=== PATIENT | female | born 1995 | race Caucasian/White ===

== ENCOUNTER 2020-07-18 16:28 | Emergency (ER) | payer SELFPAY ==
--- OUTSIDE RECORDS SUMMARY | 2020-07-18 16:30 | XMS REPORT | Continuity of Care Document ---
:1995 Author Organization [facility] Address [address] [place] [address] Dr. Pickard[address] [place] [id number] Care Team Providers Name Role Phone NONE Primary Care Physician Unavailable Problems This patient has no known problems. Allergies, Adverse Reactions, Alerts This patient has no known allergies or adverse reactions. Medications This patient has no known medications. Procedures This patient has no known procedures. Encounters Start End Encounter Admission Attending Care Care Encounter Source Date/Time Date/Time Type Type Clinicians Facility Department ID 2016-11-21 2016-11-21 Emergency [facility] [id number] Medical 12:48:00 12:48:00 [facility] 2016-11-19 2016-11-19 Emergency E [facility] [id number] Medical 12:50:00 12:50:00 [facility] Results Test Description Test Time Test Comments Results Result Sourc e Comments PATHOLOGY REPORT 2018-09-29 TISSUE CONSULTATION 15:01:00 [facility].[address], [place] [address] CHANCE KING M.D.ROBERT L. HUTTON, M.D.CHARLES E. BURNS, M.D. 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 It rangesfrom 1.5 cm at the cystic duct to about 3 cm in diameter near themid fundus. The gallbladder is sectioned releasing slightlytenacious green-yellow bile and a single vzurhhur-caiqwkozongb-c reen stone about 1.8 cm in greatest diameters. Mucosa andmuscle wall are fairly uniformly 0.1 (or 0.2) cm in thickness. Nomucosal excrescences are seen. RS in one cassette.PATHOLOGIST: Deion Lewis Electronically Signed: 09/29/2018 B-HCG QUAL (KIT) 2018-09-26 10:25:00 Test Item Value Reference Range Interpretation Comme nts HCGQUAL (test code = HCGQUAL) NEGATIVE NEGATIVE URINE: NEGATIVE = < 20 mIU/ML; POSITIVE= >/= 2 0 mIU/ML SERUM: NEGATIVE = < 10 mIU/ML; POSITIVE= >/= 1 0 mIU/ML SOURCE (test code = SOURCE) URINE HCG INTERNAL POSITIVE CNTRL (test PASS PASS code = HCGIPC) HCG LOT # (test code = UHCGLOT) [id number] HCG EXPIRATION DATE (test code = 92194401 UHCGEXP) [id number] 11:03:00 Test Item Value Reference Range Interpretation Comments SODIUM (test code = 144 MMOL/L 137-145 NA) K+ (test code = 5.3 MMOL/L 3.5-5.1 H PLEASE NOTE NEW KSERUM) REFERENCE RANGE (S) IN EFFECT EFFECTIVE 010 - NEW ANALYZER (V ITROS 5600) CHLORIDE (test code 105 MMOL/L 98-107 = CL) CO2 (test code = 30 MMOL/L 22-30 CO2) BUN (test code = 11 MG/DL 7-17 BUN) CREA (test code = 0.5 MG/DL 0.7-1.2 L CREA) GLUCOSE (test code 83 MG/DL 70-99 Fasting glucose = GLUCOSE) normal <100 MG/ DL- Citizen Of [place] [employer] recommendation* * CALCIUM (test code 9.5 MG/DL 8.4-10.2 = CABLOOD) TOTPROT (test code 7.4 G/DL 6.3-8.2 = TOTPROT) ALBUMIN (test code 4.4 G/DL 3.5-5.0 = ALBSERUM) BILITOT (test code 0.3 MG/DL 0.2-1.3 = BILITOT) AST (test code = 19 U/L 15-46 AST) PHOSALK (test code 104 U/L 38-126 = PHOSALK) ALT (test code = 22 U/L 13-69 ALT) GFR (test code = 160 A GFR of >9 0 GFR) mL/min/1.73m2 mL/min/1.73m2 is considered norm al. [id number] 11:00:00 Test Item Value Reference Range Interpretation Comments GLUCOSE (test code = URGLU) NEGATIVE MG/DL NEG-100 BILIRUBN (test code = URBILI) NEGATIVE NEGATIVE KETONE (test code = URKET) NEGATIVE MG/DL NEGATIVE BLOOD (test code = URBLD) NEGATIVE UR PH (test code = URPH) 6.0 5.0-7.5 PROTEIN (test code = URPRO) NEGATIVE MG/DL NEGATIVE NITRITES (test code = URNIT) NEGATIVE NEGATIVE UROBILINGEN (test code = 0.2 EU/DL 0.2-1.0 URURO) LEUKOCYT (test code = URLEU) SMALL NEGATIVE UA COLOR (test code = UA YELLOW YELLOW COLOR) CLARITY (test code = CLARITY) CLEAR CLEAR SP GRAV (test code = URSPGRAV) 1.016 1.000-1.025 UAMICRO (test code = UAMICRO) YES WBC (test code = URWBC) 8 /HPF 0-5 H RBC (test code = URRBC) 0 /HPF 0-2 CASTS (test code = CAST) 2 /LPF 0-3 UR EPI (test code = EPI) 74 /LPF BACTERIA (test code = NEGATIVE NONE BACTERIA) [id number] 10:51:00 Test Item Value Reference Range Interpretation Comments WBC (test code = 7.4 K/UL 3.5-10.9 WBC) RBC (test code = 4.53 M/UL 4.0-5.0 RBC) HGB (test code = 12.8 G/DL 11.5-15.5 HGB) HCT (test code = 40.4 % 34-46 HCT) MCV (test code = 89.2 FL 80-98 MCV) MCH (test code = 28.3 PG 28-32 MCH) MCHC (test code = 31.7 G/DL 32.5-36.5 L MCHC) RDW (test code = 12.8 % 11.5-14.5 RDW) PLT (test code = 267 K/UL 150-450 PLT) MPV (test code = 9.3 FL 7.4-10.4 MPV) MANDIFF (test code = NO MANDIFF) SCAN (test code = NO SCAN) NEUT% (test code = 50.7 % 40-75 NEUT%) LYMPH% (test code = 35.4 % 24-44 LYMPH%) MONO% (test code = 5.6 % 0-13 MONO%) EOS% (test code = 7.7 % 0-4 H EOS%) BASO % (test code = 0.5 % 0-2 BASO%) IG (test code = IG) 0 % 0-1 IG% (test code = 0.1 % 0-1 IG% = Metam yelocytes, IG%) Myelocytes, and Promyelocytes. (Immature neutr ophils not including " bands".) > 3% IG indic ates risk of sepsis NRBC% (test code = 0 /100 WBC NRBC%) ABS NEUT (test code 3.7 K/UL 1.2-7.2 = NEUT) PROTHROMBIN TIME WITH [id number] 10:51:00 Test Item Value Reference Range Interpretation Comments PROTHROMBIN TIME 12.6 SECONDS 12.0-14.6 INR Usual R aung = 2 (test code = PT) to 3 for pr evention of deep vein thrombosis (DVT ) INR (test code = INR) 0.9 [id number] 10:51:00 Test Item Value Reference Range Interpretation Comments PTT (test code = 31.2 SECONDS 24.4-36.3 HEPARIN THE RAPEUTIC PTT) RANGE 57-92 SEC ONDS US [id number] 05:18:20Patient: BHARATH FLEMING Date/Time05/11/2018 05:03 CSTReason for ExamAbdominal pain, right upper quadrantReportOrdering Physician: Jayme higginbotham Indication: Abdominal pain, right upper quadrantAdditional Clinical Information:Permanent images are acquired for the patient's medical record. The pancreas is normal in appearance. The gallbladder is contracted. There is a stone in the sludge ball. Common bile duct measures 3 to 4.5 mm. There is no gallbladder wall thickening of the gallbladder is contracted. Intrahepatic bile ducts are not dilated.The right kidney is 12.7 x 5.7 cm with is no hydronephrosis.The liver is normal in size and echogenicity. Abdominal aorta and IVC normal in caliber.IMPRESSION: Contracted postprandial gallbladder.There is a visible stone and sludge ball without ultrasound evidence of acute cholecystitis.RL: [id number] Final Dictated by: MD Soraida, Soraida SDictated DT/TM: 05/11/2018 5:22 amSigned by:MD Soraida, Soraida SSigned (Electronic Signature): 05/11/2018 5:18 amCT Angio [id number] 01:53:01Patient: BHARATH FLEMING Date/Time05/11/2018 01:46 CSTReason for ExamChest painReportOrdering Physician: Ra TranClinical Indication: Chest painAdditional Clinical Information:The exam is performed with axial postcontrast images with 3-D MIPS reconstruction. The exam was performed using the ALARA principles. Interpretation based on extrapolated NASCET criteria.There is slightly suboptimal enhancement of the pulmonary arteries. There are no larger central emboli. The heart size is normal. There is no pericardial effusion. Upper liver spleen enhances normally.There is no adrenal mass. Probable gallstone.Lung windows shows no infiltrates or effusions.IMPRESSION: Slightly suboptimal enhancement of the pulmonary arteries. No larger central emboli.2. No infiltrates effusions or edema.3. Possible gallstone versus motion artifact.[id number]: [id number] Final Dictated by: MD Soraida, Soraida SDictated DT/TM: 05/11/2018 1:57 amSigned by: MD Soraida, Soraida SSigned (Electronic Signature): 05/11/2018 1:53 amHEPATITIS C ANTIBODY [id number] 08:00:00 Test Item Value Reference Range Interpretation Comments SCRN HCV (test code NEGATIVE NEGATIVE Hepatiti s C Antibody test = SCRN HCV) is for screenin g purposes only. All react chanelle will be confirmed by additional test ing. [id number] 06:32:00 Test Item Value Reference Range Interpretation Comments WBC (test code = 8.6 K/UL 3.5-10.9 WBC) RBC (test code = 2.91 M/UL 4.0-5.0 L RBC) HGB (test code = 8.6 G/DL 11.5-15.5 L HGB) HCT (test code = 26.1 % 34-46 L HCT) MCV (test code = 89.7 FL 80-98 MCV) MCH (test code = 29.6 PG 28-32 MCH) MCHC (test code = 33.0 G/DL 32.5-36.5 MCHC) RDW (test code = 12.2 % 11.5-14.5 RDW) PLT (test code = 128 K/UL 150-450 L PLT) MPV (test code = 11.8 FL 7.4-10.4 H MPV) MANDIFF (test code = NO MANDIFF) SCAN (test code = NO SCAN) NEUT% (test code = 69.1 % 40-75 NEUT%) LYMPH% (test code = 23.1 % 24-44 L LYMPH%) MONO% (test code = 6.3 % 0-13 MONO%) EOS% (test code = 0.9 % 0-4 EOS%) BASO % (test code = 0.2 % 0-2 BASO%) IG (test code = IG) 0 % 0-1 IG% (test code = 0.4 % 0-1 IG% = Metam yelocytes, IG%) Myelocytes, and Promyelocytes. (Immature neutr ophils not including " bands".) > 3% IG indic ates risk of sepsis NRBC% (test code = 0 /100 WBC NRBC%) ABS NEUT (test code 5.9 K/UL 1.2-7.2 = NEUT) RPR FOR SERUM [id number] 05:32:00 Test Item Value Reference Range Interpretation Comments RPR (test code = NONREACTIVE NONREACTIVE RPR) NR = NON-REACTIVE R = REACTIVE HIV 1/2 [id number] 12:38:00 Test Item Value Reference Range Interpretation Comments HIV 1/2 ANTIBODY NONREACTIVE NONREACTIVE This test i s used for (test code = AHIV) SCREENING purposes only. All reac tive results are pre limenary and confirmatio n results will fo llow. [id number] 12:13:00 Test Item Value Reference Range Interpretation Comments BLOOD TYPE (test code = TYPE) A Rh Positive ANTIBODY SCREEN (test code = NEGATIVE NEGATIVE SCREEN) DRUG SCREEN W/ [id number] 11:52:00 Test Item Value Reference Range Interpretation Comments AMPHETAMINES (test code NEGATIVE NEGATIVE This is an unconfirmed = AMPHET) screening. Res ult are to be used for medical purposes (treat ment) only. Not inte nded for non-medical purposes. Cut-o ff concentration f or a positive result for each drug: Amph etamine - 1,000 ng/ml Barbiturate - 2 00 ng/ml Benzodiaz epine - 200 ng/ml Canna binoids - 50 ng/ml Coca ine - 300 ng/ml Opiat es - 300 ng/ml PCP - 25 ng/ml BARBITURATES (test code NEGATIVE NEGATIVE = KAUSHIK) BENZODIAZEPINES (test NEGATIVE NEGATIVE code = BENZO) CANNABINOIDS (test code NEGATIVE NEGATIVE = NEGRA) COCAINE (test code = NEGATIVE NEGATIVE MARK) OPIATES (test code = NEGATIVE NEGATIVE OPIATE) PHENCYCLIDINE(PCP) NEGATIVE NEGATIVE (test code = PHENCY) [id number] 11:22:00 Test Item Value Reference Range Interpretation Comments WBC (test code = 10.1 K/UL 3.5-10.9 WBC) RBC (test code = 3.77 M/UL 4.0-5.0 L RBC) HGB (test code = 11.3 G/DL 11.5-15.5 L HGB) HCT (test code = 33.6 % 34-46 L HCT) MCV (test code = 89.1 FL 80-98 MCV) MCH (test code = 30.0 PG 28-32 MCH) MCHC (test code = 33.6 G/DL 32.5-36.5 MCHC) RDW (test code = 12.4 % 11.5-14.5 RDW) PLT (test code = 153 K/UL 150-450 PLT) MPV (test code = 11.5 FL 7.4-10.4 H MPV) MANDIFF (test code = NO MANDIFF) SCAN (test code = NO SCAN) NEUT% (test code = 81.0 % 40-75 H NEUT%) LYMPH% (test code = 14.6 % 24-44 L LYMPH%) MONO% (test code = 3.2 % 0-13 MONO%) EOS% (test code = 0.5 % 0-4 EOS%) BASO % (test code = 0.2 % 0-2 BASO%) IG (test code = IG) 0 % 0-1 IG% (test code = 0.5 % 0-1 IG% = Metam yelocytes, IG%) Myelocytes, and Promyelocytes. (Immature neutr ophils not including " bands".) > 3% IG indic ates risk of sepsis NRBC% (test code = 0 /100 WBC NRBC%) ABS NEUT (test code 8.2 K/UL 1.2-7.2 H = NEUT) [id number] 11:21:00 Test Item Value Reference Range Interpretation Comments GLUCOSE (test code = URGLU) NEGATIVE MG/DL NEG-100 BILIRUBN (test code = URBILI) NEGATIVE NEGATIVE KETONE (test code = URKET) 15 MG/DL NEGATIVE BLOOD (test code = URBLD) MODERATE UR PH (test code = URPH) 7.0 5.0-7.5 PROTEIN (test code = URPRO) 300 MG/DL NEGATIVE NITRITES (test code = URNIT) NEGATIVE NEGATIVE UROBILINGEN (test code = 0.2 EU/DL 0.2-1.0 URURO) LEUKOCYT (test code = URLEU) NEGATIVE NEGATIVE UA COLOR (test code = UA YELLOW YELLOW COLOR) CLARITY (test code = CLARITY) CLOUDY CLEAR SP GRAV (test code = URSPGRAV) 1.016 1.000-1.025 UAMICRO (test code = UAMICRO) YES WBC (test code = URWBC) 4 /HPF 0-5 RBC (test code = URRBC) 15 /HPF 0-2 H CASTS (test code = CAST) 8 /LPF 0-3 H UR EPI (test code = EPI) 167 /LPF BACTERIA (test code = TRACE NONE BACTERIA) 37200& PELVIS W/O [id number] 13:58:51CT ABDOMEN AND CT PELVIS WITHOUT IV OR ORAL CONTRAST (CT STONEPROTOCOL):CLINICAL HISTORY: Vaginal ble eding. Back pain.Radiation dose lowering techniques were used with automated exposurecontrol, adjusting the mA according to patient's size.Images were started at the lung bases and extended through theupperabdomen and below the pubic symphysis without IV or oral contrast.Examination was tailored as astone protocol. No previous studies areavailable for comparison at the time interpretation. The partiallyvisualized lung bases appear clear. No abnormality is seen within theliver or spleen on this noncontrast examination. The right lobe of theliver measures 17.4 cm in length. The spleen measures 9.7 cm in length.The gallbladder appears normal. Both adrenal glands are normal incontour. Pancreas appears normal. There are no intrarenal calculi andthere is no obstructive uropathy. The abdominal aorta and IVC are normalin caliber. No retroperitoneal or mesenteric adenopathy is identified.The images were extended inferiorly below the pubic symphysis. There areno pelvic masses, or pelvic adenopathy. A large right ovarian cyst isidentified measuring 5 cm in diameter. IUD is noted a tampon is seenwithin the vagina. A trace amount of free fluid is seen within thepelvis.IMPRESSION:1. Right ovarian this measuring 5 cm in diameter. Trace amount of freefluid is seen within the pelvis.2. IUD is noted.3. No intrarenal calculi or obstructive uropathy.Report was printed in the emergency room at 1405 hours.
--- NOTE | 2020-07-18 20:38 | ER ---
Nurse's Notes [facility] Name: Rod Chiu Age: 24 yrs Sex: Female : 1995 Arrival Date: 07/18/2020 Time: 16:31 Bed 12 Private MD: Diagnosis: Acute pharyngitis;Acute pharyngitis due to other specified organisms Presentation: 07/18 17:05 Chief complaint: Patient states: PELAEZ, and sore throat since Saturday. Slight cough. ll1 Coronavirus screen: Client denies travel out of the [place] in the last 14 days. cough unrelated to allergies, fatigue, headache, nausea, sore throat, Client presents with at least one sign or symptom that may indicate coronavirus-19. Standard/surgical mask placed on the client. Ebola Screen: Patient denies travel to an Ebola-affected area in the 21 days before illness onset. Initial Sepsis Screen: Does the patient meet any 2 criteria? No. Patient's initial sepsis screen is negative. Does the patient have a suspected source of infection? Yes: Other: sore throat. Risk Assessment: Do you want to hurt yourself or someone else? Patient reports no desire to harm self or others. Onset of symptoms was July 16, 2020. 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 - Social history:: Smoking status: Patient denies any tobacco usage or history of. Screenin:30 Abuse screen: Denies threats or abuse. Denies injuries from another. Nutritional wh screening: No deficits noted. Tuberculosis screening: No symptoms or risk factors identified. Fall Risk None identified. Assessment: 19:20 General: Appears in no apparent distress. Behavior is calm, cooperative, appropriate wh for age. Pain: Complains of pain in sore throat. Neuro: Level of Consciousness is awake, alert, obeys commands, Oriented to person, place, time, situation, Appropriate for age. Cardiovascular: Heart tones S1 S2. Respiratory: Airway is patent Respiratory effort is even, unlabored, Respiratory pattern is regular, symmetrical, Breath sounds are clear bilaterally. GI: Abdomen is flat, non-distended. : No signs and/or symptoms were reported regarding the genitourinary system. EENT: Throat is reddened. Derm: Skin is intact, is healthy with good turgor, Skin is pink, warm \T\ dry. normal. Musculoskeletal: Circulation, motion, and sensation intact. 20:29 Reassessment: Patient appears in no apparent distress at this time. No changes from previously documented assessment. Patient and/or family updated on plan of care and expected duration. Pain level reassessed. Patient is alert, oriented x 3, equal unlabored respirations, skin warm/dry/pink. Vital Signs: 17:05 BP 120 / 79; Pulse 89; Resp 16; Temp 98.9; Pulse Ox 99% ; Weight 68.04 kg; Height 5 ft. ll1 2 in. (157.48 cm); Pain 8/10; 20:30 BP 118 / 76; Pulse 84; Resp 18; Pulse Ox 99% on R/A; wh 17:05 Body Mass Index 27.44 (68.04 kg, 157.48 cm) 1 ED Course: 16:31 Patient arrived in ED. mr 17:06 Triage completed. ll1 17:07 Arm band placed on. 1 19:21 Juan Rivera MD is Attending Physician. tw4 19:22 Temi Shaw, RN is Primary Nurse. 19:30 Patient has correct armband on for positive identification. Bed in low position. Call light in reach. Side rails up X 1. Pulse ox on. NIBP on. 20:52 No provider procedures requiring assistance completed. Patient did not have IV access during this emergency room visit. Administered Medications: No medications were administered Outcome: 20:38 Discharge ordered by . tw4 20:52 Discharged to home ambulatory, with family. 20:52 Condition: stable 20:52 Discharge instructions given to patient, Instructed on discharge instructions, follow up and referral plans. POC Demonstrated understanding of instructions, follow-up care, POC 20:53 Patient left the ED. Signatures: WatsonRosa M mr Temi Shaw, RN RN Juan Rivera MD MD 4 Zia, Lynsay, RN RN ll1
--- NOTE | 2020-07-18 20:39 | EDPHYS ---
Physician Documentation [facility] Name: Rod Chiu Age: 24 yrs Sex: Female : 1995 Arrival Date: 07/18/2020 Time: 16:31 Bed 12 Private MD: ED Physician Juan Rivera HPI: 07/18 20:22 This 24 yrs old Female presents to ER via Ambulatory with complaints of Sore tw4 Throat. 20:22 The patient presents with sore throat. The patient describes throat pain as dry. Onset: tw4 The symptoms/episode began/occurred 2 day(s) ago. Severity of symptoms: At their worst the symptoms were moderate, in the emergency department the symptoms are unchanged. Modifying factors: The symptoms are alleviated by nothing, the symptoms are aggravated by swallowing. Associated signs and symptoms: Pertinent positives: flu-like symptoms, myalgias. The patient has not experienced similar symptoms in the past. 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 - Social history:: Smoking status: Patient denies any tobacco usage or history of. ROS: 20:22 Constitutional: Negative for fever, chills, and weight loss, Eyes: Negative for injury, tw4 pain, redness, and discharge. 20:22 Neck: Negative for injury, pain, and swelling, Cardiovascular: Negative for chest pain, palpitations, and edema, Respiratory: Negative for shortness of breath, cough, wheezing, and pleuritic chest pain, Abdomen/GI: Negative for abdominal pain, nausea, vomiting, diarrhea, and constipation, Back: Negative for injury and pain, MS/Extremity: Negative for injury and deformity, Skin: Negative for injury, rash, and discoloration, Neuro: Negative for headache, weakness, numbness, tingling, and seizure. 20:22 ENT: Positive for sore throat. Exam: 20:22 Constitutional: This is a well developed, well nourished patient who is awake, alert, tw4 and in no acute distress. Head/Face: Normocephalic, atraumatic. Chest/axilla: Normal chest wall appearance and motion. Nontender with no deformity. No lesions are appreciated. Cardiovascular: Regular rate and rhythm with a normal S1 and S2. No gallops, murmurs, or rubs. Normal PMI, no JVD. No pulse deficits. Respiratory: Lungs have equal breath sounds bilaterally, clear to auscultation and percussion. No rales, rhonchi or wheezes noted. No increased work of breathing, no retractions or nasal flaring. 20:22 ENT: Posterior pharynx: erythema, that is mild. Vital Signs: 17:05 BP 120 / 79; Pulse 89; Resp 16; Temp 98.9; Pulse Ox 99% ; Weight 68.04 kg; Height 5 ft. ll1 2 in. (157.48 cm); Pain 8/10; 20:30 BP 118 / 76; Pulse 84; Resp 18; Pulse Ox 99% on R/A; wh 17:05 Body Mass Index 27.44 (68.04 kg, 157.48 cm) ll1 MDM: 20:22 Data reviewed: vital signs, nurses notes. Data reviewed: lab test result(s). Data tw4 interpreted: Pulse oximetry: Interpretation: normal. Test interpretation: by ED physician or midlevel provider:. Counseling: I had a detailed discussion with the patient and/or guardian regarding: the historical points, exam findings, and any diagnostic results supporting the discharge/admit diagnosis. 20:38 Patient medically screened. tw4 07/18 19:25 Order name: Strep; Complete Time: 20:37 tw4 07/18 19:59 Order name: Throat Culture EDMS Administered Medications: No medications were administered Disposition: 07/18/20 20:38 Discharged to Home. Impression: Acute pharyngitis, Acute pharyngitis due to other specified organisms. - Condition is Stable. - Discharge Instructions: Pharyngitis, Viral Respiratory Infection, Pharyngitis, Ptqg-ea-Bozd, Sore Throat, Csdq-tx-Qyqq. - Medication Reconciliation Form, Thank You Letter, Antibiotic Education, Prescription Opioid Use form. - Follow up: Private Physician; When: Upon discharge from the Emergency Department; Reason: Recheck today's complaints, Continuance of care, Re-evaluation by your physician. Signatures: Dispatcher [employer] EDMS Temi Shaw, RN RN wh Juan Rivera MD MD tw4 Dev Lizarraga RN RN ll1 Corrections: (The following items were deleted from the chart) 20:53 20:38 07/18/2020 20:38 Discharged to Home. Impression: Acute pharyngitis; Acute wh pharyngitis due to other specified organisms. Condition is Stable. Forms are Medication Reconciliation Form, Thank You Letter, Antibiotic Education, Prescription Opioid Use. Follow up: Private Physician; When: Upon discharge from the Emergency Department; Reason: Recheck today's complaints, Continuance of care, Re-evaluation by your physician. tw4
[2020-07-18 21:45] VITALS: BP 118/76; O2SAT 99
[2020-07-18 21:47] VITALS: TEMP 98.9
== END 2020-07-18 20:53 | disposition home or self-care (01) ==
LOC: ER 16:28
DX: J02.8 Acute pharyngitis due to other specified organisms (principal)
CPT/HCPCS: 87070; 87081; 99283

== ENCOUNTER 2021-09-21 09:21 | Emergency (ER) | payer OTHER, SELFPAY ==
--- OUTSIDE RECORDS SUMMARY | 2021-09-21 09:23 | XMS REPORT | Continuity of Care Document ---
:1995 Author Organization [facility] t Address [address] [place] [address] [address] Care Team Providers Name Role Phone NONE [...] ID 2016-11-21 2016-11-21 Emergency E [facility] [id number] Medical 12:48:00 12:48:00 [facility] 2016-11-19 2016-11-19 Emergency E [facility] [id number] Medical 12:50:00 12:50:00 [facility] Results Test Description Test Time Test Comments Results Result Sourc e Comments PATHOLOGY REPORT 2018-09-29 TISSUE CONSULTATION 15:01:00 [facility] PFLUGERVILLEDEPARTMENT OF PATHOLOGYP.O[address] [address] CHANCE KING M.D.ROBERT L. HUTTON, M.D.CHARLES E. BURNS, M.D. 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 It rangesfrom 1.5 cm at the cystic duct to about 3 cm in diameter near themid fundus. The gallbladder is sectioned releasing slightlytenacious green-yellow bile and a single mozyeibn-csmrbfxfnacw-s reen stone about 1.8 cm in greatest [...] HCG LOT # (test code = UHCGLOT) [id number] HCG EXPIRATION DATE (test code = 29156571 UHCGEXP) [id number] 11:03:00 Test Item Value Reference Range Interpretation [...] glucose = GLUCOSE) normal <100 MG/ DL- [employer] recommendation* * CALCIUM (test [...] GFR) mL/min/1.73m2 mL/min/1.73m2 is considered norm al. [id number] 11:00:00 Test Item Value Reference Range Interpretation [...] BACTERIA (test code = NEGATIVE NONE BACTERIA) [id number] 10:51:00 Test Item Value Reference Range Interpretation [...] K/UL 1.2-7.2 = NEUT) PROTHROMBIN TIME WITH [id number] 10:51:00 Test Item Value Reference Range Interpretation Comments PROTHROMBIN TIME 12.6 SECONDS 12.0-14.6 INR Usual R aung = 2 (test code = PT) to 3 for pr evention of deep vein thrombosis (DVT ) INR (test code = INR) 0.9 [id number] 10:51:00 Test Item Value Reference Range Interpretation Comments PTT (test code = 31.2 SECONDS 24.4-36.3 HEPARIN THE RAPEUTIC PTT) RANGE 57-92 SEC ONDS US [id number] 05:18:20Patient: BHARATH FLEMING Date/Time05/11/2018 05:03 CSTReason for [...] without ultrasound evidence of acute cholecystitis.RL: 460AF: 97023 Final Dictated by: MD Soraida, Soraida SDictated DT/TM: 05/11/2018 5:22 amSigned by:MD Soraida Soraida SSigned (Electronic Signature): 05/11/2018 5:18 amCT Angio [id number] 01:53:01Patient: BHARATH FLEMING Date/Time05/11/2018 01:46 CSTReason for ExamChest painReportOrdering Physician: Ra Persaudinical Indication: Chest painAdditional Clinical Information:The exam is [...] or edema.3. Possible gallstone versus motion artifact.RL: 460AF: 43307 Final Dictated by: MD Soraida, Soraida SDictated DT/TM: 05/11/2018 1:57 amSigned by: MD Soraida Soraida SSigned (Electronic Signature): 05/11/2018 1:53 amHEPATITIS C ANTIBODY [id number] 08:00:00 Test Item Value Reference Range Interpretation Comments SCRN HCV (test code NEGATIVE NEGATIVE Hepatiti s C Antibody test = SCRN HCV) is for screenin g purposes only. All react chanelle will be confirmed by additional test ing. [id number] 06:32:00 Test Item Value Reference Range Interpretation [...] K/UL 1.2-7.2 = NEUT) RPR FOR SERUM [id number] 05:32:00 Test Item Value Reference Range Interpretation Comments RPR (test code = NONREACTIVE NONREACTIVE RPR) NR = NON-REACTIVE R = REACTIVE HIV 1/2 [id number] 12:38:00 Test Item Value Reference Range Interpretation Comments HIV 1/2 ANTIBODY NONREACTIVE NONREACTIVE This test i s used for (test code = AHIV) SCREENING purposes only. All reac tive results are pre limenary and confirmatio n results will fo llow. [id number] 12:13:00 Test Item Value Reference Range Interpretation Comments BLOOD TYPE (test code = TYPE) A Rh Positive ANTIBODY SCREEN (test code = NEGATIVE NEGATIVE SCREEN) DRUG SCREEN W/ [id number] 11:52:00 Test Item Value Reference Range Interpretation [...] PHENCYCLIDINE(PCP) NEGATIVE NEGATIVE (test code = PHENCY) [id number] 11:22:00 Test Item Value Reference Range Interpretation [...] code 8.2 K/UL 1.2-7.2 H = NEUT) [id number] 11:21:00 Test Item Value Reference Range Interpretation [...] BACTERIA (test code = TRACE NONE BACTERIA) 75136& PELVIS W/O [id number] 13:58:51CT ABDOMEN AND CT PELVIS WITHOUT IV [...]
--- NOTE | 2021-09-21 09:45 | EDPHYS ---
Physician Documentation [facility] Name: Rod Chiu Age: 26 yrs Sex: Female : 1995 Arrival Date: 09/21/2021 Time: 09:23 Bed 18 Private MD: ED Physician Wilbert Valverde HPI: 09/21 09:26 This 26 yrs old Female presents to ER via Ambulatory with complaints of Nausea, Neck sm6 Pain, <24hrs Old. 09:26 This 26 yrs old Female presents to ER via Ambulatory with complaints of Nausea, Neck sm6 Pain, <24hrs Old. 09:26 The patient presents to the emergency department with nausea, that is mild. Onset: The sm6 symptoms/episode began/occurred gradually, 2 week(s) ago. Possible causes: Stress. The symptoms are aggravated by movement, The symptoms are alleviated by nothing. OTC Ibuprofen has helped slightly. Associated signs and symptoms: Pertinent positives: nausea, Pertinent negatives: abdominal pain, fever, vomiting, difficulty speaking or walking. . Severity of symptoms: At their worst the symptoms were moderate in the emergency department the symptoms are unchanged Pain is currently a 5 / 10. The patient has experienced similar episodes in the past, multiple times. The patient has not recently seen a physician. This 26 year old female that drove herself to the ER is concerned over ongoing headache that starts in upper back and bilateral neck and radiates up back of head is causing constant pressure headache that has not been relieved by Ibuprofen and over the counter migraine medication that she tried once. . 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 - Social history:: Smoking status: Patient denies any tobacco usage or history of. Patient/guardian denies using street drugs, IV drugs, over the counter diet medications, tobacco products. - Family history:: not pertinent. ROS: 09:59 Constitutional: Negative for fever, chills, and weight loss, Eyes: Negative for injury, sm6 pain, redness, and discharge, ENT: Negative for injury, pain, and discharge, Cardiovascular: Negative for chest pain, palpitations, and edema, Respiratory: Negative for shortness of breath, cough, wheezing, and pleuritic chest pain, MS/Extremity: Negative for injury and deformity, Skin: Negative for injury, rash, and discoloration, Allergy/Immunology: Negative for hives, rash, and allergies, Hematologic/Lymphatic: Negative for swollen nodes, abnormal bleeding, and unusual bruising. 09:59 Neck: Positive for pain with movement, pain at rest, tenderness, Negative for injury or acute deformity, mass, swollen nodes. 09:59 Abdomen/GI: Positive for nausea, Negative for abdominal pain, vomiting, diarrhea, constipation. 09:59 Back: Positive for pain with movement, Negative for injury or acute deformity. 09:59 Neuro: Positive for headache, Negative for altered mental status, dizziness, seizure activity, syncope, weakness. 09:59 Psych: Positive for Stress. Exam: 10:08 Constitutional: This is a well developed, well nourished patient who is awake, alert, sm6 and in no acute distress. Head/Face: Normocephalic, atraumatic. Eyes: Pupils equal round and reactive to light, extra-ocular motions intact. Lids and lashes normal. Conjunctiva and sclera are non-icteric and not injected. Cornea within normal limits. Periorbital areas with no swelling, redness, or edema. ENT: Nares patent. No nasal discharge, no septal abnormalities noted. Oropharynx with no redness, swelling, or masses, exudates, or evidence of obstruction, uvula midline. Mucous membranes moist. Neck: Trachea midline, no thyromegaly or masses palpated, and no cervical lymphadenopathy. No Meningismus. Cardiovascular: Regular rate and rhythm with a normal S1 and S2. No gallops, murmurs, or rubs. Normal PMI, no JVD. No pulse deficits. Respiratory: Lungs have equal breath sounds bilaterally, clear to auscultation and percussion. No rales, rhonchi or wheezes noted. No increased work of breathing, no retractions or nasal flaring. Abdomen/GI: Soft, non-tender, with normal bowel sounds. No distension or tympany. No guarding or rebound. No evidence of tenderness throughout. Back: No spinal tenderness. Full range of motion. Skin: Warm, dry with normal turgor. Normal color with no rashes, no lesions, and no evidence of cellulitis. Neuro: Awake and alert, GCS 15, oriented to person, place, time, and situation. Cranial nerves II-XII grossly intact. Motor strength 5/5 in all extremities. Sensory grossly intact. Cerebellar exam normal. Normal gait. Normal finger to nose and Rhomberg. Psych: Awake, alert, with orientation to person, place and time. Behavior, mood, and affect are within normal limits. 10:08 Neck: C-spine: Paraspinous tenderness right worse than left. , ROM/movement: pain, that is mild, with rotation to the left, with rotation to the right. 10:08 Back: pain, that is mild, of the left trapezius, right trapezius, left scapular area and right scapular area, muscle spasm, Tightness noted to trapezius area. . Vital Signs: 09:30 BP 133 / 86; Pulse 80; Resp 16; Temp 98.2; Pulse Ox 100% ; Weight 71.21 kg; Height 5 ll1 ft. 2 in. (157.48 cm); Pain 7/10; 09:30 Body Mass Index 28.72 (71.21 kg, 157.48 cm) ll1 MDM: 09:45 Patient medically screened. [facility] 10:15 Data reviewed: vital signs, nurses notes. [facility] 10:16 ED course: Patient has frequent headaches and is in no acute distress. Patient has no [facility] neurological changes that would warrant further diagnostic testing. Patient is in agreement that we will give her non sedating oral medications due to her needing to drive herself back home. She will try prescribed medication and do further follow up with her primary care provider. . 10:23 Data interpreted: Pulse oximetry:. Counseling: I had a detailed discussion with the [facility] patient and/or guardian regarding: the historical points, exam findings, and any diagnostic results supporting the discharge/admit diagnosis, the need for outpatient follow up, to return to the emergency department if symptoms worsen or persist or if there are any questions or concerns that arise at home. Response to treatment: There is no appreciated change of the patient's symptoms at this time, Patient needs to drive herself home. . Administered Medications: 09:54 Drug: Ondansetron 4 mg Route: PO; [facility] 09:54 Drug: Fioricet - Esgic 325 mg-40 mg-50 mg 2 tab-caps Route: PO; jh6 Disposition: 18:09 Co-signature as Attending Physician, Wilbert Valverde MD. ma2 Disposition Summary: 09/21/21 09:45 Discharge Ordered Location: Home sm6 Problem: an ongoing problem sm6 Symptoms: are unchanged sm6 Condition: Stable sm6 Diagnosis - Episodic tension-type headache sm6 - Nausea sm6 Discharge Instructions: - Discharge Summary Sheet sm6 - General Headache Without Cause, Ptoo-wc-Ribp sm6 Forms: - Medication Reconciliation Form sm6 - Thank You Letter sm6 - Antibiotic Education sm6 - Prescription Opioid Use sm6 Prescriptions: - Fioricet 50-300-40 mg Oral capsule - take 1 capsule by ORAL route every 4 hours as needed; 20 capsule; Refills: 0, sm6 Product Selection Permitted Signatures: Wilbert Valverde MD MD ma2 Dev Lizarraga RN RN 1 Ingrid Gill RN RN jh6 Judith Hernandez NP HOME ENERGY INSPECTOR 6 Corrections: (The following items were deleted from the chart) 09:59 09:42 This 26 yrs old Female presents to ER via Ambulatory with complaints of Nausea, sm6 Neck Pain, <24hrs Old. 6 10:29 10:23 Admission orders: after a detailed discussion of the patient's condition and 6 case, the admit orders are written by me. 6 : 10:23 Medical screen evaluation completed. EMTALA emergency medical condition absent. 6 6
--- NOTE | 2021-09-21 09:45 | ER ---
Nurse's Notes [facility] Name: Rod Chiu Age: 26 yrs Sex: Female : 1995 Arrival Date: 09/21/2021 Time: 09:23 Bed 18 Private MD: Diagnosis: Episodic tension-type headache;Nausea Presentation: 09/21 09:30 Chief complaint: Patient states: PELAEZ with neck pain and nausea since 09/05. No fever. Not ll1 sleeping well. Coronavirus screen: Vaccine status: Patient reports being unvaccinated. Client denies travel out of the [place] in the last 14 days. At this time, the client does not indicate any symptoms associated with coronavirus-19. Ebola Screen: Patient denies travel to an Ebola-affected area in the 21 days before illness onset. Initial Sepsis Screen: Does the patient meet any 2 criteria? No. Patient's initial sepsis screen is negative. Does the patient have a suspected source of infection? Yes: S/S of meningitis or endocarditis. Risk Assessment: Do you want to hurt yourself or someone else? Patient reports no desire to harm self or others. Onset of symptoms was September 05, 2021. 09:30 Method Of Arrival: Ambulatory 1 09:30 Acuity: JAIDEN 3 ll1 Triage Assessment: 09:31 General: Appears uncomfortable, Behavior is cooperative, appropriate for age. Pain: ll1 Complains of pain in head Quality of pain is described as aching. Neuro: Reports dizziness, headache. GI: Reports nausea. 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 - Social history:: Smoking status: Patient denies any tobacco usage or history of. Patient/guardian denies using street drugs, IV drugs, over the counter diet medications, tobacco products. - Family history:: not pertinent. Screenin:30 Abuse screen: Denies threats or abuse. Nutritional screening: No deficits noted. jh6 09:30 Tuberculosis screening: No symptoms or risk factors identified. Fall Risk None jh6 identified. Assessment: 09:30 General: Appears in no apparent distress. comfortable, Behavior is calm, cooperative. jh6 09:30 Pain: Complains of pain in forehead and right side of head Pain currently is 6 out of jh6 10 on a pain scale. Quality of pain is described as throbbing. Neuro: Oriented to person, place, time, Reports headache frontal area. GI: Abdomen is flat, Bowel sounds present X 4 quads. Reports nausea. Musculoskeletal: Reports pain in base of the skull. 09:50 General: pt states that she has never had the meds that were prescribed before. advised jh6 that she will be watched for 15-20min for evaluation for reaction. . 10:23 Reassessment: No changes from previously documented assessment. pt has had no reaction jh6 to meds. Vital Signs: 09:30 BP 133 / 86; Pulse 80; Resp 16; Temp 98.2; Pulse Ox 100% ; Weight 71.21 kg; Height 5 ll1 ft. 2 in. (157.48 cm); Pain 7/10; 09:30 Body Mass Index 28.72 (71.21 kg, 157.48 cm) 1 ED Course: 09:23 Patient arrived in ED. rg4 09:26 Judith Hernandez NP is PHCP. sm6 09:26 Wilbert Valverde MD is Attending Physician. 6 09:28 Ingrid Gill, RN is Primary Nurse. jh6 09:29 Arm band placed on Patient placed in an exam room, on a stretcher. ll1 09:31 Triage completed. ll1 09:56 Bed in low position. Call light in reach. Side rails up X 1. jh6 10:24 Patient did not have IV access during this emergency room visit. 6 Administered Medications: 09:54 Drug: Ondansetron 4 mg Route: PO; jh6 09:54 Drug: Fioricet - Esgic 325 mg-40 mg-50 mg 2 tab-caps Route: PO; 6 Outcome: 09:45 Discharge ordered by . 6 10:23 Discharged to home ambulatory. jh6 10:23 Condition: good 10:23 Discharge instructions given to patient, Instructed on discharge instructions, follow up and referral plans. Demonstrated understanding of instructions, follow-up care, medications, Prescriptions given X 1. 10:24 Patient left the ED. 6 Signatures: Mendy Gr rg4 Dev Lizarraga, RN RN ll1 Ingrid Gill RN RN jh6 Judith Hernandez, CIRCUIT DESIGN ENGINEER CIRCUIT DESIGN ENGINEER sm6
[2021-09-21] MEDS ORDERED: ACETAMIN/CAFFEINE/BUTALB TAB PO ONE (09:55)
[2021-09-21] MEDS ORDERED: ONDANSETRON 4 MG (ODT) TAB ONE (09:56)
[2021-09-21 10:34] VITALS: BP 133/86; TEMP 98.2; O2SAT 100
== END 2021-09-21 10:24 | disposition home or self-care (01) ==
LOC: ER 09:21
DX: G44.219 Episodic tension-type headache, not intractable (principal); R11.0 Nausea
CPT/HCPCS: 99283

== ENCOUNTER 2021-09-26 11:46 | Emergency (ER) | payer OTHER ==
--- OUTSIDE RECORDS SUMMARY | 2021-09-26 11:49 | XMS REPORT | Continuity of Care Document ---
:1995 Author Organization [facility] Address [address] [place] [address] Dr. Pickard[address] [place] [address] Care Team Providers Name Role Phone NONE [...] ID 2016-11-21 2016-11-21 Emergency E [facility] [id number] Medical 12:48:00 12:48:00 [facility] 2016-11-19 2016-11-19 Emergency E [facility] [id number] Medical 12:50:00 12:50:00 [facility] Results Test Description Test Time Test Comments Results Result Sourc e Comments PATHOLOGY REPORT 2018-09-29 TISSUE CONSULTATION 15:01:00 [facility]PORTBAPTIST [facility]ENTERDEPARTMENT OF PATHOLOGYP.O[address], [place] [address] CHANCE KING M.D.ROBERT L. HUTTON, M.D.CHARLES E. BURNS, M.D. Patient: BHARATH FLEMING 1995 23 FRoom:Hosp#: [id number] Order ing Physician: Donald ZAYAS Rec.: 09/26/2018Date of Proc.: 09/26/2018Lab No.: [id number] Cli nical History:Calculus of gallbladder with acute [...] releasing slightlytenacious green-yellow bile and a single pidjvkzv-wzgyglulmlhe-c reen stone about 1.8 cm in greatest [...] HCG LOT # (test code = UHCGLOT) [id number] HCG EXPIRATION DATE (test code = 65415118 UHCGEXP) [id number] 11:03:00 Test Item Value Reference Range Interpretation [...] glucose = GLUCOSE) normal <100 MG/ DL- [employer] recommendation* * CALCIUM (test [...] GFR) mL/min/1.73m2 mL/min/1.73m2 is considered norm al. [id number] 11:00:00 Test Item Value Reference Range Interpretation [...] BACTERIA (test code = NEGATIVE NONE BACTERIA) [id number] 10:51:00 Test Item Value Reference Range Interpretation [...] K/UL 1.2-7.2 = NEUT) PROTHROMBIN TIME WITH [id number] 10:51:00 Test Item Value Reference Range Interpretation Comments PROTHROMBIN TIME 12.6 SECONDS 12.0-14.6 INR Usual R aung = 2 (test code = PT) to 3 for pr evention of deep vein thrombosis (DVT ) INR (test code = INR) 0.9 [id number] 10:51:00 Test Item Value Reference Range Interpretation Comments PTT (test code = 31.2 SECONDS 24.4-36.3 HEPARIN THE RAPEUTIC PTT) RANGE 57-92 SEC ONDS US [id number] 05:18:20Patient: BHARATH FLEMING Date/Time05/11/2018 05:03 CSTReason for [...] without ultrasound evidence of acute cholecystitis.RL: 460AF: 79375 Final Dictated by: MD Soraida, Soraida SDictated DT/TM: 05/11/2018 5:22 amSigned by:MD Soraida, Soraida SSigned (Electronic Signature): 05/11/2018 5:18 amCT Angio [id number] 01:53:01Patient: BHARATH FLEMING Date/Time05/11/2018 01:46 CSTReason for [...] edema.3. Possible gallstone versus motion artifact.RL: 460AFC: [id number] Final Dictated by: MD Soraida, Soraida SDictated DT/TM: 05/11/2018 1:57 amSigned by: MD Soraida, Soraida SSigned (Electronic Signature): 05/11/2018 1:53 amHEPATITIS C ANTIBODY [id number] 08:00:00 Test Item Value Reference Range Interpretation Comments SCRN HCV (test code NEGATIVE NEGATIVE Hepatiti s C Antibody test = SCRN HCV) is for screenin g purposes only. All react chanelle will be confirmed by additional test ing. [id number] 06:32:00 Test Item Value Reference Range Interpretation [...] K/UL 1.2-7.2 = NEUT) RPR FOR SERUM [id number] 05:32:00 Test Item Value Reference Range Interpretation Comments RPR (test code = NONREACTIVE NONREACTIVE RPR) NR = NON-REACTIVE R = REACTIVE HIV 1/2 [id number] 12:38:00 Test Item Value Reference Range Interpretation Comments HIV 1/2 ANTIBODY NONREACTIVE NONREACTIVE This test i s used for (test code = AHIV) SCREENING purposes only. All reac tive results are pre limenary and confirmatio n results will fo llow. [id number] 12:13:00 Test Item Value Reference Range Interpretation Comments BLOOD TYPE (test code = TYPE) A Rh Positive ANTIBODY SCREEN (test code = NEGATIVE NEGATIVE SCREEN) DRUG SCREEN W/ [id number] 11:52:00 Test Item Value Reference Range Interpretation [...] PHENCYCLIDINE(PCP) NEGATIVE NEGATIVE (test code = PHENCY) [id number] 11:22:00 Test Item Value Reference Range Interpretation [...] code 8.2 K/UL 1.2-7.2 H = NEUT) [id number] 11:21:00 Test Item Value Reference Range Interpretation [...] BACTERIA (test code = TRACE NONE BACTERIA) 85244& PELVIS W/O [id number] 13:58:51CT ABDOMEN AND CT PELVIS WITHOUT IV [...]
--- NOTE | 2021-09-26 13:12 | RAD REPORT ---
EXAM DESCRIPTION: RAD - Chest Single View - 09/26/2021 1:02 pm CLINICAL HISTORY: CHEST PAIN COMPARISON: None available TECHNIQUE: AP portable chest image was obtained 09/26/2021 1:02 pm . FINDINGS: Lungs are clear. Heart and vasculature are normal. No measurable pleural effusion and no p neumothorax. No acute bony abnormality seen. No acute aortic findings suspected. Two metallic bars ov erlie the lower chest from body piercings. IMPRESSION: No acute cardiopulmonary process.
[2021-09-26] MEDS ORDERED: ONDANSETRON 4 MG/2 ML VIAL ONE (13:53)
[2021-09-26] MEDS ORDERED: LIDOCAINE VISCOUS 2% SOLN 15 ML UDC ONE (13:53)
[2021-09-26] MEDS ORDERED: MAGNES/ALUMIN/SIMET 30ML UCUP ONE (13:53)
[2021-09-26 14:16] LABS: Absolute Lymphocytes (CBC) 1.8 K/uL (0.7-4.9); Hematocrit 37.7 % (36.0-45.0); Lymphocytes % 15.6 % (15.3-44.8); MPV 7.6 fL (7.6-11.3)
[2021-09-26 14:34] LABS: BUN Blood Urea Nitrogen 6 mg/dL (7-18); Bicarbonate 29 mmol/L (21-32); Glucose Level 92 mg/dL (74-106); Lipase 456 U/L (73-393); Potassium 3.5 mmol/L (3.5-5.1); Sodium Level 139 mmol/L (136-145); Troponin High Sensitivity 6.4 pg/mL (<58.9)
--- NOTE | 2021-09-26 15:05 | EDPHYS ---
Physician Documentation [facility] Name: Rod Chiu Age: 26 yrs Sex: Female : 1995 Arrival Date: 09/26/2021 Time: 11:48 Bed 10 Private MD: ED Physician Fabio Durant HPI: 09/26 12:19 This 26 yrs old Female presents to ER via Ambulatory with complaints of Chest Pain, jmm Dizziness, Vomiting. 12:19 The patient or guardian reports chest pain that is located primarily in the anterior jm chest wall. The pain radiates to. The chest pain is described as aching, burning. This is a 26 year old female with no chronic medical conditions that presents to the ED with complaints of epigastric abdominal pain which radiates into her chest causing sob. This occurred after eating. Patient has had her GB removed. Symptoms have occurred previously. . 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 Flu vaccine status is unknown. - Social history:: Smoking status: Patient denies any tobacco usage or history of. ROS: 12:19 Constitutional: Negative for fever, chills, and weight loss. jmm 12:19 Cardiovascular: Positive for chest pain. 12:19 Respiratory: Positive for shortness of breath. 12:19 Abdomen/GI: Positive for abdominal pain, nausea and vomiting. 12:19 All other systems are negative. Exam: 12:19 Constitutional: This is a well developed, well nourished patient who is awake, alert, jmm and in no acute distress. Head/Face: atraumatic. Eyes: EOMI, no conjunctival erythema appreciated ENT: Moist Mucus Membranes Neck: Trachea midline, Supple Chest/axilla: Normal chest wall appearance and motion. Cardiovascular: Regular rate and rhythm. No edema appreciated Respiratory: Normal respirations, no respiratory distress appreciated 12:19 Back: Normal ROM Skin: General appearance color normal MS/ Extremity: Moves all extremities, no obvious deformities appreciated, no edema noted to the lower extremities Neuro: Awake and alert Psych: Behavior is normal, Mood is normal, Patient is cooperative and pleasant 12:19 Abdomen/GI: Inspection: abdomen appears normal, Bowel sounds: normal, Palpation: soft, nontender. Vital Signs: 12:12 BP 126 / 102; Pulse 86; Resp 16; Temp 99.0; Pulse Ox 100% ; Weight 71.21 kg; Height 5 1 ft. 2 in. (157.48 cm); Pain 10/10; 14:06 BP 108 / 89; Pulse 86; Resp 18; Pulse Ox 98% on R/A; Pain 6/10; ld1 15:26 BP 101 / 67; Pulse 73; Resp 18; Pulse Ox 100% on R/A; ld1 12:12 Body Mass Index 28.72 (71.21 kg, 157.48 cm) ll1 MDM: 12:27 Patient medically screened. [facility] 15:02 Data reviewed: vital signs, nurses notes. ED course: Patient states feeling much jmm better. I do not suspect an acute intrabdominal process. No abdominal pain on palpation. Advised to follow up with GI for further evaluation. Patient otherwise given strict return precautions. patient understood and agrees with the plan of care. . 09/26 12:28 Order name: Basic Metabolic Panel; Complete Time: 14:41 [facility] 09/26 12:28 Order name: CBC with Diff; Complete Time: 14:19 [facility] 09/26 12:28 Order name: Troponin HS; Complete Time: 14:41 [facility] 09/26 12:28 Order name: XRAY Chest (1 view); Complete Time: 13:35 [facility] 09/26 12:28 Order name: Lipase; Complete Time: 14:41 [facility] 09/26 12:19 Order name: EKG; Complete Time: 12:19 [facility] 09/26 12:19 Order name: EKG - Nurse/Tech; Complete Time: 12:19 [facility] 09/26 12:28 Order name: Cardiac monitoring; Complete Time: 14:06 [facility] 09/26 12:28 Order name: IV Saline Lock; Complete Time: 14:06 [facility] 09/26 12:28 Order name: Labs collected and sent; Complete Time: 14:06 [facility] 09/26 12:28 Order name: O2 Per Protocol; Complete Time: 13:46 [facility] 09/26 12:28 Order name: O2 Sat Monitoring; Complete Time: 13:46 [facility] Administered Medications: 13:58 Drug: GI Cocktail without - (Maalox Suspension 30 ml, Lidocaine Liquid 2 % 15 ld1 ml) Route: PO; 14:06 Drug: Zofran (Ondansetron) 4 mg Route: IVP; Site: right antecubital; ld1 Disposition: 18:54 Co-signature as Attending Physician, Fabio Durant MD. rn Disposition Summary: 09/26/21 15:04 Discharge Ordered Location: Home [facility] Condition: Stable [facility] Diagnosis - Epigastric pain jmm - Vomiting jm Followup: m - With: Fabián Garcia MD - When: 2 - 3 days - Reason: Recheck today's complaints, Continuance of care, Re-evaluation by your physician Followup: m - With: Nadeem Ray MD - When: 2 - 3 days - Reason: Recheck today's complaints, Continuance of care, Re-evaluation by your physician Followup: m - With: Shane Cespedes MD - When: 2 - 3 days - Reason: Recheck today's complaints, Continuance of care, Re-evaluation by your physician Discharge Instructions: - Discharge Summary Sheet [facility] - Food Choices for Gastroesophageal Reflux Disease, Adult jmm - Vomiting, Adult jmm Forms: - Medication Reconciliation Form [facility] - Thank You Letter [facility] - Antibiotic Education [facility] - Prescription Opioid Use [facility] Prescriptions: - omeprazole 40 mg Oral capsule,delayed release(DR/EC) - take 1 capsule by ORAL route once daily before a meal; 30 capsule; Refills: 0, [facility] Product Selection Permitted - ondansetron 4 mg Oral tablet,disintegrating - take 1 tablet by ORAL route every 4-6 hours As needed; 30 tablet; Refills: 0, [facility] Product Selection Permitted - dicyclomine 20 mg Oral Tablet - take 1 tablet by ORAL route 4 times per day; 30 tablet; Refills: 0, Product [facility] Selection Permitted Signatures: Dispatcher [employer] EDMS Nito Savage PA PA Fabio Donnelly MD MD rn Lewis, Lynsay, RN RN ll1 Becki Arredondo RN RN ld1
--- NOTE | 2021-09-26 15:05 | ER ---
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 Coronavirus screen: Vaccine status: Patient reports being unvaccinated. Client denies travel out of the [place] in the last 14 days. At this time, the client does not indicate any symptoms associated with coronavirus-19. Ebola Screen: Patient denies travel to an Ebola-affected area in the 21 days before illness onset. Initial Sepsis Screen: Does the patient meet any 2 criteria? No. Patient's initial sepsis screen is negative. Does the patient have a suspected source of infection? No. Patient's initial sepsis screen is negative. Risk Assessment: Do you want to hurt yourself or someone else? Patient reports no desire to harm self or others. Onset of symptoms was September 26, 2021. 12:12 Method Of Arrival: Ambulatory ll1 12:12 Acuity: JAIDEN 3 ll1 Triage Assessment: 12:13 General: Appears uncomfortable, Behavior is cooperative, appropriate for age. Pain: ll1 Complains of pain in chest Pain currently is 10 out of 10 on a pain scale. Quality of pain is described as squeezing. Cardiovascular: Reports chest pain, lightheadedness, nausea. 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 Flu vaccine status is unknown. - Social history:: Smoking status: Patient denies any tobacco usage or history of. Screenin:06 Abuse screen: Denies threats or abuse. Denies injuries from another. Nutritional ld1 screening: No deficits noted. Tuberculosis screening: No symptoms or risk factors identified. Fall Risk None identified. Assessment: 14:06 General: Appears in no apparent distress. comfortable, Behavior is calm, cooperative, ld1 appropriate for age. Pain: Complains of pain in chest Pain does not radiate. Pain currently is 6 out of 10 on a pain scale. Quality of pain is described as throbbing, Pain began gradually, Is intermittent. Neuro: Level of Consciousness is awake, alert, obeys commands, Oriented to person, place, time, situation. Cardiovascular: Capillary refill < 3 seconds Patient's skin is warm and dry. Respiratory: Airway is patent Respiratory effort is even, unlabored. GI: Abdomen is flat, non-distended. : No signs and/or symptoms were reported regarding the genitourinary system. EENT: No signs and/or symptoms were reported regarding the EENT system. Derm: No signs and/or symptoms reported regarding the dermatologic system. Musculoskeletal: No signs and/or symptoms reported regarding the musculoskeletal system. 15:26 Reassessment: Patient appears in no apparent distress at this time. Patient is alert, ld1 oriented x 3, equal unlabored respirations, skin warm/dry/pink. Patient states feeling better. Vital Signs: 12:12 BP 126 / 102; Pulse 86; Resp 16; Temp 99.0; Pulse Ox 100% ; Weight 71.21 kg; Height 5 ll1 ft. 2 in. (157.48 cm); Pain 10/10; 14:06 BP 108 / 89; Pulse 86; Resp 18; Pulse Ox 98% on R/A; Pain 6/10; ld1 15:26 BP 101 / 67; Pulse 73; Resp 18; Pulse Ox 100% on R/A; ld1 12:12 Body Mass Index 28.72 (71.21 kg, 157.48 cm) ll1 ED Course: 11:48 Patient arrived in ED. mr 12:04 Nito Savage PA is PHCP. jmm 12:13 Triage completed. ll1 12:13 Arm band placed on. ll1 13:04 XRAY Chest (1 view) In Process Unspecified. EDMS 13:46 Becki Arredondo, RN is Primary Nurse. ld1 14:06 Patient has correct armband on for positive identification. Placed in gown. Bed in low ld1 position. Call light in reach. Side rails up X2. property assessment monitor on. Pulse ox on. NIBP on. Door closed. Noise minimized. Warm blanket given. 14:06 No provider procedures requiring assistance completed. Inserted saline lock: 20 gauge ld1 in right antecubital area, using aseptic technique. Blood collected. Patient maintains SpO2 saturation greater than 95% on room air. 15:04 Fabián Garcia MD is Referral Physician. [facility] 15:04 Nadeem Ray MD is Referral Physician. [facility] 15:04 Shane Cespedes MD is Referral Physician. [facility] 15:05 Fabio Durant MD is Attending Physician. [facility] 15:26 IV discontinued, intact, bleeding controlled, No redness/swelling at site. ld1 Administered Medications: 13:58 Drug: GI Cocktail without - (Maalox Suspension 30 ml, Lidocaine Liquid 2 % 15 ld1 ml) Route: PO; 14:06 Drug: Zofran (Ondansetron) 4 mg Route: IVP; Site: right antecubital; ld1 Outcome: 15:04 Discharge ordered by . [facility] 15:26 Discharged to home ambulatory, with family. ld1 15:26 Condition: stable 15:26 Discharge instructions given to patient, family, Instructed on discharge instructions, follow up and referral plans. medication usage, Demonstrated understanding of instructions, follow-up care, medications, Prescriptions given X 3. 15:26 Patient left the ED. ld1 Signatures: Dispatcher [employer] EDMS Nito Savage PA PA jmm Rivera, Mary mr Dev Lizarraga, RN RN ll1 Becki Arredondo RN RN ld1
[2021-09-26 17:17] VITALS: TEMP 99
[2021-09-26 17:19] VITALS: BP 101/67; O2SAT 100
--- NOTE | 2021-09-27 12:56 | EKG ---
Test Date: 2021-09-26 Test Time: 12:16:00 Tensile Tester: LINDA MEASUREMENT RESULTS: Intervals: Rate: 86 UT: 118 QRSD: 82 QT: 364 QTc: 435 [place]: P: 82 UT: 118 QRS: 87 T: 71 INTERPRETIVE STATEMENTS: Normal sinus rhythm Right atrial enlargement Borderline ECG No previous ECG available for comparison Electronically Signed On 09-27-21 12:52:17 CDT by Alejandro Mcclelland
== END 2021-09-26 15:26 | disposition home or self-care (01) ==
LOC: ER 11:46
DX: R10.13 Epigastric pain (principal); R11.10 Vomiting, unspecified
CPT/HCPCS: 93005; 85025; 80048; 36415; 84484; 83690; 71045; J2405; 96374; 99285

== ENCOUNTER 2021-11-25 10:37 | Emergency (ER) | payer OTHER ==
--- NOTE | 2021-11-25 12:05 | ER ---
Nurse's Notes [facility] Name: Rod Chiu Age: 26 yrs Sex: Female : 1995 Arrival Date: 11/25/2021 Time: 10:39 Bed 12 Private MD: Malinda Cardoso Diagnosis: Coronavirus infection, unspecified Presentation: 11/25 10:45 Chief complaint: Patient states: had an ear infection about a week ago and has already vg1 completed antibiotics; states yesterday starting cough, diarrhea and fever. States temperature was 102 at home and took Excedrin and Mucinex. Denies ABD pain. Also stated may have been exposed to someone with covid. Coronavirus screen: Vaccine status: Patient reports being unvaccinated. Client denies travel out of the [place] in the last 14 days. Ebola Screen: Patient denies exposure to infectious person. Patient denies travel to an Ebola-affected area in the 21 days before illness onset. Initial Sepsis Screen: Does the patient meet any 2 criteria? No. Patient's initial sepsis screen is negative. Does the patient have a suspected source of infection? No. Patient's initial sepsis screen is negative. Risk Assessment: Do you want to hurt yourself or someone else? Patient reports no desire to harm self or others. Onset of symptoms was November 25, 2021. 10:45 Method Of Arrival: Ambulatory vg1 10:45 Acuity: JAIDEN 4 vg1 Triage Assessment: 10:48 General: Appears uncomfortable, Behavior is calm, cooperative. Pain: Denies pain. vg1 Respiratory: Airway is patent Respiratory effort is even, unlabored. GI: Reports diarrhea. 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 - Social history:: Smoking status: Patient denies any tobacco usage or history of. Screenin:31 Abuse screen: Denies threats or abuse. Denies injuries from another. Nutritional ss screening: No deficits noted. Tuberculosis screening: Never had TB. Fall Risk None identified. Assessment: 12:31 General: Appears in no apparent distress. comfortable, Behavior is calm, cooperative, ss Reports fever for yesterday . feeling ill for 1-2 days. Pain: Denies pain. Neuro: Pineda Agitation-Sedation Scale (RASS): 0 - Alert and Calm. Neuro: Reports headache. Cardiovascular: Capillary refill < 3 seconds is brisk in bilateral fingers Patient's skin is warm and dry. Respiratory: Respiratory effort is even, unlabored, Respiratory pattern is regular, symmetrical. GI: No signs and/or symptoms were reported involving the gastrointestinal system. EENT: Derm: Skin is intact, is healthy with good turgor, Skin is pink, warm \\T\\ dry. normal. Musculoskeletal: Range of motion: intact in all extremities. Vital Signs: 10:45 BP 119 / 81; Pulse 77; Resp 16; Temp 98.5(O); Pulse Ox 100% ; Weight 70.76 kg; Height 5 vg1 ft. 2 in. (157.48 cm); Pain 0/10; 10:45 Body Mass Index 28.53 (70.76 kg, 157.48 cm) vg1 ED Course: 10:39 Patient arrived in ED. mr 10:40 Walker Malinda is Private Physician. mr 10:43 [facility] pm1 10:43 Sandeep Sorto MD is Attending Physician. pm1 10:48 Triage completed. vg1 10:48 Arm band placed on. vg1 10:52 COVID swab sent to lab. Flu and/or RSV swab sent to lab. vg1 10:58 Huma Rangel RN is Primary Nurse. 11:02 SARS-COV-2 RT PCR (Document "Date of Onset" if Symptomatic) Sent. mb7 11:02 Flu Sent. mb7 12:31 Patient has correct armband on for positive identification. Bed in low position. Call ss light in reach. 12:31 No provider procedures requiring assistance completed. Patient did not have IV access ss during this emergency room visit. Administered Medications: No medications were administered Outcome: 12:05 Discharge ordered by . pm1 12:31 Discharged to home ambulatory. ss 12:31 Condition: good 12:31 Condition: good 12:31 Discharge instructions given to patient, significant other, Instructed on discharge instructions, follow up and referral plans. Demonstrated understanding of instructions, follow-up care. 12:40 Patient left the ED. Signatures: Walter Rosa M fontenot Huma Rangel, RN RN ss Boaz Ware, RAJESH NURSING INFORMATION SYSTEMS COORDINATOR pm1 Estrella Gr RN RN vg1 FouziaRosa M mb7 Corrections: (The following items were deleted from the chart) 10:50 10:45 Chief complaint: Patient states: had an ear infection about a week ago and has vg1 already completed antibiotics; states yesterday starting cough, diarrhea and fever. States temperature was 102 at home and took Excedrin and Mucinex. Denies ABD pain. vg1
--- NOTE | 2021-11-25 12:05 | EDPHYS ---
Physician Documentation [facility] Name: Rod Chiu Age: 26 yrs Sex: Female : 1995 Arrival Date: 11/25/2021 Time: 10:39 Bed 12 Private MD: Malinda Cardoso ED Physician Sandeep Sorto HPI: 11/25 11:03 This 26 yrs old Female presents to ER via Ambulatory with complaints of Flu Symptoms. pm1 11:03 The patient or guardian reports cough, with no sputum, flu symptoms. Onset: The pm1 symptoms/episode began/occurred yesterday. Modifying factors: The symptoms are alleviated by OTC meds, mucinex, excedrin, the symptoms are aggravated by nothing. 11:04 Associated signs and symptoms: Pertinent positives: fever, sore throat, soft stool, no pm1 diarrhea, Pertinent negatives: chest pain, vomiting, shortness of breath, abdominal pain. Severity of symptoms: in the emergency department the symptoms have improved. The patient has not experienced similar symptoms in the past. The patient has not recently seen a physician. Patient with exposure to co-worker that is positive for covid and her mother has flu a and b. 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 - Social history:: Smoking status: Patient denies any tobacco usage or history of. ROS: 11:04 Cardiovascular: Negative for chest pain, palpitations, and edema. pm1 11:04 Abdomen/GI: Negative for abdominal pain, nausea, vomiting, diarrhea, and constipation, Back: Negative for injury and pain, MS/Extremity: Negative for injury and deformity, Skin: Negative for injury, rash, and discoloration. 11:04 Constitutional: Positive for fever, Negative for poor PO intake. 11:04 ENT: Positive for sore throat, Negative for ear pain. 11:04 Respiratory: Positive for cough, Negative for shortness of breath, sputum production. 11:04 Neuro: Positive for headache. 11:04 All other systems are negative. Exam: 11:04 Constitutional: This is a well developed, well nourished patient who is awake, alert, pm1 and in no acute distress. Head/Face: Normocephalic, atraumatic. 11:04 Skin: Warm, dry with normal turgor. Normal color with no rashes, no lesions, and no evidence of cellulitis. MS/ Extremity: Pulses equal, no cyanosis. Neurovascular intact. Full, normal range of motion. 11:04 Eyes: Exam is negative for acute changes, Periorbital structures: appear normal, Pupils: no acute changes, Extraocular movements: no acute changes, Conjunctiva: no acute changes, no injection. 11:04 ENT: External ear(s): no acute changes, Ear canal(s): no acute changes, TM's: no acute changes, Mouth: no acute changes, Lips: normal, moist, Oral mucosa: normal, pink and intact, moist, Posterior pharynx: no acute changes. 11:04 Neck: Exam negative for acute changes, ROM/movement: no acute changes, Meningeal signs: are not present, nuchal rigidity, is not appreciated. 11:04 Cardiovascular: Exam negative for acute changes, Rate: normal, Rhythm: regular, Pulses: no pulse deficits are appreciated. 11:04 Respiratory: Exam negative for acute changes, respiratory distress, shortness of breath, Breath sounds: are clear throughout. 11:04 Abdomen/GI: Inspection: abdomen appears normal, Palpation: abdomen is soft and non-tender, in all quadrants. 11:04 Neuro: Exam negative for acute changes, Orientation: is normal, Mentation: is normal, Motor: is normal, moves all fours. Vital Signs: 10:45 BP 119 / 81; Pulse 77; Resp 16; Temp 98.5(O); Pulse Ox 100% ; Weight 70.76 kg; Height 5 vg1 ft. 2 in. (157.48 cm); Pain 0/10; 10:45 Body Mass Index 28.53 (70.76 kg, 157.48 cm) vg1 MDM: 10:59 Patient medically screened. pm1 11:07 Data reviewed: vital signs. Data interpreted: Pulse oximetry: on room air is 100 %. pm1 Interpretation: normal. 12:04 Counseling: I had a detailed discussion with the patient and/or guardian regarding: the pm1 historical points, exam findings, and any diagnostic results supporting the discharge/admit diagnosis, lab results, the need for outpatient follow up, to return to the emergency department if symptoms worsen or persist or if there are any questions or concerns that arise at home. 11/25 10:51 Order name: SARS-COV-2 RT PCR (Document "Date of Onset" if Symptomatic); Complete Time: vg1 12:05 11/25 10:51 Order name: Flu; Complete Time: 14:06 vg1 Administered Medications: No medications were administered Disposition: 14:53 Co-signature as Attending Physician, Sandeep Sorto MD I agree with the assessment and kdr plan of care. Disposition Summary: 11/25/21 12:05 Discharge Ordered Location: Home pm1 Problem: new pm1 Symptoms: have improved pm1 Condition: Stable pm1 Diagnosis - Coronavirus infection, unspecified pm1 Followup: pm1 - With: Emergency Department - When: As needed - Reason: Worsening of condition Followup: pm1 - With: Private Physician - When: 2 - 3 days - Reason: Recheck today's complaints, Continuance of care, Re-evaluation by your physician Discharge Instructions: - Discharge Summary Sheet pm1 - COVID-19 pm1 - COVID-19 Frequently Asked Questions pm1 - 10 Things You Can Do to Manage Your COVID-19 Symptoms at Home - [facility] pm1 - COVID-19: Quarantine vs. Isolation - [facility] pm1 Forms: - Medication Reconciliation Form pm1 - Thank You Letter pm1 - Antibiotic Education pm1 - Prescription Opioid Use pm1 Signatures: Dispatcher [employer] EDMS Sandeep Sorto MD MD kdr Marinas, Patrick, NP METAL SHAPING MACHINE OPERATOR pm1 Estrella Gr RN RN vg1 Corrections: (The following items were deleted from the chart) 11:05 11:03 Modifying factors: The symptoms are alleviated by OTC meds, mucinex, the symptoms pm1 are aggravated by nothing. pm1
[2021-11-25 13:07] VITALS: BP 119/81; TEMP 98.5; O2SAT 100
== END 2021-11-25 12:40 | disposition home or self-care (01) ==
LOC: ER 10:37
DX: U07.1 COVID-19 (principal)
CPT/HCPCS: 87804 ×2; 99283; U0003

== ENCOUNTER 2022-01-25 17:08 | Emergency (ER) | payer OTHER ==
--- OUTSIDE RECORDS SUMMARY | 2022-01-25 17:12 | XMS REPORT | Continuity of Care Document ---
:1995 Author Organization [facility] Address [address] [place] [address] Dr. Pickard. [address] [place] [id number] Care Team Providers Name Role Phone NONE [...] ID 2016-11-21 2016-11-21 Emergency E [facility] [id number] Medical 12:48:00 12:48:00 [facility] 2016-11-19 2016-11-19 Emergency E [facility] [id number] Medical 12:50:00 12:50:00 [facility] Results Test Description Test Time Test Comments Results Result Sour e Comments PATHOLOGY REPORT 2018-09-29 TISSUE CONSULTATION 15:01:[address] [facility] OF PATHOLOGYP.[address], [place] [address] CHANCE KING M.D.ROBERT L. HUTTON, M.D.CHARLES E. BURNS, M.D. Patient: BHARATH FLEMING 1995 23 FRoom:Hosp#: [id number] Order ing Physician: Donald ZAYAS Rec.: 09/26/2018Date of Proc.: 09/26/2018Lab No.: [id number] Cli nical History:Calculus of gallbladder with acute [...] releasing slightlytenacious green-yellow bile and a single fpotjost-lzkgwepgiwku-x reen stone about 1.8 cm in greatest [...] HCG LOT # (test code = UHCGLOT) [id number] HCG EXPIRATION DATE (test code = 36492740 UHCGEXP) [id number] 11:03:00 Test Item Value Reference Range Interpretation [...] glucose = GLUCOSE) normal <100 MG/ DL- [employer] recommendation* * CALCIUM (test [...] GFR) mL/min/1.73m2 mL/min/1.73m2 is considered norm al. [id number] 11:00:00 Test Item Value Reference Range Interpretation [...] BACTERIA (test code = NEGATIVE NONE BACTERIA) [id number] 10:51:00 Test Item Value Reference Range Interpretation [...] K/UL 1.2-7.2 = NEUT) PROTHROMBIN TIME WITH [id number] 10:51:00 Test Item Value Reference Range Interpretation Comments PROTHROMBIN TIME 12.6 SECONDS 12.0-14.6 INR Usual R aung = 2 (test code = PT) to 3 for pr evention of deep vein thrombosis (DVT ) INR (test code = INR) 0.9 [id number] 10:51:00 Test Item Value Reference Range Interpretation Comments PTT (test code = 31.2 SECONDS 24.4-36.3 HEPARIN THE RAPEUTIC PTT) RANGE 57-92 SEC ONDS US [id number] 05:18:20Patient: BHARATH FLEMING Date/Time05/11/2018 05:03 CSTReason for ExamAbdominalpain, right upper quadrantReportOrdering Physician: Jayme Loredoinical Indication: Abdominal pain, right upper quadrantAdditional Clinical [...] not dilated.The right kidney is 12.7 x 5.7cm with is no hydronephrosis.The liver is normal in size and echogenicity. Abdominal aorta and IVC normal in caliber.IMPRESSION: Contracted postprandial gallbladder. There is a visible stone and sludgeball without ultrasound evidence of acute cholecystitis.RL: [id number] Final Dictated by: MD Soraida, Soraida SDictated DT/TM: 05/11/2018 5:22 amSigned by: MD Soraida, Soraida SSigned (Electronic Signature): 05/11/2018 5:18 amCT Angio Chest 2018-05-11 01:53:01Patient: BHARATH FLEMING Date/Time05/11/2018 01:46 CSTReason for ExamChest painReportOrdering Physician: Ra TranClinical Indication: Chest painAdditional Clinical Information:The exam is performed with axial postcontrast images with 3-D MIPS reconstruction. The exam was performed using the ALARA principles. Interpretation based on extrapolated NASCET criteria.There is slightlysuboptimal enhancement of the pulmonary arteries. There are no larger central emboli. The heart sizeis normal. There is no pericardial effusion. Upper liver spleen enhances normally.There is no adrenal mass. Probable gallstone.Lung windows shows no infiltrates or effusions.IMPRESSION: Slightly suboptimal enhancement of the pulmonary arteries. No larger central emboli.2. No infiltrates effusions or edema.3. Possible gallstone versus motion artifact.RL: [id number] Final Dictated by: MD Soraida, Soraida SDictated DT/TM: 05/11/2018 1:57 amSigned by: MD Soraida, Soraida SSigned (Electronic Signature): 05/11/2018 1:53 amHEPATITIS C ANTIBODY [id number] 08:00:00 Test Item Value Reference Range Interpretation Comments SCRN HCV (test code NEGATIVE NEGATIVE Hepatiti s C Antibody test = SCRN HCV) is for screenin g purposes only. All react chanelle will be confirmed by additional test ing. [id number] 06:32:00 Test Item Value Reference Range Interpretation [...] K/UL 1.2-7.2 = NEUT) RPR FOR SERUM [id number] 05:32:00 Test Item Value Reference Range Interpretation Comments RPR (test code = NONREACTIVE NONREACTIVE NR = NON-R EACTIVE R = RPR) REACTIVE HIV 1/2 [id number] 12:38:00 Test Item Value Reference Range Interpretation Comments HIV 1/2 ANTIBODY NONREACTIVE NONREACTIVE This test i s used for (test code = AHIV) SCREENING purposes only. All react cindy results are pre limenary and confirmatio n results will fo llow. [id number] 12:13:00 Test Item Value Reference Range Interpretation Comments BLOOD TYPE (test code = TYPE) A Rh Positive ANTIBODY SCREEN (test code = NEGATIVE NEGATIVE SCREEN) DRUG SCREEN W/ [id number] 11:52:00 Test Item Value Reference Range Interpretation Comments AMPHETAMINES (test code NEGATIVE NEGATIVE This is an unconfirmed = AMPHET) screening. Resu lt are to be used for medical purposes (treat ment) only. Not inten ded for non-medical pur poses. Cut-off concent ration for a positive result for each drug: Amphetamine - 1 ,000 ng/ml Barbitura te - 200 ng/ml Benzodiazepine - 200 ng/ml Cannabino ids - 50 ng/ml Cocain e - 300 ng/ml Opiates - 300 ng/ml PCP - 25 ng/ml BARBITURATES (test code NEGATIVE NEGATIVE = KAUSHIK) BENZODIAZEPINES (test NEGATIVE NEGATIVE code = BENZO) CANNABINOIDS (test code NEGATIVE NEGATIVE = NEGRA) COCAINE (test code = NEGATIVE NEGATIVE MARK) OPIATES (test code = NEGATIVE NEGATIVE OPIATE) PHENCYCLIDINE(PCP) NEGATIVE NEGATIVE (test code = PHENCY) [id number] 11:22:00 Test Item Value Reference Range Interpretation [...] code 8.2 K/UL 1.2-7.2 H = NEUT) [id number] 11:21:00 Test Item Value Reference Range Interpretation [...] BACTERIA (test code = TRACE NONE BACTERIA) 89373& PELVIS W/O [id number] 13:58:51CT ABDOMEN AND CT PELVIS WITHOUT IV [...]
[2022-01-25 18:05] LABS: Urine Blood Negative (Negative); Urine Glucose Negative (Negative); Urine Protein Negative (Negative); Urine Specific Gravity >=1.030 (1.005-1.030); Urine pH 5.5 (5.0-7.0)
[2022-01-25 18:45] LABS: Absolute Lymphocytes (CBC) 2.4 K/uL (0.7-4.9); Hematocrit 38.3 % (36.0-45.0); Lymphocytes % 36.2 % (15.3-44.8); MCV 91.7 fL (80-100); MPV 7.5 fL (7.6-11.3); RBC Red Blood Cell Count 4.18 M/uL (3.86-4.86)
[2022-01-25] MEDS ORDERED: FAMOTIDINE 20 MG/2 ML VIAL IV ONE (18:46)
[2022-01-25] MEDS ORDERED: ONDANSETRON 4 MG/2 ML VIAL ONE (18:46)
[2022-01-25 18:56] LABS: Albumin 3.6 g/dL (3.4-5.0); Bilirubin Total 0.2 mg/dL (0.2-1.0); Potassium 3.3 mmol/L (3.5-5.1); Protein, Total 7.1 g/dL (6.4-8.2)
[2022-01-25] MEDS ORDERED: DICYCLOMINE HCL 10 MG CAP ONE (19:01)
--- NOTE | 2022-01-25 19:39 | RAD REPORT ---
EXAM DESCRIPTION: CTAbdomen Pelvis W Contrast - 01/25/2022 7:33 pm CLINICAL HISTORY: Abdominal pain. abdominal pain, nausea COMPARISON: No comparisons TECHNIQUE: Biphasic CT imaging of the abdomen and pelvis was performed with 100 ml non-ionic IV cont rast. All CT scans are performed using dose optimization technique as appropriate and may include automated exposure control or mA/KV adjustment according to patient size. FINDINGS: The lung bases are clear.Cholecystectomy. The liver, spleen, pancreas, adrenal glands and kidneys are within normal limits. No bowel obstruction, free air, free fluid or abscess. The appendix is not identified as a discrete structure, however, no secondary findings of appendicitis are identified. No evidence of significan t lymphadenopathy. No suspicious bony findings. IUD is present in the uterus. IMPRESSION: No acute intra-abdominal or pelvic finding.
--- NOTE | 2022-01-25 21:04 | EDPHYS ---
Physician Documentation [facility] Name: Rod Chiu Age: 26 yrs Sex: Female : 1995 Arrival Date: 01/25/2022 Time: 17:12 Bed 15 Private MD: ED Physician Jeff Workman HPI: 01/25 17:40 This 26 yrs old Female presents to ER via Ambulatory with complaints of Abdominal Pain, jmm Back Pain. 17:40 The patient presents with abdominal pain. Onset: The symptoms/episode began/occurred jmm gradually. The symptoms radiate to back. 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 Complains of nausea but denies vomiting or diarrhea. Patient states she was recently treated for BV and states still having abnormal discharge. Denies dysuria, denies vaginal bleeding. 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 - Social history:: Smoking status: Patient denies any tobacco usage or history of. ROS: 17:40 Constitutional: Negative for fever, chills, and weight loss, Cardiovascular: Negative jmm for chest pain, palpitations, and edema, Respiratory: Negative for shortness of breath, cough, wheezing, and pleuritic chest pain. 17:40 Abdomen/GI: Positive for abdominal pain. 17:40 Back: Positive for radiated pain. 17:40 All other systems are negative. Exam: 17:40 Constitutional: This is a well developed, well nourished patient who is awake, alert, jmm and in no acute distress. Head/Face: atraumatic. Eyes: EOMI, no conjunctival erythema appreciated ENT: Moist Mucus Membranes Neck: Trachea midline, Supple Chest/axilla: Normal chest wall appearance and motion. Cardiovascular: Regular rate and rhythm. No edema appreciated Respiratory: Normal respirations, no respiratory distress appreciated Abdomen/GI: Non distended 17:40 Skin: General appearance color normal MS/ Extremity: Moves all extremities, no obvious deformities appreciated, no edema noted to the lower extremities Neuro: Awake and alert Psych: Behavior is normal, Mood is normal, Patient is cooperative and pleasant 17:40 : Pelvic Exam: External exam: is normal, Speculum exam: bimanual exam reveals cervical motion tenderness, discharge, yellow. Vital Signs: 17:19 BP 118 / 85; Pulse 85; Temp 97.5; Pulse Ox 100% ; Weight 71.67 kg; Height 5 ft. 2 in. ph (157.48 cm); Pain 7/10; 18:45 Resp 16; ll1 18:55 BP 129 / 79; Pulse 73; Resp 15; ll1 20:16 BP 104 / 64; Pulse 68; Resp 16; Pulse Ox 100% on R/A; ll3 17:19 Body Mass Index 28.90 (71.67 kg, 157.48 cm) ph MDM: 17:40 Patient medically screened. [facility] 21:02 Data reviewed: vital signs, nurses notes. Counseling: I had a detailed discussion with rhiannon the patient and/or guardian regarding: the historical points, exam findings, and any diagnostic results supporting the discharge/admit diagnosis, lab results, radiology results, the need for outpatient follow up, to return to the emergency department if symptoms worsen or persist or if there are any questions or concerns that arise at home. ED course: Patient is alert nontoxic in appearance in the ED. Did have some concerns for PID. Patient treated with oral antibiotics. Patient advised follow with PCP and otherwise given strict return precautions. Patient understood and agrees plan of care.. 01/25 17:41 Order name: CBC with Diff; Complete Time: 18:46 [facility] 01/25 17:41 Order name: CMP; Complete Time: 19:01 [facility] 01/25 17:41 Order name: Lipase; Complete Time: 19:01 [facility] 01/25 18:05 Order name: Urine Dipstick-Ancillary; Complete Time: 18:06 [facility] 01/25 20:29 Order name: GC (GONORR/CHLAMYDIA) Probe [facility] 01/25 17:41 Order name: CT Abd/Pelvis - IV Contrast Only; Complete Time: 19:41 [facility] 01/25 20:29 Order name: Wet Prep; Complete Time: 21:54 [facility] 01/25 17:41 Order name: IV Saline Lock; Complete Time: 18:34 [facility] 01/25 17:41 Order name: Labs collected and sent; Complete Time: 18:34 [facility] 01/25 17:41 Order name: Urine Dipstick-Ancillary (obtain specimen); Complete Time: 18:09 [facility] 01/25 17:41 Order name: Urine Test (obtain specimen); Complete Time: 18:09 [facility] 01/25 20:29 Order name: Pelvic Exam Setup; Complete Time: 20:59 [facility] Administered Medications: 18:45 Drug: Pepcid (famotidine) 20 mg Route: IVP; Site: right antecubital; ll1 20:21 Follow up: Response: No adverse reaction ll3 18:45 Drug: Zofran (Ondansetron) 4 mg Route: IVP; Site: right antecubital; ll1 20:21 Follow up: Response: No adverse reaction; Marked relief of symptoms ll3 18:52 Not Given (patient drivingg): morphine 2 mg IVP once over 4 mins ll1 19:02 Drug: Bentyl (dicyclomine) 20 mg Route: PO; ll1 20:20 Follow up: Response: No adverse reaction; Marked relief of symptoms ll3 21:36 Drug: Ketorolac 30 mg Route: IVP; Site: right antecubital; ll3 22:00 Follow up: Response: No adverse reaction ll3 21:36 Drug: Rocephin (cefTRIAXone) 1 grams Route: IV; Rate: calculated rate; Site: right ll3 antecubital; 21:59 Follow up: Response: No adverse reaction; IV Status: Completed infusion; IV Intake: [id number] 21:36 Drug: AZITHromycin 1 grams Route: PO; ll3 22:00 Follow up: Response: No adverse reaction ll3 Disposition Summary: 01/25/22 21:03 Discharge Ordered Location: Home [facility] Condition: Stable [facility] Diagnosis - Pelvic and perineal pain [facility] Followup: [facility] - With: Private Physician - When: 2 - 3 days - Reason: Recheck today's complaints, Continuance of care, Re-evaluation by your physician Discharge Instructions: - Discharge Summary Sheet [facility] - Pelvic Pain, Female [facility] Forms: - Medication Reconciliation Form [facility] - Thank You Letter [facility] - Antibiotic Education [facility] - Prescription Opioid Use [facility] Prescriptions: - Flagyl 500 mg Oral Tablet - take 1 tablet by ORAL route every 12 hours for 7 days; 14 tablet; Refills: 0, [facility] Product Selection Permitted - Diclofenac Sodium 75 mg Oral Tablet Sustained Release - take 1 tablet by ORAL route 2 times per day; 30 tablet; Refills: 0, Product [facility] Selection Permitted - orphenadrine citrate 100 mg Oral Tablet Sustained Release - take 1 tablet by ORAL route 2 times per day As needed; 20 tablet; Refills: 0, [facility] Product Selection Permitted Signatures: Dispatcher [employer] Nito Liriano PA PA jmm Hall, Patricia RN RN Dev Norton RN RN ll1 Mimi Mijares RN RN ll3
--- NOTE | 2022-01-25 21:04 | ER ---
Nurse's Notes [facility] Name: Rod Chiu Age: 26 yrs Sex: Female : 1995 Arrival Date: 01/25/2022 Time: 17:12 Bed 15 Private MD: Diagnosis: Pelvic and perineal pain Presentation: 01/25 17:19 Chief complaint: Patient states: Patient complains of abdominal pain on sides, radiates ph to back. "7" on pain scale. Started this morning about 0900, worse when sitting down. Coronavirus screen: Client denies travel out of the [place] in the last 14 days. At this time, the client does not indicate any symptoms associated with coronavirus-19. Ebola Screen: No symptoms or risks identified at this time. Initial Sepsis Screen: Does the patient meet any 2 criteria? No. Patient's initial sepsis screen is negative. Does the patient have a suspected source of infection? No. Patient's initial sepsis screen is negative. Risk Assessment: Do you want to hurt yourself or someone else? Patient reports no desire to harm self or others. Onset of symptoms was January 25, 2022. 17:19 Method Of Arrival: Ambulatory ph 17:19 Acuity: JAIDEN 4 ph Triage Assessment: 17:22 General: Appears in no apparent distress. Behavior is calm, cooperative, appropriate ph for age. Pain: Complains of pain in right upper quadrant, left upper quadrant, right lower quadrant and left lower quadrant Pain radiates to left low back, left mid back, right mid back and right low back. GI: No deficits noted. 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 - Social history:: Smoking status: Patient denies any tobacco usage or history of. Screenin:46 Abuse screen: Denies threats or abuse. Nutritional screening: No deficits noted. ll1 Tuberculosis screening: No symptoms or risk factors identified. Fall Risk IV access (20 points). Total Castañeda Fall Scale indicates No Risk (0-24 pts). Assessment: 18:20 Reassessment: No changes from previously documented assessment. Patient and/or family ll1 updated on plan of care and expected duration. Pain level reassessed. 18:46 Reassessment: No changes from previously documented assessment. Patient and/or family ll1 updated on plan of care and expected duration. Pain level reassessed. Patient is alert, oriented x 3, equal unlabored respirations, skin warm/dry/pink. 18:56 Reassessment: No changes from previously documented assessment. Patient and/or family ll1 updated on plan of care and expected duration. Pain level reassessed. 20:16 Reassessment: No changes from previously documented assessment. Patient and/or family ll3 updated on plan of care and expected duration. Pain level reassessed. Patient is alert, oriented x 3, equal unlabored respirations, skin warm/dry/pink. Vital Signs: 17:19 BP 118 / 85; Pulse 85; Temp 97.5; Pulse Ox 100% ; Weight 71.67 kg; Height 5 ft. 2 in. ph (157.48 cm); Pain 7/10; 18:45 Resp 16; ll1 18:55 BP 129 / 79; Pulse 73; Resp 15; ll1 20:16 BP 104 / 64; Pulse 68; Resp 16; Pulse Ox 100% on R/A; ll3 17:19 Body Mass Index 28.90 (71.67 kg, 157.48 cm) ED Course: 17:12 Patient arrived in ED. mr 17:12 Nito Savage PA is PHCP. [facility] 17:12 Jeff Workman DO is Attending Physician. [facility] 17:22 Triage completed. ph 17:22 Arm band placed on right wrist. Patient placed in waiting room, Patient notified of ph wait time. 18:24 Dev Lizarraga, JORDAN is Primary Nurse. ll1 18:24 Patient placed in an exam room, on a stretcher. ll1 18:46 Patient has correct armband on for positive identification. Bed in low position. Call ll1 light in reach. Side rails up X 1. Client placed on continuous cardiac and pulse oximetry monitoring. NIBP monitoring applied. 19:35 CT Abd/Pelvis - IV Contrast Only In Process Unspecified. EDMS 22:00 Assist provider with pelvic exam: Set up pelvic tray. Performed by Nito VELEZ 3 Specimens sent to lab. Patient tolerated well. IV discontinued, intact, bleeding controlled, No redness/swelling at site. Pressure dressing applied. Administered Medications: 18:45 Drug: Pepcid (famotidine) 20 mg Route: IVP; Site: right antecubital; ll1 20:21 Follow up: Response: No adverse reaction ll3 18:45 Drug: Zofran (Ondansetron) 4 mg Route: IVP; Site: right antecubital; ll1 20:21 Follow up: Response: No adverse reaction; Marked relief of symptoms ll3 18:52 Not Given (patient drivingg): morphine 2 mg IVP once over 4 mins ll1 19:02 Drug: Bentyl (dicyclomine) 20 mg Route: PO; ll1 20:20 Follow up: Response: No adverse reaction; Marked relief of symptoms ll3 21:36 Drug: Ketorolac 30 mg Route: IVP; Site: right antecubital; ll3 22:00 Follow up: Response: No adverse reaction ll3 21:36 Drug: Rocephin (cefTRIAXone) 1 grams Route: IV; Rate: calculated rate; Site: right ll3 antecubital; 21:59 Follow up: Response: No adverse reaction; IV Status: Completed infusion; IV Intake: [id number] 21:36 Drug: AZITHromycin 1 grams Route: PO; ll3 22:00 Follow up: Response: No adverse reaction ll3 Medication: 18:46 VIS not applicable for this client. ll1 Intake: 21:59 IV: 10ml; Total: 10ml. ll3 Outcome: 21:03 Discharge ordered by MD. jurado 22:00 Discharged to home ambulatory, with family. ll3 22:00 Condition: stable 22:00 Discharge instructions given to patient, family, Instructed on discharge instructions, follow up and referral plans. medication usage, Demonstrated understanding of instructions, follow-up care, medications, Prescriptions given X 3. 22:01 Patient left the ED. ll3 Signatures: Dispatcher [employer] EDMS Nito Savage PA PA jmm Rivera, Mary Jolynn Marquez RN RN ph Lewis, Lynsay, RN RN ll1 Mimi Mijares RN RN ll3
[2022-01-25] MEDS ORDERED: AZITHROMYCIN 250 MG TAB ONE (21:37)
[2022-01-25] MEDS ORDERED: KETOROLAC 30 MG/ML INJ ONE (21:37)
[2022-01-25] MEDS ORDERED: CEFTRIAXONE 1000 MG/VIAL ONE (21:37)
[2022-01-25 23:58] VITALS: TEMP 97.5; O2SAT 100
[2022-01-26 00:16] VITALS: BP 104/64
[2022-01-30 13:35] LABS: C.trachomatis RNA,TMA Not Detected (Not Detected)
== END 2022-01-25 22:01 | disposition home or self-care (01) ==
LOC: ER 17:08
DX: R10.2 Pelvic and perineal pain (principal)
CPT/HCPCS: 96365; 85025; 36415; 87210; 81003; 83690; 80053; 87590; 87490; 74177; 96375; 99284; Q9967; J2405

== ENCOUNTER 2022-03-16 13:33 | Emergency (ER) | payer OTHER ==
--- OUTSIDE RECORDS SUMMARY | 2022-03-16 13:37 | XMS REPORT | Continuity of Care Document ---
:1995 Author Organization [facility] Address [address] [place] [address] Dr. Pickard. [address] [place] [id number] Care Team Providers Name Role Phone NONE [...] ID 2016-11-21 2016-11-21 Emergency E [facility] [id number] Medical 12:48:00 12:48:00 [facility] 2016-11-19 2016-11-19 Emergency E [facility] [id number] Medical 12:50:00 12:50:00 [facility] Results Test Description Test Time Test Comments Results Result Sour e Comments PATHOLOGY REPORT 2018-09-29 TISSUE CONSULTATION 15:01:00 [facility]ED[facility]ARTMENT OF PATHOLOGYP.O[address], [place] [address] CHANCE KING M.D.ROBERT L. HUTTON, M.D.CHARLES E. BURNS, M.D. Patient: BHARATH FLEMING 1995 23 FRoom:Hosp#: [id number] Order ing Physician: Donald ZAYAS Rec.: 09/26/2018Date of Proc.: 09/26/2018Lab No.: [id number] Cli nical History:Calculus of gallbladder with acute [...] releasing slightlytenacious green-yellow bile and a single yyehabmg-gvnhyfxozxku-v reen stone about 1.8 cm in greatest [...] HCG LOT # (test code = UHCGLOT) [id number] HCG EXPIRATION DATE (test code = 19360242 UHCGEXP) [id number] 11:03:00 Test Item Value Reference Range Interpretation [...] glucose = GLUCOSE) normal <100 MG/ DL- [employer] recommendation* * CALCIUM (test [...] GFR) mL/min/1.73m2 mL/min/1.73m2 is considered norm al. [id number] 11:00:00 Test Item Value Reference Range Interpretation [...] BACTERIA (test code = NEGATIVE NONE BACTERIA) [id number] 10:51:00 Test Item Value Reference Range Interpretation [...] K/UL 1.2-7.2 = NEUT) PROTHROMBIN TIME WITH [id number] 10:51:00 Test Item Value Reference Range Interpretation Comments PROTHROMBIN TIME 12.6 SECONDS 12.0-14.6 INR Usual R aung = 2 (test code = PT) to 3 for pr evention of deep vein thrombosis (DVT ) INR (test code = INR) 0.9 [id number] 10:51:00 Test Item Value Reference Range Interpretation Comments PTT (test code = 31.2 SECONDS 24.4-36.3 HEPARIN THE RAPEUTIC PTT) RANGE 57-92 SEC ONDS US [id number] 05:18:20Patient: BHARATH FLEMING Date/Time05/11/2018 05:03 CSTReason for [...] without ultrasound evidence of acute cholecystitis.RL: 460AF: [id number] Final Dictated by: MD Soraida, Soraida SDictated [...] edema.3. Possible gallstone versus motion artifact.RL: 460AFC: [id number] Final Dictated by: MD Soraida, Soraida SDictated DT/TM: 05/11/2018 1:57 amSigned by: MD Soraida, Soraida SSigned (Electronic Signature): 05/11/2018 1:53 amHEPATITIS C ANTIBODY [id number] 08:00:00 Test Item Value Reference Range Interpretation Comments SCRN HCV (test code NEGATIVE NEGATIVE Hepatiti s C Antibody test = SCRN HCV) is for screenin g purposes only. All react chanelle will be confirmed by additional test ing. [id number] 06:32:00 Test Item Value Reference Range Interpretation [...] K/UL 1.2-7.2 = NEUT) RPR FOR SERUM [id number] 05:32:00 Test Item Value Reference Range Interpretation Comments RPR (test code = NONREACTIVE NONREACTIVE NR = NON-R EACTIVE R = RPR) REACTIVE HIV 1/2 [id number] 12:38:00 Test Item Value Reference Range Interpretation Comments HIV 1/2 ANTIBODY NONREACTIVE NONREACTIVE This test i s used for (test code = AHIV) SCREENING purposes only. All react cindy results are pre limenary and confirmatio n results will fo llow. [id number] 12:13:00 Test Item Value Reference Range Interpretation Comments BLOOD TYPE (test code = TYPE) A Rh Positive ANTIBODY SCREEN (test code = NEGATIVE NEGATIVE SCREEN) DRUG SCREEN W/ [id number] 11:52:00 Test Item Value Reference Range Interpretation [...] PHENCYCLIDINE(PCP) NEGATIVE NEGATIVE (test code = PHENCY) [id number] 11:22:00 Test Item Value Reference Range Interpretation [...] code 8.2 K/UL 1.2-7.2 H = NEUT) [id number] 11:21:00 Test Item Value Reference Range Interpretation [...] BACTERIA (test code = TRACE NONE BACTERIA) 04566& PELVIS W/O [id number] 13:58:51CT ABDOMEN AND CT PELVIS WITHOUT IV [...]
[2022-03-16 14:49] LABS: Urine Blood Negative (Negative); Urine Glucose Negative (Negative); Urine Protein Negative (Negative)
[2022-03-16 14:56] LABS: Absolute Lymphocytes (CBC) 2.2 K/uL (0.7-4.9); Hematocrit 39.9 % (36.0-45.0); Lymphocytes % 30.7 % (15.3-44.8); MCV 91.1 fL (80-100); MPV 7.7 fL (7.6-11.3); RBC Red Blood Cell Count 4.38 M/uL (3.86-4.86)
[2022-03-16 15:17] LABS: Urine Mucus Slight /HPF (None Seen); Urine RBC <5 /HPF (None Seen)
[2022-03-16 15:17] LABS: Albumin 4.1 g/dL (3.4-5.0); Bilirubin Total 0.5 mg/dL (0.2-1.0); Potassium 3.3 mmol/L (3.5-5.1); Protein, Total 7.7 g/dL (6.4-8.2)
--- NOTE | 2022-03-16 15:41 | RAD REPORT ---
EXAM DESCRIPTION: US - Transvaginal Study Probe - 03/16/2022 3:08 pm CLINICAL HISTORY: abd pain COMPARISON: No comparisons TECHNIQUE: Endovaginal sonography was performed. FINDINGS: IUD is in place well positioned in the fundal portion of the endometrial cavity. There is a minimal amount of flow oral blood within the endometrial cavity. An endometrial mass or polyp is no t identifiable. No myometrial mass lesion identified. There is no blood or fluid in the cul de sac. 2.9 centimeter left ovarian or paraovarian cyst is present. There is some low-level echogenic debris within the cyst. No wall thickening, septation or mural nodule seen. Additional small left ovarian cy sts and follicles noted. Right ovary shows no dominant solid or cystic mass. No abnormality in either adnexa. Blood flow was d emonstrated in the ovarian stroma. IMPRESSION: Trace amount of fluid or old blood in the normal thickness endometrial cavity. IUD is well positioned in the fundal portion of the endometrial cavity. No suspicious ovarian or adnexal finding. There is a 2.9 centimeter left ovarian or paraovarian cyst present.
--- NOTE | 2022-03-16 16:48 | RAD REPORT ---
EXAM DESCRIPTION: CT - Abdomen Pelvis W Contrast - 03/16/2022 4:19 pm CLINICAL HISTORY: reports middle lower pelvic pain COMPARISON: <Comparisons> TECHNIQUE: Biphasic, helical CT imaging of the abdomen and pelvis was performed following 100 ml non -ionic IV contrast. No oral contrast administered. All CT scans are performed using dose optimization technique as appropriate and may include automated exposure control or mA/KV adjustment according to patient size. FINDINGS: No suspicious findings in the lung bases. The liver, spleen, and pancreas show no suspicious findings. Gallbladder is absent. No biliary tree d ilatation. Symmetric renal function is seen with no hydronephrosis or suspicious renal mass. No pyelonephritis o r acute parenchymal process. No bladder abnormalities. No adrenal abnormalities. IUD is well position ed in the fundal portion of the uterus. No suspicious uterine finding. A 2.5 centimeter left ovarian cyst is present. No suspicious ovarian or adnexal finding. No dilated bowel loops or bowel wall thickening. No evidence for appendicitis or other acute GI proce ss. No free air, free fluid or inflammatory stranding. No hernia, mass or bulky lymphadenopathy. No suspicious bony findings. No significant change from comparison. IMPRESSION: Contrast enhanced CT abdomen and pelvis showing no significant or suspicious finding.
--- NOTE | 2022-03-16 16:54 | EDPHYS ---
Physician Documentation [facility] Name: Rod Chiu Age: 26 yrs Sex: Female : 1995 Arrival Date: 03/16/2022 Time: 13:34 Bed 16 Private MD: ROSA Physician Pierre Werner HPI: 03/16 14:50 This 26 yrs old Female presents to ER via Ambulatory with complaints of Pelvic Pain, kb Abdominal Pain, Low Back Pain. 14:50 The patient presents with abdominal pain in the lower abdomen. Onset: The kb symptoms/episode began/occurred 6 month(s) ago, and became worse 2 week(s) ago. The symptoms do not radiate. Associated signs and symptoms: Pertinent positives: nausea, Pertinent negatives: fever, vomiting. The symptoms are described as constant. Modifying factors: The symptoms are alleviated by nothing, the symptoms are aggravated by nothing. Severity of pain: At its worst the pain was moderate in the emergency department the pain is unchanged. The patient has not experienced similar symptoms in the past. The patient has been recently seen by a physician:. Pt reports lower abd pain and nausea intermittently for 6 months. Has been seen here and by [facility], but no source found. States pain has been worse for the last 2 weeks. . 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 Last tetanus immunization: not immunized. - Social history:: Smoking status: Patient denies any tobacco usage or history of. ROS: 14:47 Constitutional: Negative for fever, chills, and weight loss. kb 14:47 Abdomen/GI: Positive for abdominal pain, nausea, Negative for vomiting, diarrhea, constipation. 14:47 : Positive for pelvic pain, Negative for vaginal bleeding, vaginal discharge, vaginal itching. 14:47 All other systems are negative. Exam: 14:48 Constitutional: This is a well developed, well nourished patient who is awake, alert, kb and in no acute distress. Head/Face: Normocephalic, atraumatic. ENT: Moist Mucous membranes Cardiovascular: Regular rate and rhythm with a normal S1 and S2. No gallops, murmurs, or rubs. No pulse deficits. Respiratory: Respirations even and unlabored. No increased work of breathing. Talking in full sentences Skin: Warm, dry with normal turgor. Normal color. MS/ Extremity: Pulses equal, no cyanosis. Neurovascular intact. Full, normal range of motion. Neuro: Awake and alert, GCS 15, oriented to person, place, time, and situation. Moves all extremities. Normal gait. Psych: Awake, alert, with orientation to person, place and time. Behavior, mood, and affect are within normal limits. 14:48 Abdomen/GI: Inspection: abdomen appears normal, Bowel sounds: normal, Palpation: soft, in all quadrants, moderate abdominal tenderness, in the right upper quadrant, left upper quadrant and right lower quadrant. Vital Signs: 13:48 BP 126 / 85; Pulse 85; Resp 20; Temp 98.5; Pulse Ox 100% ; Weight 69.85 kg; Height 5 kb3 ft. 2 in. (157.48 cm); Pain 7/10; 16:28 BP 100 / 57; Pulse 72; Resp 16; Pulse Ox 96% ; Pain 5/10; db 13:48 Body Mass Index 28.17 (69.85 kg, 157.48 cm) kb3 MDM: 13:55 Patient medically screened. kb 14:48 Data reviewed: vital signs, nurses notes. Data interpreted: Pulse oximetry: on room air kb is 100 %. Interpretation: normal. 16:52 Counseling: I had a detailed discussion with the patient and/or guardian regarding: the kb historical points, exam findings, and any diagnostic results supporting the discharge/admit diagnosis, lab results, radiology results, the need for outpatient follow up, a family practitioner, to return to the emergency department if symptoms worsen or persist or if there are any questions or concerns that arise at home. 03/16 14:50 Order name: Urine Dipstick-Ancillary; Complete Time: 14:52 EDMS 03/16 14:53 Order name: Comprehensive Metabolic Panel; Complete Time: 15:22 EDMS 03/16 14:33 Order name: Transvaginal Study Probe; Complete Time: 15:46 EDMS 03/16 14:53 Order name: Lipase; Complete Time: 15:22 EDMS 03/16 14:53 Order name: CBC with Automated Diff; Complete Time: 15:10 EDMS 03/16 14:54 Order name: Urine Microscopic Only; Complete Time: 15:22 EDMS 03/16 15:00 Order name: Urine --Ancillary (enter results); Complete Time: 15:59 eb 03/16 15:52 Order name: Abdomen ; Complete Time: 16:52 EDMS 03/16 13:51 Order name: IV Saline Lock; Complete Time: 14:58 kb 03/16 13:51 Order name: Labs collected and sent; Complete Time: 14:58 kb 03/16 13:51 Order name: Urine Dipstick-Ancillary (obtain specimen); Complete Time: 15:22 kb 03/16 13:51 Order name: Urine Test (obtain specimen); Complete Time: 15:22 kb Administered Medications: 18:01 Drug: Potassium Chloride 20 mEq Route: PO; iw Disposition Summary: 03/16/22 16:53 Discharge Ordered Location: Home kb Condition: Stable kb Diagnosis - Abdominal pain, Generalized kb Followup: kb - With: Emergency Department - When: As needed - Reason: Worsening of condition Followup: kb - With: Private Physician - When: 2 - 3 days - Reason: Recheck today's complaints, Continuance of care, Re-evaluation by your physician Discharge Instructions: - Discharge Summary Sheet kb - Abdominal Pain, Adult, [id number] kb Forms: - Medication Reconciliation Form kb - Thank You Letter kb - Antibiotic Education kb - Prescription Opioid Use kb - Work release form eb Prescriptions: - Diclofenac Sodium 75 mg Oral tablet,delayed release (DR/EC) - take 1 tablet by ORAL route 2 times per day As needed; 30 tablet; Refills: 0, kb Product Selection Permitted Addendum: 03/20/2022 04:10 Co-signature as Attending Physician, Pierre Werner MD I agree with the assessment and c vázquez plan of care. Signatures: Dispatcher [employer] Geni Brown FNP-C JEFF-Pierre Arias MD MD cha [place], Irene RN RN iw Dominga Krishnamurthy RN RN kb3 Corrections: (The following items were deleted from the chart) 03/16 13:51 13:50 Home Meds: Dicyclomine Oral; kb3 kb3 13:51 13:50 Home Meds: Protonix Oral; kb3 kb3 15:11 14:54 Transvaginal Study (Probe)+US.RAD.DEDE ordered. EDMS EDMS
--- NOTE | 2022-03-16 16:54 | ER ---
Nurse's Notes [facility] Name: Rod Chiu Age: 26 yrs Sex: Female : 1995 Arrival Date: 03/16/2022 Time: 13:34 Bed 16 Private MD: Diagnosis: Abdominal pain, Generalized Presentation: 03/16 13:48 Chief complaint: Patient states: Pt reports middle lower pelvic pain and middle lower kb3 back pain x3-4 months. 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 Pt reports she took all medications as directed with little relief. Coronavirus screen: Vaccine status: Patient reports receiving the 2nd dose of the covid vaccine. Client denies travel out of the [place] in the last 14 days. Ebola Screen: Patient negative for fever greater than or equal to 101.5 degrees Fahrenheit, and additional compatible Ebola Virus Disease symptoms Patient denies exposure to infectious person. Patient denies travel to an Ebola-affected area in the 21 days before illness onset. No symptoms or risks identified at this time. Initial Sepsis Screen: Does the patient meet any 2 criteria? No. Patient's initial sepsis screen is negative. Does the patient have a suspected source of infection? No. Patient's initial sepsis screen is negative. Risk Assessment: Do you want to hurt yourself or someone else? Patient reports no desire to harm self or others. Onset of symptoms is unknown. 13:48 Method Of Arrival: Ambulatory kb3 13:48 Acuity: JAIDEN 3 kb3 Triage Assessment: 13:50 General: Appears in no apparent distress. uncomfortable, Behavior is calm, cooperative. kb3 Pain: Complains of pain in suprapubic area Pain does not radiate. Pain currently is 7 out of 10 on a pain scale. GI: Reports lower abdominal pain, nausea. 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 Last tetanus immunization: not immunized. - Social history:: Smoking status: Patient denies any tobacco usage or history of. Screenin:59 Abuse screen: Denies threats or abuse. Denies injuries from another. Nutritional db screening: No deficits noted. Tuberculosis screening: No symptoms or risk factors identified. Fall Risk None identified. No fall in past 12 months (0 pts). No secondary diagnosis (0 pts). IV access (20 points). Ambulatory Aid- None/Bed Rest/Nurse Assist (0 pts). Gait- Normal/Bed Rest/Wheelchair (0 pts) Mental Status- Oriented to own ability (0 pts). Total Castañeda Fall Scale indicates No Risk (0-24 pts). Assessment: 14:00 Reassessment: Patient appears in no apparent distress at this time. No changes from db previously documented assessment. Patient and/or family updated on plan of care and expected duration. Pain level reassessed. Patient is alert, oriented x 3, equal unlabored respirations, skin warm/dry/pink. General: Appears in no apparent distress. comfortable, Behavior is calm, cooperative, appropriate for age, quiet. Pain: Complains of pain in lower bilateral abdomen Pain began 2 weeks. Neuro: No deficits noted. Level of Consciousness is awake, alert, obeys commands, Oriented to person, place, time, situation, Appropriate for age Speech is normal, Facial symmetry appears normal, Pupils are PERRLA. Cardiovascular: No deficits noted. Respiratory: No deficits noted. Airway is patent Respiratory effort is even, unlabored, Respiratory pattern is regular. GI: No deficits noted. Bowel sounds present X 4 quads. Abd is soft and non tender. : No deficits noted. No signs and/or symptoms were reported regarding the genitourinary system. EENT: No deficits noted. No signs and/or symptoms were reported regarding the EENT system. Derm: No deficits noted. No signs and/or symptoms reported regarding the dermatologic system. 16:27 Reassessment: Patient appears in no apparent distress at this time. No changes from db previously documented assessment. Patient and/or family updated on plan of care and expected duration. Pain level reassessed. Patient is alert, oriented x 3, equal unlabored respirations, skin warm/dry/pink. patient returned from CT. Vital Signs: 13:48 BP 126 / 85; Pulse 85; Resp 20; Temp 98.5; Pulse Ox 100% ; Weight 69.85 kg; Height 5 kb3 ft. 2 in. (157.48 cm); Pain 7/10; 16:28 BP 100 / 57; Pulse 72; Resp 16; Pulse Ox 96% ; Pain 5/10; db 13:48 Body Mass Index 28.17 (69.85 kg, 157.48 cm) kb3 ED Course: 13:34 Patient arrived in ED. am2 13:39 Geni Best FNP-C is [facility]. kb 13:39 Pierre Werner MD is Attending Physician. kb 13:48 Dominga Krishnamurthy, RN is Primary Nurse. kb3 13:50 Triage completed. kb3 13:50 Arm band placed on right wrist. kb3 14:49 Initial lab(s) drawn, by me, sent to lab. Urine collected: clean catch specimen, clear. tm3 14:49 Inserted saline lock: 20 gauge in right antecubital area, using aseptic technique. tm3 14:59 Patient has correct armband on for positive identification. Bed in low position. Call db light in reach. Side rails up X 1. Warm blanket given. 15:10 Transvaginal Study Probe In Process Unspecified. EDMS 16:21 Abdomen In Process Unspecified. EDMS 18:01 No provider procedures requiring assistance completed. IV discontinued, intact, iw bleeding controlled, No redness/swelling at site. Pressure dressing applied. Administered Medications: 18:01 Drug: Potassium Chloride 20 mEq Route: PO; iw Medication: 16:39 VIS not applicable for this client. db Outcome: 16:53 Discharge ordered by . kb 18:01 Discharged to home ambulatory. iw 18:01 Condition: good 18:01 Discharge instructions given to patient, Instructed on discharge instructions, follow up and referral plans. medication usage, Demonstrated understanding of instructions, follow-up care, medications, Prescriptions given X 1. 18:01 Patient left the ED. iw Signatures: Dispatcher [employer] EDMS Geni Best FNP-C FNP-Ckb Malecha, Toni tm3 Magdalena Mckinley, RN RN iw Julissa Walton am2 Dominga Krishnamurthy, RN RN kb3 Keara Rousseau RN RN db Corrections: (The following items were deleted from the chart) 13:51 13:50 Home Meds: Dicyclomine Oral; kb3 kb3 13:51 13:50 Home Meds: Protonix Oral; kb3 kb3
[2022-03-16] MEDS ORDERED: POTASSIUM CL SA 10 MEQ TAB PO ONE (17:55)
[2022-03-16 18:05] VITALS: TEMP 98.5
[2022-03-16 18:07] VITALS: BP 100/57; O2SAT 96
== END 2022-03-16 18:01 | disposition home or self-care (01) ==
LOC: ER 13:33
DX: R10.84 Generalized abdominal pain (principal)
CPT/HCPCS: 85025; 36415; 81025; 83690; 80053; 74177; 76830; 99284; Q9967; 81003; 81015

== ENCOUNTER 2022-05-06 20:01 | Emergency (ER) | payer OTHER ==
--- OUTSIDE RECORDS SUMMARY | 2022-05-06 20:05 | XMS REPORT | Continuity of Care Document ---
:1995 Author Organization [facility] t Address [address] [place] [address] Care Team Providers Name Role Phone NONE Primary Care Physician Unavailable PEDRO STEEN Attending Clinician Unavailable Porsha Carroll PA-C Attending Clinician Malinda Cardoso Attending Clinician PORSHA CARROLL Attending Clinician Unavailable Payers Payer Name Policy Type Policy Number Effective Date Expiration Date S ource Problems Condition Condition Condition Status Onset Resolution Last Treating Co mments Source Name Details Category Date Date Treatment Clinician Date Chlamydia Chlamydia Disease Active Uni vers trachomati trachomati 10-22 it y of s s 00:00: [place] infection infection 00 Medi odalys of lower of lower Branch genitourin genitourin sree sites sree sites Need for Need for Disease Active Unive rs Tdap Tdap 10-20 [place] of [place] Screening Screening Disease Active Overview: Univers for STD for STD 10-20 Formattin ity o f (sexually (sexually 00:00: [place] transmitte transmitte 00 note Me dical d disease) d disease) might be Branch different from the original. 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 Allergies, Adverse Reactions, Alerts Allergy Allergy Status Severity Reaction(s) Onset Inactive Treating Comm ents Source Name Type Date Date Clinician NO KNOWN Drug Active Univers ALLERGIE Class ity of S [facility] Social History Social Habit Start Date Stop Date Quantity Comments Source Exposure to 2022-04-21 2022-05-01 Not sure [facility]-CoV-2 00:00:00 10:11:00 [place] Medical (event) Branch Alcohol intake 2022-05-01 2022-05-01 Current University of 00:00:00 00:00:00 non-drinker of [facility] alcohol (finding) [place] Tobacco use and 2014-10-19 2014-10-19 Smokeless tobacco Un iversity of exposure 00:00:00 00:00:00 non-user [facility] Sex Assigned At [birth year] Universit y of 00:00:00 00:00:00 [facility] Smoking Status Start Date Stop Date Source Never smoked tobacco [facility] Medications Ordered Filled Start Stop Current Ordering Indication Dosage Frequency Signature Comments Components Source Medication Medication Date Date Medication? Clinician (SIG) Name Name miSOPROStoL 2021-05 Yes [id number] Take 1 Univers 200 mcg 2-09 tablet by ity of tablet 00:00: mouth the [place] night Medical before and Branch one tablet the morning of the procedure. miSOPROStoL 2021-05 Yes [id number] Take 1 Univers 200 mcg 2-09 tablet by ity of tablet 00:00: mouth the [place] night Medical before and Branch one tablet the morning of the procedure. miSOPROStoL 2021-05 Yes [id number] Take 1 Univers 200 mcg 2-09 tablet by ity of tablet 00:00: mouth the [place] night Medical before and Branch one tablet the morning of the procedure. fluconazole 2021-05- Yes [id number] 150mg Take 1 Univers 150 mg 07-0308 tablet by ity of tablet 00:00: 05:59 [place] now for 1 Medical dose. Branch medroxyPROG 2021-05 Yes 150mg 150 mg by [facility] ESTERone 07-02 Intramuscu ity o f 150 mg/mL 14:37: lar route Larry as injection 26 every 3 Medical (three) Branch months. medroxyPROG 2022-1 Yes 150mg 150 mg by Univers ESTERone 2-06 Intramuscu ity o f 150 mg/mL 14:37: lar route [place] as injection 26 every 3 Medical (three) Branch months. medroxyPROG 2022-1 Yes 150mg 150 mg by Univers ESTERone 2-06 Intramuscu ity o f 150 mg/mL 14:37: lar route [place] as injection 26 every 3 Medical (three) Branch months. medroxyPROG 2022-1 Yes 150mg 150 mg by Univers ESTERone 2-06 Intramuscu ity o f 150 mg/mL 14:37: lar route [place] as injection 26 every 3 Medical (three) Branch months. medroxyPROG 2022-1 Yes 150mg 150 mg by Univers ESTERone 2-06 Intramuscu ity o f 150 mg/mL 14:37: lar route [place] as injection 26 every 3 Medical (three) Branch months. medroxyPROG 2022-1 Yes 150mg 150 mg by Univers ESTERone 2-06 Intramuscu ity o f 150 mg/mL 14:37: lar route Larry as injection 26 every 3 Medical (three) Branch months. medroxyPROG 2022-1 Yes 150mg 150 mg by Univers ESTERone 2-06 Intramuscu ity o f 150 mg/mL 14:37: lar route [place] as injection 26 every 3 Medical (three) Branch months. Immunizations Ordered Filled Immunization Date Status Comments [facility] e Immunization Name Name TDAP (ADACEL) 2014-10-19 Completed University of VACCINE 00:00:00 [facility] TDAP (ADACEL) 2014-10-19 Completed University of VACCINE 00:00:00 [facility] TDAP (ADACEL) 2014-10-19 Completed University of VACCINE 00:00:00 [facility] Branch TDAP (ADACEL) 2014-10-19 Completed University of VACCINE 00:00:00 [facility] Branch TDAP (ADACEL) 2014-10-19 Completed University of VACCINE 00:00:00 [facility] Branch TDAP (ADACEL) 2014-10-19 Completed University of VACCINE 00:00:00 [facility] TDAP (ADACEL) 2014-10-19 Completed University of VACCINE 00:00:00 [facility] Vital Signs Vital Name Observation Time Observation Value Comments Source Systolic blood 2022-05-01 20:35:00 123 mm[Hg] Univer sity of pressure [facility] Diastolic blood 2022-05-01 20:35:00 86 mm[Hg] Unive rsity of pressure [facility] Heart rate 2022-05-01 20:35:00 66 /min [facility] Body temperature 2022-05-01 20:35:00 36.72 Kirsten [facility] Respiratory rate 2022-05-01 20:35:00 18 /min [facility] Body height 2022-05-01 20:35:00 157.5 cm [facility] Body weight 2022-05-01 20:35:00 71.759 kg [facility] BMI 2022-05-01 20:35:00 28.94 kg/m2 [facility] Procedures Procedure Date / Time Performed Performing Clinician Sourc e POCT URINALYSIS W/O 2022-05-01 00:00:[address] [facility] Encounters Start End Encounter Admission Attending Care Care Encounter Source Date/Time Date/Time Type Type Clinicians Facility Department ID 2022-05-04 2022-05-04 [id number] Univers 00:00:00 00:00:00 Porsha FULLER [id number] i ty [place] PROF[place] [id number] Fl dic[address] 2022-05-04 2022-05-04 [facility] [id number] Univers 00:00:00 00:00:00 Porsha FULLER [id number] i [place] [id number] Fl dical [address] 2022-05-04 2022-05-04 [facility] [id number] Univers 00:00:00 00:00:00 Porsha FULLER [id number] i ty [place] [id number] Fl dical NAL [address] [facility] 2022-05-02 2022-05-02 [facility]phone [facility] [id number] Univers 00:00:00 00:00:00 Malinda FULLER [id number] ity [facility] [id number] [id number] Fl dical NAL 044 [facility] 2022-05-02 2022-05-02 Case [facility] [id number] Univers 00:00:00 00:00:00 Management Porsha FULLER [id number] ity [facility] [id number] [id number] Fl dical NAL [address] [place] [address] 2022-05-01 2022-05-01 Office Chuck [facility] [id number] Univers 14:30:00 15:19:37 Visit Porsha FULLER [id number] i ty of [facility] 4[place]2.[place].2.[place] [id number] Fl dical [address] 2022-05-01 2022-05-01 Outpatient R [facility] [id number] Univers 14:30:00 15:19:37 PORSHA inder [facility] 2016-11-21 2016-11-21 Emergency E [facility] [id number] Medical 12:48:00 12:48:00 [facility] 2016-11-19 2016-11-19 Emergency E [facility] MED [id number] Medical 12:50:00 12:50:00 [facility] Results Test Description Test Time Test Comments Results Result Comments Source POCT URINALYSIS W/O SPECIFIC GRAVITY 2022-05-01 21:35:00 Test Item Value Reference Range Interpretation Comme nts POCT PH U (test code = 3254) 8 mg/dl 5-8 POCT U LEUK EST (test code = 3263) negative Negative - Negative POCT U NIT (test code = 3262) negative Negative - Negative POCT U PROT (test code = 3259) negative Negative - Negative POCT U GLU (test code = 3256) negative Negative - Negative POCT U KETONE (test code = 3258) negative Negative - Negative POCT U BLD (test code = 3257) negative Negative - Negative [facility]/O SPECIFIC [id number] 21:35:00 Test Item Value Reference Range Interpretation Comments POCT PH U (test code = 3254) 8 mg/dl 5-8 POCT U LEUK EST (test code = negative Negative - Negative 3263) POCT U NIT (test code = 3262) negative Negative - Negative POCT U PROT (test code = 3259) negative Negative - Negative POCT U GLU (test code = 3256) negative Negative - Negative POCT U KETONE (test code = 3258) negative Negative - Negative POCT U BLD (test code = 3257) negative Negative - Negative [facility] BranchPATHOLOGY [id number] 15:01:00TISSUE CONSULTATION REPORTBAPTIST BROWNFIELD REGIONAL MEDICAL CENTERDEPARTMENT OF PATHOLOGYP.O[address], [place] [id number] [facility] M.D.ROBERT L. HUTTON, M.D.CHARLES E. BURNS, M.D. ____Patient: BHARATH CHIU [id number] FRoom:Hosp#: [id number] Ordering Physician: Donald ZAYAS Rec.: 09/26/2018Date of Proc.: 09/26/2018Lab No.: [id number] Clinical History:Calculus of gallbladder with acute cholecystitis withoutobstruction.FINAL ANATOMIC DIAGNOSIS:GALLBLADDER, CHOLECYSTECTOMY:CHRONIC CHOLECYSTITIS.CHOLELITHIASIS AND FOCAL GOBLET CELL METAPLASIA WITHOUT MALIGNANCYOR DYSPLASIA.MICROSCOPIC EXAMINATION:Performed.GROSS APPEARANCE:The specimen labeled "gallbladder." Received in formalin is apurple-pink to green-tinged gallbladder 8.5 cm in length. It rangesfrom 1.5 cm at the cystic duct to about 3 cm in diameter near themid fundus. The gallbladder is sectioned releasing slightlytenacious green- yellow bile and a single ycjygwcd-ldkxqrvpplss-hgnmz stone about 1.8 cm in greatest diameters. Mucosa andmuscle wall are fairly uniformly 0.1 (or 0.2) cm in thickness. Nomucosal excrescences are seen. RS in one cassette.PATHOLOGIST: Deion Lewis Electronically Signed: 09/29/2018B-HCG QUAL (KIT)2018-09-26 10:25:00 Test Item Value Reference Range Interpretation Comments HCGQUAL (test code = NEGATIVE NEGATIVE URINE: NEGATIVE = < HCGQUAL) 20 mIU/ML; POSI TIVE= >/= 20 mIU/ML S OSCAR: NEGATIVE = < 10 mIU/ML; POSITIV E= >/= 10 mIU/ML SOURCE (test code = URINE SOURCE) HCG INTERNAL POSITIVE PASS PASS CNTRL (test code = HCGIPC) HCG LOT # (test code = 4056313 UHCGLOT) HCG EXPIRATION DATE [id number] (test code = UHCGEXP) [id number] 11:03:00 Test Item Value Reference Range Interpretation Comments SODIUM (test code = 144 MMOL/L 137-145 NA) K+ (test code = 5.3 MMOL/L 3.5-5.1 H PLEASE NOTE NEW KSERUM) REFERENCE RANGE (S) IN EFFECT EFFECTIVE 8/5/2 010 - NEW ANALYZER (V ITROS 5600) CHLORIDE (test code 105 MMOL/L 98-107 = CL) CO2 (test code = 30 MMOL/L 22-30 CO2) BUN (test code = 11 MG/DL 7-17 BUN) CREA (test code = 0.5 MG/DL 0.7-1.2 L CREA) GLUCOSE (test code 83 MG/DL 70-99 Fasting glucose = GLUCOSE) normal <100 MG/ DL- [employer] recommendation* * CALCIUM (test [...] GFR) mL/min/1.73m2 mL/min/1.73m2 is considered norm al. [id number] 11:00:00 Test Item Value Reference Range Interpretation [...] BACTERIA (test code = NEGATIVE NONE BACTERIA) [id number] 10:51:00 Test Item Value Reference Range Interpretation [...] K/UL 1.2-7.2 = NEUT) PROTHROMBIN TIME WITH [id number] 10:51:00 Test Item Value Reference Range Interpretation Comments PROTHROMBIN TIME 12.6 SECONDS 12.0-14.6 INR Usual R aung = 2 (test code = PT) to 3 for pr evention of deep vein thrombosis (DVT ) INR (test code = INR) 0.9 [id number] 10:51:00 Test Item Value Reference Range Interpretation Comments PTT (test code = 31.2 SECONDS 24.4-36.3 HEPARIN THE RAPEUTIC PTT) RANGE 57-92 SEC ONDS US [id number] 05:18:20Patient: BHARATH CHIU Date/Time05/11/2018 05:03 CSTReason for ExamAbdominalpain, right upper [...] without ultrasound evidence of acute cholecystitis.RL: [id number]: [id number] Final Dictated by: MD Quigley Tec SDictated DT/TM: 05/11/2018 5:22 amSigned by: MD Quigley Tec SSigned (Electronic Signature): 05/11/2018 5:18 amCT Angio Chest 2018-05-11 01:53:01Patient: BHARATH CHIU Date/Time05/11/2018 01:46 CSTReason for ExamChest painReportOrdering Physician: Ra CervantesClinical Indication: Chest painAdditional Clinical Information:The exam is [...] edema.3. Possible gallstone versus motion artifact.RL: 460AFC: [id number] Final Dictated by: MD Soraida, Soraida SDictated DT/TM: 05/11/2018 1:57 amSigned by: MD Soraida Soraida SSigned (Electronic Signature): 05/11/2018 1:53 amHEPATITIS C ANTIBODY [id number] 08:00:00 Test Item Value Reference Range Interpretation Comments SCRN HCV (test code NEGATIVE NEGATIVE Hepatiti s C Antibody test = SCRN HCV) is for screenin g purposes only. All react chanelle will be confirmed by additional test ing. [id number] 06:32:00 Test Item Value Reference Range Interpretation [...] K/UL 1.2-7.2 = NEUT) RPR FOR SERUM [id number] 05:32:00 Test Item Value Reference Range Interpretation Comments RPR (test code = NONREACTIVE NONREACTIVE NR = NON-R EACTIVE R = RPR) REACTIVE HIV 1/2 [id number] 12:38:00 Test Item Value Reference Range Interpretation Comments HIV 1/2 ANTIBODY NONREACTIVE NONREACTIVE This test i s used for (test code = AHIV) SCREENING purposes only. All react cindy results are pre limenary and confirmatio n results will fo llow. [id number] 12:13:00 Test Item Value Reference Range Interpretation Comments BLOOD TYPE (test code = TYPE) A Rh Positive ANTIBODY SCREEN (test code = NEGATIVE NEGATIVE SCREEN) DRUG SCREEN W/ [id number] 11:52:00 Test Item Value Reference Range Interpretation [...] PHENCYCLIDINE(PCP) NEGATIVE NEGATIVE (test code = PHENCY) [id number] 11:22:00 Test Item Value Reference Range Interpretation [...] code 8.2 K/UL 1.2-7.2 H = NEUT) [id number] 11:21:00 Test Item Value Reference Range Interpretation [...] BACTERIA (test code = TRACE NONE BACTERIA) 45941& PELVIS W/O [id number] 13:58:51CT ABDOMEN AND CT PELVIS WITHOUT IV [...]
[2022-05-06 20:40] LABS: Urine Blood Negative (Negative); Urine Glucose Negative (Negative); Urine Protein Negative (Negative); Urine Specific Gravity >=1.030 (1.005-1.030)
[2022-05-06 20:48] LABS: Urine Specific Gravity/Preg >1.030 (1.005-1.030)
[2022-05-06] MEDS ORDERED: dexAMETHasone 10 MG/ML VIAL ONE (21:02)
[2022-05-06] MEDS ORDERED: TRAMADOL HCL 50 MG TAB ONE (21:02)
[2022-05-06] MEDS ORDERED: KETOROLAC 30 MG/ML INJ ONE (21:03)
[2022-05-06 21:42] LABS: Urine Mucus Slight /HPF (None Seen); Urine RBC <5 /HPF (None Seen)
--- NOTE | 2022-05-06 21:56 | EDPHYS ---
Physician Documentation [facility] Name: Rod Chiu Age: 26 yrs Sex: Female : 1995 Arrival Date: 05/06/2022 Time: 20:03 Bed 10 Private MD: ED Physician Fabio Durant HPI: 05/06 20:33 This 26 yrs old Female presents to ER via Ambulatory with complaints of Back Pain, Leg rn Pain, Urinary Frequency. 20:33 The patient presents with pain that is chronic. The symptoms are located in the low rn back. Onset: The symptoms/episode began/occurred 2 month(s) ago. The pain radiates to the right leg. Associated signs and symptoms: Pertinent negatives: abdominal pain, chest pain, fever, hematuria, incontinence, urinary retention, weakness. Modifying factors: The patient symptoms are alleviated by nothing, the patient symptoms are aggravated by bending, lifting, movement. Severity of symptoms: At their worst the symptoms were moderate, in the emergency department the symptoms are unchanged. The patient has experienced similar episodes in the past. The patient has been recently seen by a physician:. Pt reports chronic back pain with lifting/bending, has been diagnosed with herniated disc, unable to get MRI. Here tonight because pain worsened with radiation down right leg now. 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 Also reports increased urinary frequency and thinks might have a urine infection. . 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 Last tetanus immunization: up to date. - Social history:: Smoking status: Patient denies any tobacco usage or history of. - Family history:: not pertinent. - Hospitalizations: : No recent hospitalization is reported. ROS: 20:33 Constitutional: Negative for fever, chills, and weight loss, Eyes: Negative for injury, rn pain, redness, and discharge, Neck: Negative for injury, pain, and swelling, Cardiovascular: Negative for chest pain, palpitations, and edema, Respiratory: Negative for shortness of breath, cough, wheezing, and pleuritic chest pain, Abdomen/GI: Negative for abdominal pain, nausea, vomiting, diarrhea, and constipation, Back: Negative for injury : + urinary frequency MS/Extremity: Negative for injury and deformity, Skin: Negative for injury, rash, and discoloration, Neuro: Negative for headache, weakness, numbness, tingling, and seizure. Exam: 20:33 Constitutional: This is a well developed, well nourished patient who is awake, alert, rn appears uncomfortable Head/Face: Normocephalic, atraumatic. Eyes: Periorbital areas with no swelling, redness, or edema. Cardiovascular: Regular rate and rhythm. No pulse deficits. Respiratory: No increased work of breathing, no retractions or nasal flaring. Abdomen/GI: Soft, non-tender Back: No spinal tenderness. No costovertebral tenderness. Skin: Warm, dry MS/ Extremity: Pulses equal, no cyanosis. Neurovascular intact. + pain with right and left leg raise Neuro: Awake and alert, GCS 15, oriented to person, place, time, and situation. Cranial nerves II-XII grossly intact. Motor strength 5/5 in all extremities. Sensory grossly intact. Vital Signs: 20:00 BP 124 / 74; Pulse 80; Resp 16; Pulse Ox 99% on R/A; Pain 5/10; hb 20:12 BP 125 / 80; Pulse 84; Resp 20; Temp 98.2; Pulse Ox 100% ; Weight 72.12 kg; Height 5 kb3 ft. 2 in. (157.48 cm); Pain 10/10; 20:12 Body Mass Index 29.08 (72.12 kg, 157.48 cm) kb3 MDM: 20:06 Patient medically screened. rn 21:54 Differential diagnosis: arthritis, chronic back pain, sprain, radiculopathy, bulging rn disc, herniated disc. Data reviewed: vital signs, nurses notes, lab test result(s), and as a result, I will discharge patient. Counseling: I had a detailed discussion with the patient and/or guardian regarding: the historical points, exam findings, and any diagnostic results supporting the discharge/admit diagnosis, lab results, the need for outpatient follow up, to return to the emergency department if symptoms worsen or persist or if there are any questions or concerns that arise at home. Response to treatment: the patient's symptoms have mildly improved after treatment, and as a result, I will discharge patient. Special discussion: I discussed with the patient/guardian in detail that at this point there is no indication for admission to the hospital. It is understood, however, that if the symptoms persist or worsen the patient needs to return immediately for re-evaluation. Based on the history and exam findings, there is no indication for further emergent testing or inpatient evaluation. I discussed with the patient/guardian the need to see the back specialist for further evaluation of the symptoms. ED course: Urine neg for preg/UTI. Known disc problem. Will treat as radiculopathy and recommend lumbar support belt and back specialist f/u. . 05/06 20:21 Order name: Urine Microscopic Only; Complete Time: 21:54 rn 05/06 20:40 Order name: Urine Dipstick-Ancillary; Complete Time: 20:57 EDMS 05/06 20:43 Order name: Urine --Ancillary (enter results); Complete Time: 20:57 mw2 05/06 20:21 Order name: Urine Dipstick-Ancillary (obtain specimen); Complete Time: 20:43 rn 05/06 20:21 Order name: Urine Test (obtain specimen); Complete Time: 20:43 rn Administered Medications: 21:11 Drug: Decadron (dexamethasone) 10 mg Route: IM; Site: right deltoid; hb 21:40 Follow up: Response: No adverse reaction hb 21:11 Drug: Ketorolac 30 mg Route: IM; Site: left deltoid; hb 21:40 Follow up: Response: No adverse reaction hb 21:11 Drug: traMADol 50 mg Route: PO; hb 21:40 Follow up: Response: No adverse reaction hb 21:26 CANCELLED (Duplicate Order): Flagyl (metroNIDAZOLE) 500 mg PO once rn 21:26 CANCELLED (Duplicate Order): DiFLUcan (fluconazole) 200 mg PO once rn Disposition Summary: 05/06/22 21:55 Discharge Ordered Location: Home rn Problem: an ongoing problem rn Symptoms: have improved rn Condition: Stable rn Diagnosis - Radiculopathy, lumbar region rn Followup: rn - With: Private Physician - When: As needed - Reason: Recheck today's complaints, Re-evaluation by your physician Discharge Instructions: - Discharge Summary Sheet rn - Lumbosacral Radiculopathy rn - Pinched Nerve rn - Back Exercises rn Forms: - Medication Reconciliation Form rn - Thank You Letter rn - Antibiotic state attorney - Prescription Opioid Use rn Prescriptions: - Cyclobenzaprine 10 mg Oral Tablet - take 1 tablet by ORAL route every 8 hours As needed; 15 tablet; Refills: 0, rn Product Selection Permitted - Tramadol 50 mg Oral Tablet - take 1 tablet by ORAL route every 8 hours as needed; 12 tablet; Refills: 0, rn Product Selection Permitted - Medrol (Varghese) 4 mg Oral Tablets, Dose Pack - take 1 tablet by ORAL route as directed - follow package instructions; 1 rn packet; Refills: 0, Product Selection Permitted Signatures: Dispatcher [employer] EDFabio Shaffer MD MD rn Baxter, Heather, RN RN hb Bradberry, Kelly RN RN kb3 Corrections: (The following items were deleted from the chart) 20:22 20:20 Home Meds: Dicyclomine Oral; kb3 kb3 20:22 20:20 Home Meds: Protonix Oral; kb3 kb3 21:26 21:19 Flagyl (metroNIDAZOLE) 500 mg PO once ordered. rn rn 21: 21:19 DiFLUcan (fluconazole) 200 mg PO once ordered. rn rn
--- NOTE | 2022-05-06 21:56 | ER ---
Nurse's Notes [facility] Name: Rod Chiu Age: 26 yrs Sex: Female : 1995 Arrival Date: 05/06/2022 Time: 20:03 Bed 10 Private MD: Diagnosis: Radiculopathy, lumbar region Presentation: 05/06 20:12 Chief complaint: Patient states: bilateral lower back pain x2 months that has been kb3 worse since 04/28 and began radiating down left leg x2 hours. Pt reports urinary frequency x3 days without pain or burning. Coronavirus screen: Vaccine status: Patient reports receiving the 2nd dose of the covid vaccine. Client denies travel out of the [place] in the last 14 days. Ebola Screen: Patient negative for fever greater than or equal to 101.5 degrees Fahrenheit, and additional compatible Ebola Virus Disease symptoms Patient denies exposure to infectious person. Patient denies travel to an Ebola-affected area in the 21 days before illness onset. Initial Sepsis Screen: Does the patient meet any 2 criteria? No. Patient's initial sepsis screen is negative. Does the patient have a suspected source of infection? No. Patient's initial sepsis screen is negative. Risk Assessment: Do you want to hurt yourself or someone else? Patient reports no desire to harm self or others. Onset of symptoms was April 28, 2022. 20:12 Method Of Arrival: Ambulatory kb3 20:12 Acuity: JAIDEN 3 kb3 Triage Assessment: 20:20 General: Appears in no apparent distress. Behavior is calm, cooperative. Pain: kb3 Complains of pain in left low back and right low back Pain radiates to left hamstring Pain currently is 10 out of 10 on a pain scale. Quality of pain is described as burning. : Reports urgency, urinary frequency. 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 Last tetanus immunization: up to date. - Social history:: Smoking status: Patient denies any tobacco usage or history of. - Family history:: not pertinent. - Hospitalizations: : No recent hospitalization is reported. Screenin:51 Abuse screen: Denies threats or abuse. Denies injuries from another. Nutritional hb screening: No deficits noted. Tuberculosis screening: No symptoms or risk factors identified. Fall Risk Total Castañeda Fall Scale indicates No Risk (0-24 pts). Assessment: 21:10 General: Appears in no apparent distress. Behavior is calm, cooperative. Pain: Pain hb currently is 10 out of 10 on a pain scale. Neuro: Level of Consciousness is awake, alert, obeys commands, Oriented to person, place, time, situation. Cardiovascular: Patient's skin is warm and dry. Respiratory: Respiratory effort is even, unlabored, Respiratory pattern is regular, symmetrical. GI: No signs and/or symptoms were reported involving the gastrointestinal system. : No signs and/or symptoms were reported regarding the genitourinary system. EENT: No signs and/or symptoms were reported regarding the EENT system. Derm: Skin is pink, warm \T\ dry. Musculoskeletal: Reports right low back pain. 22:00 Reassessment: Patient appears in no apparent distress at this time. Patient and/or hb family updated on plan of care and expected duration. Pain level reassessed. Patient is alert, oriented x 3, equal unlabored respirations, skin warm/dry/pink. Patient states symptoms have improved. Vital Signs: 20:00 BP 124 / 74; Pulse 80; Resp 16; Pulse Ox 99% on R/A; Pain 5/10; hb 20:12 BP 125 / 80; Pulse 84; Resp 20; Temp 98.2; Pulse Ox 100% ; Weight 72.12 kg; Height 5 kb3 ft. 2 in. (157.48 cm); Pain 10/10; 20:12 Body Mass Index 29.08 (72.12 kg, 157.48 cm) kb3 ED Course: 20:03 Patient arrived in ED. as 20:06 Fabio Durant MD is Attending Physician. rn 20:20 Triage completed. kb3 20:20 Arm band placed on left wrist. kb3 20:46 Urine --Ancillary (enter results) Sent. kb3 21:01 Humphreys, Carla, RN is Primary Nurse. hb 21:32 Patient has correct armband on for positive identification. hb 22:00 No provider procedures requiring assistance completed. Patient did not have IV access hb during this emergency room visit. 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 hb Outcome: 21:55 Discharge ordered by . rn 22:03 Discharged to home ambulatory. hb 22:03 Condition: stable 22:03 Discharge instructions given to patient, Instructed on discharge instructions, follow up and referral plans. medication usage, Demonstrated understanding of instructions, follow-up care, medications, Prescriptions given X 3. 22:04 Patient left the ED. hb Signatures: Gali Serrano Roman, MD MD rn Baxter, Heather, RN RN Dominga Krishnamurthy, JORDAN RN kb3 Corrections: (The following items were deleted from the chart) 20:22 20:20 Home Meds: Dicyclomine Oral; kb3 kb3 20:22 20:20 Home Meds: Protonix Oral; kb3 kb3
[2022-05-06 22:08] VITALS: BP 125/80; TEMP 98.2; O2SAT 100
== END 2022-05-06 22:04 | disposition home or self-care (01) ==
LOC: ER 20:01
DX: M54.16 Radiculopathy, lumbar region (principal)
CPT/HCPCS: 81025; 96372; 99283; J1100; 81003; 81015

== ENCOUNTER 2023-02-07 08:18 | Emergency (ER) | payer SELFPAY ==
--- OUTSIDE RECORDS SUMMARY | 2023-02-07 08:21 | XMS REPORT | Continuity of Care Document ---
:1995 Author Organization [facility] t Address [address] [place] [address] [address] [place] [address] Care Team Providers Name Role Phone NONE Primary Care Physician Unavailable PEDRO STEEN Attending Clinician Unavailable Pedro Steen MD Attending Clinician Doctor Unassigned, [place] Attending Clinician Unavailable Porsha Woods PA-C Attending Clinician Malinda Cardoso Attending Clinician PORSHA WOODS Attending Clinician Unavailable Payers Payer Name Policy [...] different from the original. ICD10 Diagnosis Term Carbon Electrodes Supervisor Utility Presence Presence Disease Active Unive rs of of 10-20 ity of intrauteri [place]uter[place] 00 Medical contracept contracept Br anch cindy device cindy device Overweight Overweight Disease Active Overview : Univers 10-20 Formattin ity of 00:00: g of this [place] 00 note Medical might be Branch different from the original. ICD10 Diagnosis Term Carbon Electrodes Supervisor Utility Allergies, Adverse Reactions, Alerts Allergy Allergy Status Severity Reaction(s) Onset Inactive Treating Comm ents Source Name Type Date Date Clinician NO KNOWN Drug Active [facility] ALLERGIE Class ity of S [facility] Social History Social Habit Start Date Stop Date Quantity Comments Source Exposure to 2022-07-22 2022-08-01 Not sure [facility]-CoV-2 00:00:00 13:47:00 [facility] (event) Branch Alcohol intake 2022-08-01 2022-08-01 Current [facility] 00:00:00 00:00:00 non-drinker of [facility] alcohol (finding) Branch Tobacco use and 2014-10-19 2014-10-19 Smokeless tobacco Un iversity of exposure 00:00:00 00:00:00 non-user [facility] Sex Assigned At [birth year] Universit y of 00:00:00 00:00:00 [facility] Smoking Status Start Date Stop Date Source Never smoked tobacco [facility] Medications Ordered Filled Start Stop Current Ordering Indication Dosage Frequency Signature Comments Components Source Medication Medication Date Date Medication? Clinician (SIG) Name Name levonorgest 2022- No [id number] 1{devic Univers reL 06-21 e} ity of (MIRENA) 15:45: 15:17 [place] IUD 1 00 :00 Credit Director Branch levonorgest 2022- No [id number] 1{devi 1 Device, Univers reL 06-21 e} Intrauteri ity of (MIRENA) 15:45: 15:17 ne, ONCE, [place] as IUD 1 00 :00 1 dose, On Credit Director Stella Branch 06/21/22 at 0945, Routine levonorgest 2022- No [id number] 1{devic Univers reL 06-21 e} ity of (MIRENA) 15:45: 15:17 [place] IUD 1 00 :00 Credit Director Branch levonorgest 2022- No [id number] 1{devi 1 Device, Univers reL 06-21 e} Intrauteri ity of (MIRENA) 15:45: 15:17 ne, ONCE, [place] as IUD 1 00 :00 1 dose, On Credit Director Stella Branch 06/21/22 at 0945, Routine medroxyPROG 2022-2022- No 150mg 150 mg by Univers ESTERone 06-21 Intramuscu ity of 150 mg/mL 09:14: 00:00 lar route [place] injection 42 :00 every 3 Medical (three) Branch months. medroxyPROG 2022-0 2022- No 150mg 150 mg by Univers ESTERone 06-21 Intramuscu ity of 150 mg/mL 09:14: 00:00 lar route [place] injection 42 :00 every 3 Medical (three) Branch months. miSOPROStoL Yes Take one Un luciana 200 mcg 06-20 table the ity of tablet 00:00: night [place] 00 before the Medical procedure Branch and one tablet the morning of procedure miSOPROStoL 2022-0 2022- No Take one U nivers 200 mcg 06-20 table the ity of tablet 00:00: 00:00 night [place] 00 :00 before the Medical procedure Branch and one tablet the morning of procedure miSOPROStoL 2022-0 2022- No Take one U nivers 200 mcg 06-20 table the ity of tablet 00:00: 00:00 night [place] 00 :00 before the Medical procedure Branch and one tablet the morning of procedure medroxyPROG 2021-05 Yes 150mg 150 mg by Univers ESTERone 07-17 Intramuscu ity o f 150 mg/mL 14:47: lar route [place] as injection 22 every 3 Medical (three) Branch months. medroxyPROG 2021- Yes 150mg 150 mg by Univers ESTERone 21 Intramuscu ity o f 150 mg/mL 14:47: lar route [place] as injection 22 every 3 Medical (three) Branch months. medroxyPROG 2021-1 Yes 150mg 150 mg by Univers ESTERone -21 Intramuscu ity o f 150 mg/mL 14:47: lar route [place] as injection 22 every 3 Medical (three) Branch months. miSOPROStoL 2021- Yes [id number] Take 1 Univers 200 mcg 2-09 tablet by ity of tablet 00:00: mouth the [place] 00 night Medical before and Branch one tablet the morning of the procedure. miSOPROStoL 2021-05 Yes [id number] Take 1 Univers 200 mcg 2-09 tablet by ity of tablet 00:00: mouth the [place] 00 night Medical before and Branch one tablet the morning of the procedure. miSOPROStoL 2021-05 Yes [id number] Take 1 Univers 200 mcg 2-09 tablet by ity of tablet 00:00: mouth the [place] night Medical before and Branch one tablet the morning of the procedure. miSOPROStoL 2021-05- No [id number] Take 1 Univers 200 mcg 2- 12- tablet by ity of tablet 00:00: 00:00 mouth the [place] 00 :00 night Medical before and Branch one tablet the morning of the procedure. miSOPROStoL 2021-05- No [id number] Take 1 Univers 200 mcg 2-02 05- tablet by ity of tablet 00:00: 00:00 mouth the [place] 00 :00 night Medical before and Branch one tablet the morning of the procedure. fluconazole 2021-05- No [id number] 150mg Take 1 Univers 150 mg 07-03-08 tablet by ity of tablet 00:00: 05:59 [place] 00 :[place] now for 1 Medical dose. Branch medroxyPROG 2021-05 Yes 150mg 150 mg by Univers ESTERone 2-06 Intramuscu ity o f 150 mg/mL 14:37: lar route [place] as injection 26 every 3 Medical (three) Branch months. medroxyPROG 2021-05 Yes 150mg 150 mg by Univers ESTERone 2-06 Intramuscu ity o f 150 mg/mL 14:37: lar route [place] as injection 26 every 3 Medical (three) Branch months. medroxyPROG 2021- Yes 150mg 150 mg by Univers ESTERone 2-06 Intramuscu ity o f 150 mg/mL 14:37: lar route [place] as injection 26 every 3 Medical (three) Branch months. medroxyPROG 2021-05 Yes 150mg 150 mg by Univers ESTERone [...] Immunizations Ordered Filled Immunization Date Status Comments [facility] e Immunization Name Name TDAP (ADACEL) 2014-10-19 Completed University of VACCINE 00:00:00 [place] [facility] TDAP (ADACEL) 2014-10-19 Completed University of VACCINE 00:00:00 [place] [facility] TDAP (ADACEL) 2014-10-19 Completed University of VACCINE 00:00:00 [place] [facility] TDAP (ADACEL) 2014-10-19 Completed University of VACCINE 00:00:00 [place] [facility] TDAP (ADACEL) 2014-10-19 Completed University of VACCINE 00:00:00 [place] [facility] TDAP (ADACEL) 2014-10-19 Completed University of VACCINE 00:00:00 [place] [facility] TDAP (ADACEL) 2014-10-19 Completed University of VACCINE 00:00:00 [place] [facility] TDAP (ADACEL) 2014-10-19 Completed University of VACCINE 00:00:00 [place] [facility] TDAP (ADACEL) 2014-10-19 Completed University of VACCINE 00:00:00 [place] [facility] TDAP (ADACEL) 2014-10-19 Completed University of VACCINE 00:00:00 [place] [facility] TDAP (ADACEL) 2014-10-19 Completed University of VACCINE 00:00:00 [place] [facility] TDAP (ADACEL) 2014-10-19 Completed University of VACCINE 00:00:00 [place] [facility] TDAP (ADACEL) 2014-10-19 Completed University of VACCINE 00:00:00 [place] [facility] TDAP (ADACEL) 2014-10-19 Completed University of VACCINE 00:00:00 [place] [facility] TDAP (ADACEL) 2014-10-19 Completed University of VACCINE 00:00:00 [place] [facility] TDAP (ADACEL) 2014-10-19 Completed University [facility] 00:00:00 [place] [facility] Vital Signs Vital Name Observation Time Observation Value Comments Source Systolic blood 2022-08-01 20:13:00 120 mm[Hg] Univer sity of pressure [place] [facility] Diastolic blood 2022-08-01 20:13:00 68 mm[Hg] Unive rsity of pressure [place] [facility] Heart rate 2022-08-01 20:13:00 82 /min Universi ty of [place] [facility] Body temperature 2022-08-01 20:13:00 36.67 Kirsten Univ ersity of [place] [facility] Body height 2022-08-01 20:13:00 157.5 cm Universi ty of [place] [facility] Body weight 2022-08-01 20:13:00 74.118 kg Universi ty of [place] [facility] BMI 2022-08-01 20:13:00 29.89 kg/m2 Universi ty of [place] [facility] Systolic blood 2022-06-21 15:02:00 116 mm[Hg] Univer sity of pressure [place] [facility] Diastolic blood 2022-06-21 15:02:00 72 mm[Hg] Unive rsity of pressure [place] [facility] Heart rate 2022-06-21 15:02:00 77 /min Universi ty of [place] [facility] Body temperature 2022-06-21 15:02:00 36.78 Kirsten Univ ersity of [place] [facility] Body height 2022-06-21 15:02:00 157.5 cm Universi ty of [place] [facility] Body weight 2022-06-21 15:02:00 73.301 kg Universi ty of [place] [facility] BMI 2022-06-21 15:02:00 29.56 kg/m2 Universi ty of [place] [facility] Systolic blood 2022-05-16 19:23:00 112 mm[Hg] Univer sity of pressure [place] [facility] Diastolic blood 2022-05-16 19:23:00 77 mm[Hg] Unive rsity of pressure [place] [facility] Heart rate 2022-05-16 19:23:00 74 /min Universi ty of [place] [facility] Body temperature 2022-05-16 19:23:00 36.72 Kirsten Univ ersity of [place] [facility] Respiratory rate 2022-05-16 19:23:00 18 /min Univ ersity of [place] [facility] Body height 2022-05-16 19:23:00 157.5 cm Universi ty of [place] [facility] [place] Body weight 2022-05-16 19:23:00 70.761 kg Universi of [facility] BMI 2022-05-16 19:23:00 28.53 kg/m2 Universi [facility] Systolic blood 2022-05-01 20:35:00 123 mm[Hg] Univer sity of [facility] Diastolic blood 2022-05-01 20:35:00 86 mm[Hg] [facility] Heart rate 2022-05-01 20:35:00 66 /min Universi ty of [facility] Body temperature 2022-05-01 20:35:00 36.72 Kirsten [facility] Res[facility] rate 2022-05-01 20:35:00 18 /min [facility] Body height 2022-05-01 20:35:00 157.5 cm Universi ty [facility] Body weight 2022-05-01 20:35:00 71.759 kg Universi ty [facility] Branch BMI 2022-05-01 20:35:00 28.94 kg/m2 Universi [facility] Procedures Procedure Date / Time Performed Performing Clinician Sour e DISCLOSURE AND 2022-06-21 06:01:00 Doctor Unassigned, No [facility] CONSENT, MEDICAL AND Name Medical Bra [facility] SURGICAL PROCEDURES POCT TEST 2022-06-21 00:00:[address] [facility] POCT TEST 2022-05-16 00:00:[address] [facility] POCT URINALYSIS W/O 2022-05-01 00:00:00 Porsha Woods [facility] SPECIFIC GRAVITY [facility] Encounters Start End Encounter Admission Attending Care Care Encounter Source Date/Time Date/Time Type Type Clinicians Facility Department ID 2022-11-14 2022-11-14 Outpatient [facility] [id number] Darci 13:57:16 13:57:16 [id number] Harry 2022-08-01 2022-08-01 Office Pedro Steen [facility] [id number] Univers 14:30:00 15:00:00 Visit Cam [place] [id number] i ty [place] PROF[place] [id number] [address] 2022-08-01 2022-08-01 Outpatient R PEDRO STEEN [facility] [id number] Univers 14:30:00 14:30:00 ity of [facility] 2022-06-28 2022-06-28 Telephone Celsa [facility] [id number] Univers 00:00:00 00:00:00 Cam [place] [id number] i ty of [place] [id number] [address] 2022-06-21 2022-06-21 Office Celsa [facility] [id number] Univers 09:00:00 09:15:55 Visit Cam [place] [id number] i ty [facility] 4.2.7.2.[place] [id number] [address] 2022-06-21 2022-06-21 Outpatient R CELSA PEDRO [facility] [id number] Univers 09:00:00 09:15:55 ity of [facility] 2022-06-21 2022-06-21 Orders Doctor BIB [id number] Univers 00:00:00 00:00:00 Only Unassigned, IRAJ [id number] ity of [place] [facility] 4.2.7.2.686 [place] as [id number] [address] 2022-06-20 2022-06-20 Telephone Celsa [facility] [id number] Univers 00:00:00 00:00:00 Cam [place] [id number] i ty of [place] [id number] [address] 2022-05-16 2022-05-16 Outpatient R CELSA [facility] [id number] Univers 13:15:00 13:59:39 ity of [facility] 2022-05-16 2022-05-16 Office Pedro Steen [facility] [id number] Univers 13:15:00 13:59:39 Visit Brandon F[place] [id number] i [place] [id number] Ga dical NAL 134 [facility] 2022-05-04 2022-05-04 Telephone [facility] [id number] Univers 00:00:00 00:00:00 Porsha FULL[place] [id number] i ty of [place] [id number] Ga dical NAL [address] [place] [address] 2022-05-04 2022-05-04 [facility]phone [facility] [id number] Univers 00:00:00 00:00:00 Porsha FULLER 350.1.13.10 i ty of [place] [id number] Ga dical NAL 134 [facility] 2022-05-04 2022-05-04 Refill [facility] [id number] Univers 00:00:00 00:00:00 Porsha FULLER 350.1.13.10 i ty of [place] 4[place]2.[place].2.[place] [id number] Ga dical NAL 134 [facility] 2022-05-02 2022-05-02 Telephone [facility] [id number] Univers 00:00:00 00:00:00 Malinda FULLER 350.1.13.10 ity of [place] [id number] Ga dical NAL 044 [facility] 2022-05-02 2022-05-02 Case [facility] [id number] Univers 00:00:00 00:00:00 Management Porsha FULLER [id number] ity of [facility] 4.2.7.2.[place] [id number] Ga dical NAL 134 [facility] 2022-05-01 2022-05-01 Office Chuck [facility] [id number] Univers 14:30:00 15:19:37 Visit Porsha [place]ULL[place] 350.1.13.10 i ty of [place]2.[place] [id number] Ga dicky NAL [address] [place] [address] 2022-05-01 2022-05-01 Outpatient R CHUCK [facility] [id number] [facility] 14:30:00 15:19:37 PORSHA loving [facility] 2016-11-21 2016-11-21 Emergency E [facility] [id number] Medical 12:48:00 12:48:00 [facility] 2016-11-19 2016-11-19 Emergency E [facility] MED [id number] Medical 12:50:00 12:50:00 [facility] Results Test Description Test Time Test Comments Results Result Comments Source POCT TEST 2022-06-21 14:58:00 Test Item Value Reference Range Interpretation Comme nts POCT PREG (test code = 1605) Negative On board controls acceptable with C Line (test code = 3574) Yes POCT PREG LOT # (test code = 3575) POCT PREG TEST DATE (test code = 3576) [facility] [id number] 14:58:00 Test Item Value Reference Range Interpretation Comments POCT PREG (test code = 1605) Negative On board controls acceptable with C Yes Line (test code = 3574) POCT PREG LOT # (test code = 3575) POCT PREG TEST DATE (test code = 3576) [facility] [id number] 19:39:00 Test Item Value Reference Range Interpretation Comments POCT PREG (test code = 1605) Negative On board controls acceptable with C Yes Line (test code = 3574) POCT PREG LOT # (test code = 3575) POCT PREG TEST DATE (test code = 3576) [facility] [id number] 19:39:00 Test Item Value Reference Range Interpretation Comments POCT PREG (test code = 1605) Negative On board controls acceptable with C Yes Line (test code = 3574) POCT PREG LOT # (test code = 3575) POCT PREG TEST DATE (test code = 3576) [facility] URINALYSIS W/O SPECIFIC [id number] 21:35:00 Test Item Value Reference Range Interpretation [...] [facility] W/O SPECIFIC [id number] 21:35:00 Test Item Value Reference Range Interpretation [...] code = 3257) negative Negative - Negative [facility] BranchPATHOLOGY [id number] 15:01:00TISSUE CONSULTATION REPORTBAPTHUNT REGIONAL MEDICAL CENTER AT GREENVILLEDEPARTMENT OF PATHOLOGYP.[address] [place] [address] [id number] ROBFLORENTINO ZALDIVAR M.D.EMILEE SINGLETARY M.D.CHARLES E. BURNS, M.D. ____Patient: BHARATH FLEMING 1995 23 FRoom:Hosp#: [id number] Ordering Physician: Donald ZAYAS Rec.: 09/26/2018Date of Proc.: 09/26/2018Lab No.: [id number] Clinical History:Calculus of gallbladder with acute cholecystitis [...] slightlytenacious green- yellow bile and a single xkdphkrv-flxtxnvpsdlk-zmayo stone about 1.8 cm in greatest diameters. [...] HCGIPC) HCG LOT # (test code = 6473264 UHCGLOT) HCG EXPIRATION DATE [id number] (test code = UHCGEXP) [id number] 11:03:00 Test Item Value Reference Range Interpretation [...] glucose = GLUCOSE) normal <100 MG/ DL- [employer] recommendation* * CALCIUM (test [...] GFR) mL/min/1.73m2 mL/min/1.73m2 is considered norm al. [id number] 11:00:00 Test Item Value Reference Range Interpretation [...] BACTERIA (test code = NEGATIVE NONE BACTERIA) [id number] 10:51:00 Test Item Value Reference Range Interpretation [...] K/UL 1.2-7.2 = NEUT) PROTHROMBIN TIME WITH [id number] 10:51:00 Test Item Value Reference Range Interpretation Comments PROTHROMBIN TIME 12.6 SECONDS 12.0-14.6 INR Usual R aung = 2 (test code = PT) to 3 for pr evention of deep vein thrombosis (DVT ) INR (test code = INR) 0.9 [id number] 10:51:00 Test Item Value Reference Range Interpretation Comments PTT (test code = 31.2 SECONDS 24.4-36.3 HEPARIN THE RAPEUTIC PTT) RANGE 57-92 SEC ONDS US [id number] 05:18:20Patient: BHARATH FLEMING Date/Time05/11/2018 05:03 CSTReason for [...] sludgeball without ultrasound evidence of acute cholecystitis.RL: 460AFC: 42527 Final Dictated by: MD Soraida, Soraida SDictated [...] edema.3. Possible gallstone versus motion artifact.RL: 460AFC: 40033 Final Dictated by: MD Soraida, Soraida SDictated DT/TM: 05/11/2018 1:57 amSigned by: MD Soraida, Soraida SSigned (Electronic Signature): 05/11/2018 1:53 amHEPATITIS C ANTIBODY [id number] 08:00:00 Test Item Value Reference Range Interpretation Comments SCRN HCV (test code NEGATIVE NEGATIVE Hepatiti s C Antibody test = SCRN HCV) is for screenin g purposes only. All react chanelle will be confirmed by additional test ing. [id number] 06:32:00 Test Item Value Reference Range Interpretation [...] K/UL 1.2-7.2 = NEUT) RPR FOR SERUM [id number] 05:32:00 Test Item Value Reference Range Interpretation Comments RPR (test code = NONREACTIVE NONREACTIVE NR = NON-R EACTIVE R = RPR) REACTIVE HIV 1/2 [id number] 12:38:00 Test Item Value Reference Range Interpretation Comments HIV 1/2 ANTIBODY NONREACTIVE NONREACTIVE This test i s used for (test code = AHIV) SCREENING purposes only. All react cindy results are pre limenary and confirmatio n results will fo llow. [id number] 12:13:00 Test Item Value Reference Range Interpretation Comments BLOOD TYPE (test code = TYPE) A Rh Positive ANTIBODY SCREEN (test code = NEGATIVE NEGATIVE SCREEN) DRUG SCREEN W/ [id number] 11:52:00 Test Item Value Reference Range Interpretation [...] PHENCYCLIDINE(PCP) NEGATIVE NEGATIVE (test code = PHENCY) [id number] 11:22:00 Test Item Value Reference Range Interpretation [...] code 8.2 K/UL 1.2-7.2 H = NEUT) [id number] 11:21:00 Test Item Value Reference Range Interpretation [...] BACTERIA (test code = TRACE NONE BACTERIA) 07375& PELVIS W/O [id number] 13:58:51CT ABDOMEN AND CT PELVIS WITHOUT IV [...] in the emergency room at 1405 hours. Notes Date/Time Note Provider Source 2018-09-26 ELPIDIO ZAYAS 12:55:05-00:00 [place] [address] Patient Name: BHARATH FLEMING Patient#: [id number] Admission Date: 09/26/2018 Date of : 1995 Age/Gender: 23/F HSSV/RM/BED: DSE/ Admitting Phys: Jaime Zayas MD OPERATIVE NOTE DATE OF SURGERY: 09/26/2018 SURGEON: Jaime Zayas MD MANAGER CONSUMER INSIGHTS: None. PREOPERATIVE DIAGNOSIS Symptomatic cholelithiasis. POSTOPERATIVE DIAGNOSIS Symptomatic cholelithiasis. PROCEDURES PERFORMED Laparoscopic cholecystectomy with intraoperative cholangiogram using ICG fluorescence. ANESTHESIA General endotracheal. ESTIMATED BLOOD LOSS Minimal. SPECIMENS Gallbladder. DETAILS OF PROCEDURE The patient was brought back into the operating room and was placed supine on the operating table. After general endotracheal anesthesia was induced, the patient then was prepped and draped in the usual sterile fashion. Appropriate time-out was then called and everybody was in ag reement. It is important to note that prior to the patient coming into the o perating room, 5 cc of indocyanine green were given in order to allow f or this to circulate intravascularly. A 5 mm incision was then made i n the right subcostal area and using an Optiview trocar, access was gained into the abdominal cavity. This was done uneventfully. The abdomen was then insuffla charles to 15 mmHg. The laparoscope was then introduced and a sweep of t he abdominal cavity did not reveal any injuries during the entrance. Two [facility] er 5 mm ports were then placed under direct vision, one in the right flank, the other in the supraumbilical area. A 12 mm port was then placed in the subxip hoid position. The patient was then positioned in reverse Trendelenburg and rig ht side up. The gallbladder was identified and cranially retracted. The hepatodu odenal ligament was exposed. The peritoneum was dissected off both medially a nd laterally. The cystic duct and cystic artery entrance into the gallbladder were clearly identified. An intraoperative cholangiogram using indocyanine g reen was then performed. This allowed for clear visualization of the c ommon bile duct, as well as the cystic duct junction. There was no obvious interruption of dye in the common bile duct. The cystic duct and cystic artery were the n circumferentially dissected until the critical view of safety was completely and well identified. At this Legally authenticated by MARQUEZ BAKER 2 019-06-19 09:10:27 point, the cystic duct and cystic artery were th en doubly clipped proximally and singly clipped distally and then transected with ju. The gallbladder was then removed from the liver bed in a retrograde fashion, placed in an EndoCatch bag, and then extracted through the 12 mm port i n the subxiphoid position. Hemostasis was then verified. No evidence of ble eding was noted at the liver bed. The area was slightly irrigated and then ko ction dried. The 12 mm port was then completely removed from the patient's b corina. The Ubaldo-Jassi instrument was then utilized to close the fascia using a yyefsd-bj-adrrb stitch with a 0 Vicryl suture. All trocars were removed under direct vision while the abdomen was allowed to completely desufflate. Al l skin wound incisions were then verified for adequate hemostasis. Once sati sfied, 4-0 Monocryl in a running subcuticular fashion was then utilized t o close all skin wound incisions. Dermabond glue was applied. At the en d of our procedure, all instrument counts, lap counts, and sponges were correct x2. The patient tolerated the procedure well and was transferred to recovery room in stable condition. Jaime Zayas MD TT: 09/26/2018 12:55:05 [facility] /[id number] Electronically Authenticated by: Jaime Zayas MD on 11/12/2018 09:10 AM CDT Legally authenticated by MARQUEZ BAKER 2 09:10:27 2018-05-11 BISHOP RICHARDSONSSET 12:23:07-00:00 [place] [address] Patient Name: BHARATH FLEMING Patient#: [id number] Admission Date: 04/28/2018 Discharge Date: 04/30/2018 Age/Gender: 22/F Date of : 1995 HSSV//BED: [facility]/A Admitting Phys: Bishop Richardson MD DISCHARGE SUMMARY DATE OF ADMISSION: 04/28/2018 DATE OF DISCHARGE: 04/30/2018 PRIMARY DIAGNOSIS Term with previous section, SECONDARY DIAGNOSIS Term with previous section, PROCEDURE PERFORMED Repeat section. HOSPITAL COURSE This patient was admitted to the hospital for re peat . She underwent C- section without any complications. She was able to be discharged home on the 2nd day. DISCHARGE INSTRUCTIONS 1. Follow up in the office in 2 weeks. 2. No tampons, douching, or sexual intercourse. 3. She was to notify me of any complications wha barbaraoetamara. Bishop Richardson MD TT: 05/11/2018 12:23:07 [facility] /[id number] Electronically Authenticated by: Bishop Richardson M.D. on 05/14/2018 05:13 PM CHECKER Legally authenticated by DEBRA ALAS 2018-04 05:13:22 2018-05-10 BISHOP RICHARDSON 23:12:01-00:[address] [address] Patient Name: BHARATH FLEMING Patient#: [id number] Admission Date: 04/28/2018 Date of : 1995 Age/Gender: 22/F HSSV/RM/BED: OB/339/A Admitting Phys: Bishop Richardson MD OPERATIVE NOTE DATE OF SURGERY: 04/28/2018 SURGEON: Bishop Richardson MD PRIMARY DIAGNOSIS Repeat section at term. SECONDARY DIAGNOSIS Repeat section at term. PROCEDURE PERFORMED Repeat section via low transverse uteri ne incision. ANESTHESIA Spinal. ESTIMATED BLOOD LOSS 800 cc. MEDICATIONS IV fluids and Ancef. SPECIMEN Placenta. FINDINGS A male infant with weight 7 pounds 15 ounces, wi th Apgars of 9 and 9 at one and five minutes, respectively. PROCEDURE IN DETAIL This patient was brought to the operative suite, placed in sitting position, given spinal anesthesia under sterile condition. Next, placed in supine position, prepped and draped in usual sterile fa shion. Pfannenstiel incision made on the patient's abdomen from the s kin down to subcutaneous tissue to the anterior rectus fascia. Was cut in transverse fa shion. Parietal peritoneum was entered by blunt dissection. DeLee retractor hernan rodney over the urinary bladder for protection. After this was done, transverse incision made in lower uterine segment. delivered in occipital anterior position. Nasopharynx and oropharynx suctioned thoroughly. Anterior and po sterior shoulders were delivered, remainder of infant followed. Umbilic al cord clamped and cut. Cord blood taken. Placenta manually removed. Uterus then reapproximated and closed with 0 Monocryl in a running interlocking fashio n. Both ovaries and tubes appeared normal. Next rectus abdominis muscle re approximated and closed with 0 Monocryl in simple interrupted stitches. After t his was done, anterior rectus fascia closed with 0 Monocryl in running locked fashion. The subcutaneous tissue reapproximated with 0 Monocryl in simple interrupted stitch, and then skin closed with 3-0 Monocryl subcuticular stitc h. At the end of procedure, all needles and instruments accounted for. Patient t olerated procedure well. Legally authenticated by DEBRA ALAS 2018-04 05:13:32 Bishop Richardson MD TT: 05/10/2018 23:12:01 [facility] /[id number] Electronically Authenticated by: Bishop Richardson M.D. on 05/14/2018 05:13 PM CHECKER Legally authenticated by DEBRA ALAS 2018-04 05:13:32
[2023-02-07 09:05] LABS: Specific Gravity 1.013 (1.005-1.030)
[2023-02-07 09:07] LABS: Specific Gravity 1.013 (1.005-1.030); Urine Bacteria None Seen /HPF (<20); Urine Bilirubin NEGATIVE (Negative); Urine Blood 1+ (Negative); Urine Clarity Turbid (Clear); Urine Color Light-Yellow (Yellow); Urine Glucose NEGATIVE (Negative); Urine Mucus Slight /HPF (None Seen); Urine Protein NEGATIVE (Negative); Urine RBC <5 /HPF (None Seen); Urine Urobilinogen Normal (Normal); Urine pH 5.5 (5.0-7.0)
--- NOTE | 2023-02-07 10:05 | RAD REPORT ---
EXAM DESCRIPTION: US - Transvaginal Study Probe - 02/07/2023 9:49 am CLINICAL HISTORY: ABD PAIN COMPARISON: Transvaginal Study Probe dated 05/07/2022 TECHNIQUE: Sonographic grayscale and color flow images of the pelvis were obtained. FINDINGS: The uterus is normal in size, shape and echotexture. The uterus measures 6.2 cm in length. IUD in satisfactory position. The endometrial stripe measures 6 mm, normal. Both ovaries are normal in size, shape and echotexture. The left ovary measures 3.3 x 1.7 x 2.4 cm.T he right ovary measures 3.3 x 2.0 x 3.0 cm. It contains an ovoid anechoic 3.1 cm cyst. No other ova ame or parovarian lesions. No adnexal masses. Normal Doppler blood flow was demonstrated to both ovaries. No significant pelvic ascites. IMPRESSION: Dominant right ovarian 3.1 cm cyst, likely physiologic. IUD in satisfactory position.
--- NOTE | 2023-02-07 10:27 | EDPHYS ---
Physician Documentation [facility] Name: Rod Chiu Age: 27 yrs Sex: Female : 1995 Arrival Date: 02/07/2023 Time: 08:18 Bed 17 Private MD: ROSA Physician Pierre Werner HPI: 02/07 11:17 This 27 yrs old Female presents to ER via Ambulatory with complaints of Abdominal Pain, sb4 Vaginal Bleeding. 11:17 The patient presents with abdominal pain in the periumbilical area. Onset: The sb4 symptoms/episode began/occurred last night. The symptoms do not radiate. Associated signs and symptoms: Pertinent positives: nausea, vaginal bleeding. The patient has not experienced similar symptoms in the past. The patient has not recently seen a physician. patient states she has not had a menstrual cycle since getting her IUD 9 months ago. states last night she started experiencing periumbilical pain, vaginal bleeding, and nausea. she is concerned that her IUD is missplaced. 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 - Social history:: Smoking status: Patient denies any tobacco usage or history of. ROS: 11:17 Constitutional: Negative for fever, chills, and weight loss. sb4 11:17 Abdomen/GI: Positive for abdominal pain, nausea. 11:17 : Positive for vaginal bleeding. Exam: 11:17 Constitutional: This is a well developed, well nourished patient who is awake, alert, sb4 and in no acute distress. Head/Face: Normocephalic, atraumatic. Eyes: Extra-ocular motions intact. Periorbital areas with no swelling, redness, or edema. ENT: Mucous membranes moist. Cardiovascular: Regular rate and rhythm with a normal S1 and S2. Respiratory: Lungs have equal breath sounds bilaterally, clear to auscultation and percussion. No rales, rhonchi or wheezes noted. No increased work of breathing, no retractions or nasal flaring. Abdomen/GI: Soft, non-tender, no distension. Skin: Warm, dry with normal turgor. Normal color with no rashes, no lesions, and no evidence of cellulitis. MS/ Extremity: Pulses equal, no cyanosis. Neurovascular intact. Full, normal range of motion. Neuro: Awake and alert, GCS 15, oriented to person, place, time, and situation. Cranial nerves II-XII grossly intact. Motor strength 5/5 in all extremities. Sensory grossly intact. Cerebellar exam normal. Normal gait. Vital Signs: 08:40 BP 116 / 83; Pulse 75; Resp 16; Temp 99; Pulse Ox 98% ; Weight 79.38 kg; Height 5 ft. 2 ko1 in. ; 10:50 BP 115 / 72; Pulse 78; Resp 18; Temp 98; Pulse Ox 99% on R/A; ph 08:40 Body Mass Index 32.01 (79.38 kg, 157.48 cm) ko1 MDM: 08:22 Patient medically screened. sb4 11:17 Differential diagnosis: Dysmenorrhea, Ectopic , Endometriosis, non-specific sb4 abd pain, Ovarian Torsion, Tubal Ovarian Abcess, urinary tract infection, ovarian cysts, uterine perforation. Data reviewed: vital signs, nurses notes, lab test result(s), radiologic studies, and as a result, I will discharge patient. Counseling: I had a detailed discussion with the patient and/or guardian regarding the historical points, exam findings, and any diagnostic results supporting the discharge/admit diagnosis, lab results, radiology results, the need for outpatient follow up, an OB/Gyne specialist, to return to the emergency department if symptoms worsen or persist or if there are any questions or concerns that arise at home. 02/07 08:52 Order name: UAM; Complete Time: 09: sb4 02/07 08:52 Order name: Test, Urine; Complete Time: : sb4 02/07 08:52 Order name: US Transvaginal Study (Probe); Complete Time: 10:24 sb4 Administered Medications: No medications were administered Disposition: 11:17 Chart complete. Chart complete. sb4 Disposition Summary: 02/07/23 10:27 Discharge Ordered Location: Home sb4 Problem: new sb4 Symptoms: are unchanged sb4 Condition: Stable sb4 Diagnosis - Other ovarian cysts sb4 - Dysmenorrhea, unspecified sb4 Followup: sb4 - With: Chapis Marion MD - When: As needed - Reason: Recheck today's complaints, Re-evaluation by your physician Discharge Instructions: - Discharge Summary Sheet sb4 - Ovarian Cyst, [id number] sb4 - Dysmenorrhea, [id number] sb4 Forms: - Medication Reconciliation Form sb4 - Thank You Letter sb4 - Antibiotic Education sb4 - Prescription Opioid Use sb4 - Patient Portal Instructions sb4 - Leadership Thank You Letter sb4 Signatures: Dispatcher [employer] Kristen Meier RN RN koMaryann Wagoner PA-C PA-C sb4 Corrections: (The following items were deleted from the chart) 11:19 11:17 patient states she has not had a menstrual cycle since getting her IUD 9 months sb4 ago. states last night she started experiencing periumbilical pain, vaginal bleeding, and nausea. sb4
--- NOTE | 2023-02-07 10:27 | ER ---
Nurse's Notes [facility] Name: Rod Chiu Age: 27 yrs Sex: Female : 1995 Arrival Date: 02/07/2023 Time: 08:18 Bed 17 Private MD: Diagnosis: Other ovarian cysts;Dysmenorrhea, unspecified Presentation: 02/07 08:40 Chief complaint: Patient states: had merena placed jun 21, 2022, has not had a period ko1 since then. Cramping around umbilicus area started last night and noticed some bleeding after urinating when I wiped. This morning it is just spotting but still cramping. Coronavirus screen: At this time, the client does not indicate any symptoms associated with coronavirus-19. Ebola Screen: No symptoms or risks identified at this time. Initial Sepsis Screen: Does the patient meet any 2 criteria? No. Patient's initial sepsis screen is negative. Does the patient have a suspected source of infection? No. Patient's initial sepsis screen is negative. Risk Assessment: Do you want to hurt yourself or someone else? Patient reports no desire to harm self or others. Onset of symptoms was February 07, 2023. 08:40 Method Of Arrival: Ambulatory ko1 08:40 Acuity: JAIDEN 4 ko1 Triage Assessment: 08:43 General: Appears in no apparent distress. Behavior is calm, cooperative, appropriate ko1 for age. Pain: Complains of pain in umbilical area. GI: Reports lower abdominal pain. 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 - Social history:: Smoking status: Patient denies any tobacco usage or history of. Screenin:52 [facility] ED Fall Risk Assessment (Adult) History of falling in the last 3 months, ph including since admission No falls in past 3 months (0 pts) Confusion or Disorientation No (0 pts) Intoxicated or Sedated No (0 pts) Impaired Gait No (0 pts) Mobility Assist Device Used No (0 pt) Altered Elimination No (0 pt) Score/Fall Risk Level 0 - 2 = Low Risk Oriented to surroundings, Maintained a safe environment, Hourly rounding (assess needs \T\ fall precautionary measures) done. Abuse screen: Denies threats or abuse. Denies injuries from another. Nutritional screening: No deficits noted. Tuberculosis screening: No symptoms or risk factors identified. Assessment: 08:52 General: Appears in no apparent distress. comfortable, Behavior is calm, cooperative, ph appropriate for age. Pain: Complains of pain in suprapubic area. Neuro: Level of Consciousness is awake, alert, obeys commands, Oriented to person, place, time, situation. : Reports cramping, vaginal bleeding that is light flow. Derm: Skin is pink, warm \T\ dry. 09:03 Reassessment: Pt taken to US via wheelchair. ph Vital Signs: 08:40 BP 116 / 83; Pulse 75; Resp 16; Temp 99; Pulse Ox 98% ; Weight 79.38 kg; Height 5 ft. 2 ko1 in. ; 10:50 BP 115 / 72; Pulse 78; Resp 18; Temp 98; Pulse Ox 99% on R/A; ph 08:40 Body Mass Index 32.01 (79.38 kg, 157.48 cm) ko1 ED Course: 08:20 Patient arrived in ED. rg4 08:22 Maryann Vogel PA-C is PHCP. sb4 08:22 Pierre Werner MD is Attending Physician. sb4 08:43 Triage completed. ko1 08:43 Arm band placed on right wrist. Patient placed in an exam room, on a stretcher, on ko1 pulse oximetry, Patient notified of wait time. 08:49 Jolynn Marquez, RN is Primary Nurse. ph 08:53 Patient has correct armband on for positive identification. Bed in low position. Call ph light in reach. Side rails up X 1. Pulse ox on. NIBP on. Door closed. Noise minimized. 09:02 UAM Sent. ph 09:02 Test, Urine Sent. ph 09:18 US Transvaginal Study (Probe) In Process Unspecified. EDMS 10:27 Chapis Marion MD is Referral Physician. sb4 10:50 No provider procedures requiring assistance completed. Patient did not have IV access ph during this emergency room visit. Administered Medications: No medications were administered Medication: 08:53 VIS not applicable for this client. ph Outcome: 10:27 Discharge ordered by MD. oneill 10:50 Discharged to home ambulatory. ph 10:50 Condition: good 10:50 Discharge instructions given to patient, Instructed on discharge instructions, follow up and referral plans. Demonstrated understanding of instructions, follow-up care. 10:51 Patient left the ED. ph Signatures: Dispatcher [employer] EDJolynn Courtney RN RN ph Garcia, Rubi rg4 Kristen Hicks RN RN koMaryann Wagoner, PA-C PA-Sol sb4
[2023-02-07 11:05] VITALS: BP 115/72; TEMP 98; O2SAT 99
== END 2023-02-07 10:51 | disposition home or self-care (01) ==
LOC: ER 08:18
DX: N94.6 Dysmenorrhea, unspecified (principal); N83.299 Other ovarian cyst, unspecified side
CPT/HCPCS: 76830; 81001; 81025; 99283

== ENCOUNTER 2023-05-04 10:20 | Emergency (ER) | payer SELFPAY ==
--- OUTSIDE RECORDS SUMMARY | 2023-05-04 10:23 | XMS REPORT | Continuity of Care Document ---
Author Name Unknown Address [address] [facility] [address] Address [address] [facility] [address] [place] [address] Care Team Providers Care Rodeo Performer Name Role Phone Pedro Steen MD Primary Care Physician [phone] PEDRO STEEN Attending Clinician Unavailable Pedro Steen MD Attending Clinician [phone] Doctor Unassigned, [place] Attending Clinician U Porsha Austin PA-C Attending Clinician [phone] Malinda Cardoso Attending Clinician [phone] PORSHA WOODS Attending Clinician Unavailable Payers Payer Name Policy Type Policy Number Effective Date Expirati on Date Source FORMERLY [facility] [id number] 2018 00:00:00 Problems Condition Name Condition Details Condition Category Status Onset Date Resolution Date Last Treatment Date Treating Clinician Comments Source Chlamydia trachomati s infection of lower genitourin sree sites Chlamydia trachomati s infection of lower genitourin sree sites Disease Active 10-22 00:00: 00 [facility] Need for Tdap vaccinatio n Need for Tdap vaccinatio n Disease Active 10-20 00:00: 00 [facility] Screening for STD (sexually transmitte d disease) Screening for STD (sexually transmitte d disease) Disease Active 10-20 00:00: 00 Overview: Formattin g of this note might be different from the original. ICD10 Diagnosis Term Licensed Land [employer]or Utility [facility] Presence of intrauteri ne contracept cindy device Presence of intrauteri ne contracept cindy device Disease Active 10-20 00:00: 00 [facility] Overweight Overweight Disease Active 10-20 00:00: 00 Overview: Formattin g of this note might be different from the original. ICD10 Diagnosis Term Licensed Land [employer] Utility [facility] Allergies, Adverse Reactions, Alerts Allergy Name Allergy Type Status Severity Reaction(s) Onset Date Inactive Date Treating Clinician Comments Source NO KNOWN ALLERGIE S Drug Class Active [facility] Social History Social Habit Start Date Stop Date Quantity Comments Source Gender identity [facility] Exposure to SARS-CoV-2 (event) 2022-07-22 00:00:00 2022-08-01 13:47:00 Not sure [facility] Alcohol intake 2022-08-01 00:00:00 2022-08-01 00:00:00 Current non-drinker of alcohol (finding) [facility] History of Social function 2022-08-01 00:00:00 2022-08-01 00:00:00 [facility] Tobacco use and exposure 2014-10-19 00:00:00 2014-10-19 00:00:00 Smokeless tobacco non-user [facility] Sex Assigned At 1995 00:00:00 1995 00:00:00 [facility] Smoking Status Start Date Stop Date Source Never smoked tobacco [facility] Medications Ordered Medication Name Filled Medication Name Start Date Stop Date Current Medication? Ordering Clinician Indication Dosage Frequency Signature (SIG) Comments Components Source levonorgest reL (MIRENA) IUD 1 Device 06-21 15:45: 00 06-21 15:17 :00 No [id number] 1{devic e} [facility] levonorgest reL (MIRENA) IUD 1 Device 06-21 15:45: 00 06-21 15:17 :00 No [id number] 1{devic e} 1 Device, Intrauteri ne, ONCE, 1 dose, On Stella 06/21/22 at 0945, Routine [facility] levonorgest reL (MIRENA) IUD 1 Device 06-21 15:45: 00 06-21 15:17 :00 No [id number] 1{devic e} [facility] levonorgest reL (MIRENA) IUD 1 Device 06-21 15:45: 00 06-21 15:17 :00 No [id number] 1{devic e} 1 Device, Intrauteri ne, ONCE, 1 dose, On Stella 06/21/22 at 0945, Routine [facility] medroxyPROG ESTERone 150 mg/mL injection 06-21 09:14: 42 06-21 00:00 :00 No 150mg 150 mg by Intramuscu lar route every 3 (three) months. [facility] medroxyPROG ESTERone 150 mg/mL injection 06-21 09:14: 42 06-21 00:00 :00 No 150mg 150 mg by Intramuscu lar route every 3 (three) months. [facility] miSOPROStoL 200 mcg tablet 06-20 00:00: 00 Yes Take one table the night before the procedure and one tablet the morning of procedure [facility] miSOPROStoL 200 mcg tablet 06-20 00:00: 00 06-21 00:00 :00 No Take one table the night before the procedure and one tablet the morning of procedure [facility] miSOPROStoL 200 mcg tablet 06-20 00:00: 00 06-21 00:00 :00 No Take one table the night before the procedure and one tablet the morning of procedure [facility] medroxyPROG ESTERone 150 mg/mL injection 2021-05 14:47: 22 Yes 150mg 150 mg by Intramuscu lar route every 3 (three) months. [facility] medroxyPROG ESTERone 150 mg/mL injection 2021-05 14:47: 22 Yes 150mg 150 mg by Intramuscu lar route every 3 (three) months. [facility] medroxyPROG ESTERone 150 mg/mL injection 2021-05 14:47: 22 Yes 150mg 150 mg by Intramuscu lar route every 3 (three) months. [facility] miSOP[facility] 200 mcg tablet 2021-05 00:00: 00 Yes [id number] Take 1 tablet by mouth the night before and one tablet the morning of the procedure. [facility] miSOPROStoL 200 mcg tablet 2021-05 00:00: 00 Yes [id number] Take 1 tablet by mouth the night before and one tablet the morning of the procedure. [facility] miSOPROStoL 200 mcg tablet 2021-05 00:00: 00 Yes [id number] Take 1 tablet by mouth the night before and one tablet the morning of the procedure. [facility] miSOPROStoL 200 mcg tablet 2021-05 00:00: 00 05-16 00:00 :00 No [id number] Take 1 tablet by mouth the night before and one tablet the morning of the procedure. [facility] miSOPROStoL 200 mcg tablet 2021-05 00:00: 00 05-16 00:00 :00 No [id number] Take 1 tablet by mouth the night before and one tablet the morning of the procedure. [facility] fluconazole 150 mg tablet 2021-05 00:00: 00 05-03 05:59 :00 No [id number] 150mg Take 1 tablet by mouth once now for 1 dose. [facility] medroxyPROG ESTERone 150 mg/mL injection 2021-05 14:37: 26 Yes 150mg 150 mg by Intramuscu lar route every 3 (three) months. [facility] medroxyPROG ESTERone 150 mg/mL injection 2021-05 14:37: 26 Yes 150mg 150 mg by Intramuscu lar route every 3 (three) months. [facility] medroxyPROG ESTERone 150 mg/mL injection 2021-05 14:37: 26 Yes 150mg 150 mg by Intramuscu lar route every 3 (three) months. [facility] medroxyPROG ESTERone 150 mg/mL injection 2021-05 14:37: 26 Yes 150mg 150 mg by Intramuscu lar route every 3 (three) months. [facility] medroxyPROG ESTERone 150 mg/mL injection 2021-05 14:37: 26 Yes 150mg 150 mg by Intramuscu lar route every 3 (three) months. [facility] medroxyPROG ESTERone 150 mg/mL injection 2021-05 14:37: 26 Yes 150mg 150 mg by Intramuscu lar route every 3 (three) months. [facility] medroxyPROG ESTERone 150 mg/mL injection 2021-05 14:37: 26 Yes 150mg 150 mg by Intramuscu lar route every 3 (three) months. [facility] Vital Signs Vital Name Observation Time Observation Value Comments S ource Systolic blood pressure 2022-08-01 20:13:00 120 mm[Hg] [facility] Diastolic blood pressure 2022-08-01 20:13:00 68 mm[Hg] [facility] Heart rate 2022-08-01 20:13:00 82 /min [facility] Body temperature 2022-08-01 20:13:00 36.67 Kirsten [facility] Body height 2022-08-01 20:13:00 157.5 cm [facility] Body weight 2022-08-01 20:13:00 74.118 kg [facility] BMI 2022-08-01 20:13:00 29.89 kg/m2 [facility] Systolic blood pressure 2022-06-21 15:02:00 116 mm[Hg] [facility] Diastolic blood pressure 2022-06-21 15:02:00 72 mm[Hg] [facility] Heart rate 2022-06-21 15:02:00 77 /min [facility] Body temperature 2022-06-21 15:02:00 36.78 Kirsten [facility] Body height 2022-06-21 15:02:00 157.5 cm [facility] Body weight 2022-06-21 15:02:00 73.301 kg [facility] BMI 2022-06-21 15:02:00 29.56 kg/m2 [facility] Systolic blood pressure 2022-05-16 19:23:00 112 mm[Hg] [facility] Diastolic blood pressure 2022-05-16 19:23:00 77 mm[Hg] [facility] Heart rate 2022-05-16 19:23:00 74 /min Un[facility] Body temperature 2022-05-16 19:23:00 36.72 Kirsten [facility] Respiratory rate 2022-05-16 19:23:00 18 /min [facility] Body height 2022-05-16 19:23:00 157.5 cm [facility] Body weight 2022-05-16 19:23:00 70.761 kg [facility] BMI 2022-05-16 19:23:00 28.53 kg/m2 [facility] Systolic blood pressure 2022-05-01 20:35:00 123 mm[Hg] [facility] Diastolic blood pressure 2022-05-01 20:35:00 86 mm[Hg] [facility] Heart rate 2022-05-01 20:35:00 66 /min [facility] Body temperature 2022-05-01 20:35:00 36.72 Kirsten [facility] Respiratory rate 2022-05-01 20:35:00 18 /min [facility] Body height 2022-05-01 20:35:00 157.5 cm [facility] Body weight 2022-05-01 20:35:00 71.759 kg [facility] BMI 2022-05-01 20:35:00 28.94 kg/m2 [facility] Procedures Procedure Date / Time Performed Performing Clinicia n Source DISCLOSURE AND CONSENT, MEDICAL AND SURGICAL PROCEDURES 2022-06-21 06:01:00 Doctor Unassigned, [place] [facility] POCT TEST 2022-06-21 00:00:00 Pedro Steen [facility] POCT TEST 2022-05-16 00:00:00 Pedro Steen [facility] POCT URINALYSIS W/O SPECIFIC GRAVITY 2022-05-01 00:00:00 Porsha Woods [facility] Encounters Start Date/Time End Date/Time Encounter Type Admission Type Attending [facility] Care Department Encounter ID Source 2023-05-08 10:30:00 2023-05-08 10:30:00 Outpatient R PEDRO STEEN [facility] [id number] [facility] 2023-02-07 00:00:00 2023-02-07 00:00:00 Telephone Pedro Steen [facility] [id number] 350.1.13.10 4.2.7.2.686 [id number] 134 [id number] [facility] 2022-11-14 13:57:16 2022-11-14 13:57:16 Outpatient [facility] [id number] Darci Mcdonald 2022-08-01 14:30:00 2022-08-01 15:00:00 Office Visit Pedro Steen [facility] [id number] 350.1.13.10 4.2.7.2.686 [id number] [facility] 2022-08-01 14:30:00 2022-08-01 14:30:00 Outpatient R PEDRO STEEN [facility] [id number] [facility] 2022-06-28 00:00:00 2022-06-28 00:00:00 Telephone Pedro Steen [facility] [id number] 350.1.13.10 4.2.7.2.686 [id number] 134 [id number] [facility] 2022-06-21 09:00:00 2022-06-21 09:15:55 Office Visit Pedro Steen [facility] 1.2.840.114 350.1.13.10 4.2.7.2.686 [id number] 134 [id number] [facility] 2022-06-21 09:00:00 2022-06-21 09:15:55 Outpatient R PEDRO STEEN [facility] [id number] [facility] 2022-06-21 00:00:00 2022-06-21 00:00:00 Orders Only Doctor Unassigned, [place] [facility] 1.2840.114 350.1.13.10 4.2.7.2.686 [id number] [facility] 2022-06-20 00:00:00 2022-06-20 00:00:00 Telephone Pedro Steen [facility] 1.284.114 350.1.13.10 4.2.7.2.686 [id number] 134 [id number] [facility] 2022-05-16 13:15:00 2022-05-16 13:59:39 Outpatient R PEDRO STEEN [facility] [id number] [facility] 2022-05-16 13:15:00 2022-05-16 13:59:39 Office Visit Iona Steenen [facility] 1.284.114 350.1.13.10 4.2.7.2.686 [id number] 134 [id number] [facility] 2022-05-04 00:00:00 2022-05-04 00:00:00 Telephone Porsha Woods [facility] 1.2.840.114 350.1.13.10 4.2.7.2.686 [id number] [facility] 2022-05-04 00:00:00 2022-05-04 00:00:00 Telephone Glen Porsha [facility] 1.2.840.114 350.1.13.10 4.2.7.2.686 [id number] [facility] 2022-05-04 00:00:00 2022-05-04 00:00:00 Refill Porsha Woods [facility] 1.2.840.114 350.1.13.10 4.2.7.2.686 [id number] 134 [id number] [facility] 2022-05-02 00:00:00 2022-05-02 00:00:00 Telephone Malinda Cardoso [facility] 1.2.840.114 350.1.13.10 4.2.7.2.686 [id number] [facility] 2022-05-02 00:00:00 2022-05-02 00:00:00 Case Management Porsha Woods [facility] 1.2.840.114 350.1.13.10 4.2.7.2.686 [id number] 134 [id number] [facility] 2022-05-01 14:30:00 2022-05-01 15:19:37 Office Visit Porsha Woods [facility] 1.2.840.114 350.1.13.10 4.2.7.2.686 [id number] [facility] 2022-05-01 14:30:00 2022-05-01 15:19:37 Outpatient R ELIEZERTREVERMICHELLPORSHA [facility] [id number] [facility] 2016-11-21 12:48:00 2016-11-21 12:48:00 Emergency E [facility] [id number] [facility] 2016-11-19 12:50:00 2016-11-19 12:50:00 Emergency E [facility] [id number] [facility] Results Test Description Test Time Test Comments Results Result Co mments Source [facility] [id number] 14:58:00* Test Item Value Reference Range Interpretation Comme nts POCT PREG (test code = 1605) Negative On board controls acceptable with C Line (test code = 3574) Yes POCT PREG LOT # (test code = 3575) POCT PREG TEST DATE ( test code = 3576) [facility] [id number] 19:39:00* Test Item Value Reference Range Interpretation Comme nts POCT PREG (test code = 1605) Negative On board controls acceptable with C Line (test code = 3574) Yes POCT PREG LOT # (test code = 3575) POCT PREG TEST DATE ( test code = 3576) [facility] [id number] 19:39:00* Test Item Value Reference Range Interpretation Comme nts POCT PREG (test code = 1605) Negative On board controls acceptable with C Line (test code = 3574) Yes POCT PREG LOT # (test code = 3575) POCT PREG TEST DATE ( test code = 3576) [facility] URINALYSIS W/O SPECIFIC [id number] 21:35:00* Test Item Value Reference Range Interpretation Comme nts POCT PH U (test code = 3254) 8 mg/dl 5-8 POCT U LEUK EST (test code = 3263) negative Negative - Negative POCT U NIT (test code = 3262) negative Negative - Negati ve POCT U PROT (test code = 3259) negative Negative - Negat cindy POCT U GLU (test code = 3256) negative Negative - Negati ve POCT U KETONE (test code = 3258) negative Negative - Neg ative POCT U BLD (test code = 3257) negative Negative - Negati ve [facility] URINALYSIS W/O SPECIFIC [id number] 21:35:00* Test Item Value Reference Range Interpretation Comme nts POCT PH U (test code = 3254) 8 mg/dl 5-8 POCT U LEUK EST (test code = 3263) negative Negative - Negative POCT U NIT (test code = 3262) negative Negative - Negati ve POCT U PROT (test code = 3259) negative Negative - Negat cindy POCT U GLU (test code = 3256) negative Negative - Negati ve POCT U KETONE (test code = 3258) negative Negative - Neg ative POCT U BLD (test code = 3257) negative Negative - Negati ve [facility] BranchPATHOLOGY [id number] 15:01:00TISSUE CONSULTATION REPORTBAPTJOHN PETER SMITH HOSPITALDEPARTMENT OF PATHOLOGYP.O. [address]BMARGOT MADDEN [address] [facility] CHANCE RAMOS M.D.ROBERT L. HUTTON, M.D.CHARLES E. BURNS, M.D. ____Patient: BHARATH FLEMING Osmin 1995 [id number] FRoom:Hosp#: [id number] Ordering Physician: Donald ZAYAS Rec.: 09/26/2018Date of Proc.: 09/26/2018Lab No.: [id number] Clinical History:Calculus of gallbladder with acute cholecystitis withoutobstruction.FINAL ANATOMIC DIAGNOSIS:GALLBLADDER, CHOLECYSTECTOMY:CHRONIC CHOLECYSTITIS.CHOLELITHIASIS AND FOCAL GOBLET CELL METAPLASIA WITHOUT MALIGNANCYOR DYSPLASIA.MICROSCOPIC EXAMINATION:Performed .GROSS APPEARANCE:The specimen labeled "gallbladder." Received in formalin is apurple-pink to green-tinged gallbladder 8.5 cm in length. It rangesfrom 1.5 cm at the cystic duct to about 3 cm in diameter near themid fundus. The gallbladder is sectioned releasing slightlytenacious green-yellow bile and a single pxqntvmq-gpjvwexlgidu-twegj stone about 1.8 cm in greatest diameters. Mucosa andmuscle wall are fairly uniformly 0.1 (or 0.2) cm in thickness. Nomucosal excrescences are seen. RS in one cassette.PATHOLOGIST: Deion Lewis Electronically Signed: 09/29/2018B-HCG QUAL (KIT)2018-09-26 10:25:00* Test Item Value Reference Range Interpretation Comme nts HCGQUAL (test code = HCGQUAL) NEGATIVE NEGATIVE URINE: NEGATIVE = < 20 mIU/ML; POSITIVE= >/= 20 mIU/ML SERUM: NEGATIVE = < 10 mIU/ML; POSITIVE= >/= 10 mIU/ML SOURCE (test code = SOURCE) URINE HCG INTERNAL POSITIVE CNTRL (test code = HCGIPC) PASS PASS HCG LOT # (test code = UHCGLOT) [id number] HCG EXPIRATION DATE (test code = UHCGEXP) [id number] 11:03:00* Test Item Value Reference Range Interpretation Comme nts SODIUM (test code = NA) 144 MMOL/L 137-145 K+ (test code = KSERUM) 5.3 MMOL/L 3.5-5.1 H PLEASE NOTE NEW REFERENCE RANGE(S) IN EFFECT EFFECTIVE 12/29/2009 - NEW ANALYZER (VITROS 5600) CHLORIDE (test code = CL) 105 MMOL/L 98-107 CO2 (test code = CO2) 30 MMOL/L 22-30 BUN (test code = BUN) 11 MG/DL 7-17 CREA (test code = CREA) 0.5 MG/DL 0.7-1.2 L GLUCOSE (test code = GLUCOSE) 83 MG/DL 70-99 Fasting glucos e normal <100 MG/DL- [employer] recommendation CALCIUM (test code = CABLOOD) 9.5 MG/DL 8.4-10.2 TOTPROT (test code = TOTPROT) 7.4 G/DL 6.3-8.2 ALBUMIN (test code = ALBSERUM) 4.4 G/DL 3.5-5.0 BILITOT (test code = BILITOT) 0.3 MG/DL 0.2-1.3 AST (test code = AST) 19 U/L 15-46 PHOSALK (test code = PHOSALK) 104 U/L 38-126 ALT (test code = ALT) 22 U/L 13-69 GFR (test code = GFR) 160 mL/min/1.73m2 A GFR of >90 mL/min/1.73m2 is considered normal. [id number] 11:00:00* Test Item Value Reference Range Interpretation Comme nts GLUCOSE (test code = URGLU) NEGATIVE MG/DL NEG-100 BILIRUBN (test code = URBILI) NEGATIVE NEGATIVE KETONE (test code = URKET) NEGATIVE MG/DL NEGATIVE BLOOD (test code = URBLD) NEGATIVE UR PH (test code = URPH) 6.0 5.0-7.5 PROTEIN (test code = URPRO) NEGATIVE MG/DL NEGATIVE NITRITES (test code = URNIT) NEGATIVE NEGATIVE UROBILINGEN (test code = URURO) 0.2 EU/DL 0.2-1.0 LEUKOCYT (test code = URLEU) SMALL NEGATIVE UA COLOR (test code = UA COLOR) YELLOW YELLOW CLARITY (test code = CLARITY) CLEAR CLEAR SP GRAV (test code = URSPGRAV) 1.016 1.000-1.025 UAMICRO (test code = UAMICRO) YES WBC (test code = URWBC) 8 /HPF 0-5 H RBC (test code = URRBC) 0 /HPF 0-2 CASTS (test code = CAST) 2 /LPF 0-3 UR EPI (test code = EPI) 74 /LPF BACTERIA (test code = BACTERIA) NEGATIVE NONE [id number] 10:51:00* Test Item Value Reference Range Interpretation Comme nts WBC (test code = WBC) 7.4 K/UL 3.5-10.9 RBC (test code = RBC) 4.53 M/UL 4.0-5.0 HGB (test code = HGB) 12.8 G/DL 11.5-15.5 HCT (test code = HCT) 40.4 % 34-46 MCV (test code = MCV) 89.2 FL 80-98 MCH (test code = MCH) 28.3 PG 28-32 MCHC (test code = MCHC) 31.7 G/DL 32.5-36.5 L RDW (test code = RDW) 12.8 % 11.5-14.5 PLT (test code = PLT) 267 K/UL 150-450 MPV (test code = MPV) 9.3 FL 7.4-10.4 MANDIFF (test code = MANDIFF) NO SCAN (test code = SCAN) NO NEUT% (test code = NEUT%) 50.7 % 40-75 LYMPH% (test code = LYMPH%) 35.4 % 24-44 MONO% (test code = MONO%) 5.6 % 0-13 EOS% (test code = EOS%) 7.7 % 0-4 H BASO % (test code = BASO%) 0.5 % 0-2 IG (test code = IG) 0 % 0-1 IG% (test code = IG%) 0.1 % 0-1 IG% = Metamyeloc ytes, Myelocytes, and Promyelocytes. (Immature neutrophils not including "bands".) > 3% IG indicates risk of sepsis NRBC% (test code = NRBC%) 0 /100 WBC ABS NEUT (test code = NEUT) 3.7 K/UL 1.2-7.2 PROTHROMBIN TIME WITH [id number] 10:51:00* Test Item Value Reference Range Interpretation Comme nts PROTHROMBIN TIME (test code = PT) 12.6 SECONDS 12.0-14.6 INR Usual Range = 2 to 3 for prevention of deep vein thrombosis (DVT) INR (test code = INR) 0.9 [id number] 10:51:00* Test Item Value Reference Range Interpretation Comme nts PTT (test code = PTT) 31.2 SECONDS 24.4-36.3 HEPARIN THERAPEU TIC RANGE 57-92 SECONDS US [id number] 05:18:20Patient: BHARATH FLEMING Date/Time05/11/2018 05:03 CSTReason for ExamAbdominal pain, right upper quadrantReportOrdering Physician: Jayme Loredoinical Indication: Abdominal pain, right upper quadrantAdditional Clinical Information:Permanent images are acquired for the patient'smedical record. The pancreas is normal in appearance. The gallbladder is contracted. There is a stone in the sludge ball. Common bile duct measures 3 to 4.5 mm. There is no gallbladder wall thickening of the gallbladder is contracted. Intrahepatic bile ducts are not dilated.The right kidney is 12.7x 5.7 cm with is no hydronephrosis.The liver is normal in size and echogenicity. Abdominal aorta and IVC normal in caliber.IMPRESSION: Contracted postprandial gallbladder. There is a visible stone and sludge ball without ultrasound evidence of acute cholecystitis.RL: [id number]: [id number] Final Di ctated by: MD Quigley Tec SDictated DT/TM: 05/11/2018 5:22 amSigned by: MD Quigley Tec SSigned (Electronic Signature): 05/11/2018 5:18 amCT Angio [id number] 01:53:01Patient: BHARATH FLEMING Date/Time05/11/2018 01:46 CSTReason for ExamChest painReportOrdering Physician: Ra CervantesClinical Indication: Chest painAdditional Clinical Information:The exam is performed with axial postcontrast images with 3-D MIPS reconstruction. The exam was performed using the ALARA principles. Interpretation based on extrapolated NASCET criteria.There is slightly suboptimal enhancement of the pulmonary arteries. There are no larger central emboli. The heartsize is normal. There is no pericardial effusion. Upper liver spleen enhances normally.There is no adrenal mass. Probable gallstone.Lung windows shows no infiltrates or effusions.IMPRESSION: Slightlysuboptimal enhancement of the pulmonary arteries. No larger central emboli.2. No infiltrates effusions or edema.3. Possible gallstone versus motion artifact.RL: [id number]: [id number] Final Dictatedby: MD Quigley Tec SDictated DT/TM: 05/11/2018 1:57 amSigned by: MD Quigley Tec SSigned (Electronic Signature): 05/11/2018 1:53 amHEPATITIS C ANTIBODY [id number] 08:00:00* Test Item Value Reference Range Interpretation Comme nts SCRN HCV (test code = SCRN HCV) NEGATIVE NEGATIVE Hepatitis C Anti body test is for screening purposes only. All reactives will be confirmed by additional testing. [id number] 06:32:00* Test Item Value Reference Range Interpretation Comme nts WBC (test code = WBC) 8.6 K/UL 3.5-10.9 RBC (test code = RBC) 2.91 M/UL 4.0-5.0 L HGB (test code = HGB) 8.6 G/DL 11.5-15.5 L HCT (test code = HCT) 26.1 % 34-46 L MCV (test code = MCV) 89.7 FL 80-98 MCH (test code = MCH) 29.6 PG 28-32 MCHC (test code = MCHC) 33.0 G/DL 32.5-36.5 RDW (test code = RDW) 12.2 % 11.5-14.5 PLT (test code = PLT) 128 K/UL 150-450 L MPV (test code = MPV) 11.8 FL 7.4-10.4 H MANDIFF (test code = MANDIFF) NO SCAN (test code = SCAN) NO NEUT% (test code = NEUT%) 69.1 % 40-75 LYMPH% (test code = LYMPH%) 23.1 % 24-44 L MONO% (test code = MONO%) 6.3 % 0-13 EOS% (test code = EOS%) 0.9 % 0-4 BASO % (test code = BASO%) 0.2 % 0-2 IG (test code = IG) 0 % 0-1 IG% (test code = IG%) 0.4 % 0-1 IG% = Metamyeloc ytes, Myelocytes, and Promyelocytes. (Immature neutrophils not including "bands".) > 3% IG indicates risk of sepsis NRBC% (test code = NRBC%) 0 /100 WBC ABS NEUT (test code = NEUT) 5.9 K/UL 1.2-7.2 RPR FOR SERUM [id number] 05:32:00* Test Item Value Reference Range Interpretation Comme nts RPR (test code = RPR) NONREACTIVE NONREACTIVE NR = NON-REACTIV E R = REACTIVE HIV 1/2 [id number] 12:38:00* Test Item Value Reference Range Interpretation Comme nts HIV 1/2 ANTIBODY (test code = AHIV) NONREACTIVE NONREACTIVE This test is used for SCREENING purposes only. All reactive results are prelimenary and confirmation results will follow. [id number] 12:13:00* Test Item Value Reference Range Interpretation Comme nts BLOOD TYPE (test code = TYPE) A Rh Positive ANTIBODY SCREEN (test code = SCREEN) NEGATIVE NEGATIVE DRUG SCREEN W/ [id number] 11:52:00* Test Item Value Reference Range Interpretation Comme nts AMPHETAMINES (test code = AMPHET) NEGATIVE NEGATIVE This is an uncon firmed screening. Result are to be used for medical purposes (treatment) only. Not intended for non-medical purposes. Cut-off concentration for a positive result for each drug: Amphetamine - 1,000 ng/ml Barbiturate - 200 ng/ml Benzodiazepine - 200 ng/ml Cannabinoids - 50 ng/ml Cocaine - 300 ng/ml Opiates - 300 ng/ml PCP - 25 ng/ml BARBITURATES (test code = KAUSHIK) NEGATIVE NEGATIVE BENZODIAZEPINES (test code = BENZO) NEGATIVE NEGATIVE CANNABINOIDS (test code = NEGRA) NEGATIVE NEGATIVE COCAINE (test code = MARK) NEGATIVE NEGATIVE OPIATES (test code = OPIATE) NEGATIVE NEGATIVE PHENCYCLIDINE(PCP) (test code = PHENCY) NEGATIVE NEGATIVE [id number] 11:22:00* Test Item Value Reference Range Interpretation Comme nts WBC (test code = WBC) 10.1 K/UL 3.5-10.9 RBC (test code = RBC) 3.77 M/UL 4.0-5.0 L HGB (test code = HGB) 11.3 G/DL 11.5-15.5 L HCT (test code = HCT) 33.6 % 34-46 L MCV (test code = MCV) 89.1 FL 80-98 MCH (test code = MCH) 30.0 PG 28-32 MCHC (test code = MCHC) 33.6 G/DL 32.5-36.5 RDW (test code = RDW) 12.4 % 11.5-14.5 PLT (test code = PLT) 153 K/UL 150-450 MPV (test code = MPV) 11.5 FL 7.4-10.4 H MANDIFF (test code = MANDIFF) NO SCAN (test code = SCAN) NO NEUT% (test code = NEUT%) 81.0 % 40-75 H LYMPH% (test code = LYMPH%) 14.6 % 24-44 L MONO% (test code = MONO%) 3.2 % 0-13 EOS% (test code = EOS%) 0.5 % 0-4 BASO % (test code = BASO%) 0.2 % 0-2 IG (test code = IG) 0 % 0-1 IG% (test code = IG%) 0.5 % 0-1 IG% = Metamyeloc ytes, Myelocytes, and Promyelocytes. (Immature neutrophils not including "bands".) > 3% IG indicates risk of sepsis NRBC% (test code = NRBC%) 0 /100 WBC ABS NEUT (test code = NEUT) 8.2 K/UL 1.2-7.2 H [id number] 11:21:00* Test Item Value Reference Range Interpretation Comme nts GLUCOSE (test code = URGLU) NEGATIVE MG/DL NEG-100 BILIRUBN (test code = URBILI) NEGATIVE NEGATIVE KETONE (test code = URKET) 15 MG/DL NEGATIVE BLOOD (test code = URBLD) MODERATE UR PH (test code = URPH) 7.0 5.0-7.5 PROTEIN (test code = URPRO) 300 MG/DL NEGATIVE NITRITES (test code = URNIT) NEGATIVE NEGATIVE UROBILINGEN (test code = URURO) 0.2 EU/DL 0.2-1.0 LEUKOCYT (test code = URLEU) NEGATIVE NEGATIVE UA COLOR (test code = UA COLOR) YELLOW YELLOW CLARITY (test code = CLARITY) CLOUDY CLEAR SP GRAV (test code = URSPGRAV) 1.016 1.000-1.025 UAMICRO (test code = UAMICRO) YES WBC (test code = URWBC) 4 /HPF 0-5 RBC (test code = URRBC) 15 /HPF 0-2 H CASTS (test code = CAST) 8 /LPF 0-3 H UR EPI (test code = EPI) 167 /LPF BACTERIA (test code = BACTERIA) TRACE NONE 69133& PELVIS W/O [id number] 13:58:51CT ABDOMEN AND CT PELVIS WITHOUT IV OR ORAL CONTRAST (CT STONEPROTOCOL):CLINICAL HISTORY: Vaginal bleeding. Back pain.Radiation dose lowering techniques were used with automated exposurecontrol, adjusting the mA according to patient's size.Images were started at the lung bases and extended through the upperabdomen and below the pubic symphysis without IV or oral contrast.Examination was tailored as a stone protocol. No previous studies areavailable for comparison at the time interpretation. Thepartiallyvisualized lung bases appear clear. No abnormality is [...] symphysis. There areno pelvic masses, or pelvic adeno aba. A large right ovarian cyst isidentified measuring 5 cm in diameter. IUD is noted a tampon isseenwithin the vagina. A trace amount of free fluid is seen within thepelvis.IMPRESSION:1. Right ovarian this measuring 5 cm in diameter. Trace amount of freefluid is seen within the pelvis.2. IUD isnoted.3. No intrarenal calculi or obstructive uropathy.Report was printed in the emergency room at 1405 hours. Notes Date/Time Note Provider Source 2023-02-08 16:32:15 3380-22-78O18:32:15F ormatting of this note might be different from the original.Attempted to contact patient x3. No answer, VM left. Zeke Jones RN 02/08/2023 4:32 PM 67458-0Dhaoanclg encounter PlvpXQ3587-69-99H11:32:41Telephone encounter NoteTXT1.2.840.822803.1.13.104.2.7 .2.129380|[id number] for patient [id number] Collins RN[id number] 48FGFOLCQHOJVKBOHPFBJCWD7534-52-50 T16:32:411.2.840.277193.1.72.3.15| 1.2.840.867123.1.13.104.2.7.2.7278 [id number] Zeke Jones RN [facility] 2023-02-08 11:20:18 1161-81-02U96:20:18F ormatting of this note might be different from the original.Attempted to contact patient. No answer, left. Zeke Jones RN 02/08/2023 11:20 AM 68043-4Cpofnsvvu encounter SrdbUP4576-93-85D49:20:45Telephone encounter NoteTXT1.2.840.105787.1.13.104.2.7 .2.796576|[id number] for patient [id number] Collins [id number] 48BJLQTEVQWWQSVOBNFVTFMX3327-00-86 T11:20:451.2.840.487327.1.72.3.15| 1.2.840.079895.1.13.104.2.7.2.7278 [id number] Zeke Jones RN [facility] 2023-02-07 08:56:29 7048-23-71I73:56:29F ormatting of this note might be different from the original.Lm on for pt to return call.BRI GOOD RN 02/07/2023 8:56 AM 12766-1Kashcsxsp encounter IofkAY3508-13-11D03:56:47Telephone encounter NoteTXT1.2.840.247327.1.13.104.2.7 .2.522240|[id number] for patient [id number] sofia Roberts Florentino [id number] 65DCAVBQQSYOAUNQRTSWYAQG8710-82-31 T08:56:471.2.840.407027.1.72.3.15| 1.2.840.897532.1.13.104.2.7.2.7278 [id number] Bri Roberts [facility] 2023-02-07 08:04:23 1855-15-20D42:04:23F ormatting of this note might be different from the original.Patient has an IUD and she is calling complaining of cramping and bleeding that started last night. She is feeling uncomfortable and when bends over hurts more. She is requesting an appointment with [facility] and no appointments available. She also states she tried to feel the strings and was not able to. 31415-9Toojyegpb encounter QoadRQ6517-99-10F23:05:53Telephone encounter NoteTXT1.2.840.589132.1.13.104.2.7 .2.794282|[id number] for patient [id number] S Hernandez[id number] 23LVYGDNRQHYFXYAMEDYMYMP8545-94-30 T08:05:531.2.840.893884.1.72.3.15| 1.2.840.674057.1.13.104.2.7.2.7278 [id number] Taylor Beltran [facility] 2018-09-26 12:55:05 [id number] T12:55:[address] [place] [address] Patient Name: BHARATH FLEMING Patient#: [id number] Date: 09/26/2018 of : 1995 Age/Gender: 23/FHSSV/RM/BED: DSE/Admitting Phys: Jaime Zayas MD OPERATIVE NOTE DATE OF SURGERY: 09/26/2018 SURGEON: Jaime Zayas MD DATABASE MARKETING ANALYST: None. PREOPERATIVE DIAGNOSISSymptomatic cholelithiasis. POSTOPERATIVE DIAGNOSISSymptomatic cholelithiasis. PROCEDURES PERFORMEDLaparoscopic cholecystectomy with intraoperative cholangiogram using ICGfluorescence. ANESTHESIAGeneral endotracheal. ESTIMATED BLOOD LOSSMinimal. SPECIMENSGallbladder. DETAILS OF PROCEDUREThe patient was brought back into the operating room and was placed supine onthe operating table. After general endotracheal anesthesia was induced, thepatient then was prepped and draped in the usual sterile fashion. Appropriate time-out was then called and everybody was in agreement. It is important tonote that prior to the patient coming into the operating room, 5 cc ofindocyanine green were given in order to allow for this to circulateintravascularly. A 5 mm incision was then made in the right subcostal areaandusing an Optiview trocar, access was gained into the abdominal cavity. Thiswasdone uneventfully. The abdomen was then insufflated to 15 mmHg. Thelaparoscope was then introduced and a sweep of the abdominal cavity did notreveal any injuries during the entrance. Two other 5 mm ports were thenplacedunder direct vision, one in the right flank, the other in the supraumbilicalarea. A 12 mm port was then placed in the subxiphoid position. The patientwasthen positioned in reverse Trendelenburg and right side up. The gallbladderwasidentified and cranially retracted. The hepatoduodenal ligament was exposed.The peritoneum was dissected off both medially and laterally. The cystic duct and cystic artery entrance into the gallbladder were clearly identified. Anintraoperative cholangiogram using indocyanine green was then performed. This allowed for clear visualization of the common bile duct, as well as the cystic duct junction. There was no obvious interruption of dye in the common bileduct. The cystic duct and cystic artery were then circumferentially dissected until the critical view of safety was completely and well identified. At thisLegally authenticated by MARQUEZ BAKER 2018-11-12 09:10:27 point, the cystic duct and cystic artery were then doubly clipped proximallyandsingly clipped distally and then transected with ju. The gallbladder wasthen removed from the liver bed in a retrograde fashion, placed in anEndoCatchbag, and then extracted through the 12 mm port in the subxiphoid position. Hemostasis was then verified. No evidence of bleeding was noted at the liverbed. The area was slightly irrigated and then suction dried. The 12 mm portwas then completely removed from the patient's body. The Ubaldo-Thomasoninstrument was then utilized to close the fascia using a kbumro-nz-htpqbjeufdppxgb a 0 Vicryl suture. All trocars were removed under direct vision whiletheabdomen was allowed to completely desufflate. All skin wound incisions werethen verified for adequate hemostasis. Once satisfied, 4-0 Monocryl in arunning subcuticular fashion was then utilized to close all skin woundincisions. Dermabond glue was applied. At the end of our procedure, allinstrument counts, lap counts, and sponges were correct x2. The patienttolerated the procedure well and was transferred to recovery room in stablecondition. Jaime Zayas MD TT: 09/26/2018 12:55:05[facility]/MODLJob #: [id number] Authenticated by:Jaime Zayas MD on 11/12/2018 09:10 AM CDT Legally authenticated by MARQUEZ BAKER 2018-11-12 09:10:27OPOperative muaise64989HTYYWAQ-AIQCUCALLYN ZAYASCARLO2019-05-03 T12:55:[id number] ELPIDIO ZAYASIWQKOOFHWOUQBRKXG5328-39-30O70:12: 50 ELPIDIO ZAYAS [facility] 2018-05-11 12:23:07 WLvvlrunbzl938419063 -05-11T12:23:[address] [address] Patient Name: BHARATH FLEMING Patient#: [id number] Date: 04/28/2018 Date: 04/30/2018 Age/Gender: 22/FDate of : 1995S//BED: [facility]/AAdmitting Phys: Bishop Richardson MD DISCHARGE SUMMARY DATE OF ADMISSION: 04/28/2018 DATE OF DISCHARGE: 04/30/2018 PRIMARY DIAGNOSISTerm with previous section, SECONDARY DIAGNOSISTerm with previous section, PROCEDURE PERFORMEDRepeat section. HOSPITAL COURSEThis patient was admitted to the hospital for repeat . She underwentC-section without any complications. She was able to be discharged home on thend day. DISCHARGE INSTRUCTIONS1. Follow up in the office in 2 weeks.2. No tampons, douching, or sexual intercourse.3. She was to notify me of any complications whatsoever. Bishop Richardson MD TT: 05/11/2018 12:23:07[facility]/MODLJob #: [id number] Authenticated by:Bishop Richardson M.D. on 05/14/2018 05:13 PM DIRECTOR OF HOME ECONOMICS Legally authenticated by DEBRA ALAS 2018-05-14 05:13:22DSDischarge jneajnu42702HZUUKAOJORDAN RICHARDSONOVVSJUBZQMLPTQDUZRRME3720-01-21Q99 :23:[id number] KINS, ZKLNUVPFZVLRORJMRBF7160-86-13X16:1 6:29 BISHOP RICHARDSON BHCIRA 2018-05-10 23:12:01 [id number] -05-10T23:12:0 [address] [place] [address] Patient Name: BHARATH FLEMING Patient#: [id number] Date: 04/28/2018 of : 1995 Age/Gender: 22/FHSSV/RM/BED: [facility]/AAdmitting Phys: Bishop Richardson MD OPERATIVE NOTE DATE OF SURGERY: 04/28/2018 SURGEON: Bishop Richardson MD PRIMARY DIAGNOSISRepeat section at term. SECONDARY DIAGNOSISRepeat section at term. PROCEDURE PERFORMEDRepeat section via low transverse uterine incision. ANESTHESIASpinal. ESTIMATED BLOOD JFWU607 cc. MEDICATIONSIV fluids and Ancef. SPECIMENPlacenta. FINDINGSA male with weight 7 pounds 15 ounces, with Apgars of 9 and 9 at oneandfive minutes, respectively. PROCEDURE IN DETAILThis patient was brought to the operative suite, placed in sitting position,given spinal anesthesia under sterile condition. Next, placed in supineposition, prepped and draped in usual sterile fashion. Pfannenstiel incisionmade on the patient's abdomen from the skin down to subcutaneous tissue to the anterior rectus fascia. Was cut in transverse fashion. Parietal peritoneumwasentered by blunt dissection. DeLee retractor placed over the urinary bladderfor protection. After this was done, transverse incision made in loweruterinesegment. Infant delivered in occipital anterior position. Nasopharynx andoropharynx suctioned thoroughly. Anterior and posterior shoulders weredelivered, remainder of followed. Umbilical cord clamped and cut.Cordblood taken. Placenta manually removed. Uterus then reapproximated andclosedwith 0 Monocryl in a running interlocking fashion. Both ovaries and tubesappeared normal. Next rectus abdominis muscle reapproximated and closed lvep4Jjtoqhmw in simple interrupted stitches. After this was done, anterior rectus fascia closed with 0 Monocryl in running locked fashion. The subcutaneoustissue reapproximated with 0 Monocryl in simple interrupted stitch, and thenskin closed with 3-0 Monocryl subcuticular stitch. At the end of procedure,allneedles and instruments accounted for. Patient tolerated procedure well. Legally authenticated by DEBRA ALAS 2018-05-14 05:13:32 Bishop Richardson MD TT: 05/10/2018 23:12:01[facility]/MODLJob #: [id number] Authenticated by:Bishop Richardson M.D. on 05/14/2018 05:13 PM DIRECTOR OF HOME ECONOMICS Legally authenticated by DEBRA ALAS 2018-05-14 05:13:32OPOperative aaoggc09470STQAQCTJORDAN RICHARDSONXINXJPXAQZLXKGTGAPIKC2477-14-96M24 :12:[id number] KINS, RHWVQBMHDTFVHAGSSXX7562-95-94R74:1 6:29 BISHOP RICHARDSON CIRA
[2023-05-04] MEDS ORDERED: KETOROLAC 30 MG/ML INJ ONE (11:35)
[2023-05-04 12:43] LABS: Specific Gravity 1.007 (1.005-1.030)
[2023-05-04] MEDS ORDERED: methocarbamoL 750 MG TAB ONE (12:46)
[2023-05-04] MEDS ORDERED: MORPHINE 4 MG/ML SYR ONE (12:46)
[2023-05-04 12:47] LABS: Specific Gravity 1.007 (1.005-1.030); Urine Bacteria <20 /HPF (<20); Urine Bilirubin NEGATIVE (Negative); Urine Blood Negative (Negative); Urine Clarity Extremely Turbid (Clear); Urine Color Light-Yellow (Yellow); Urine Glucose NEGATIVE (Negative); Urine Protein NEGATIVE (Negative); Urine RBC <5 /HPF (None Seen); Urine Urobilinogen Normal (Normal); Urine pH 7.5 (5.0-7.0)
--- NOTE | 2023-05-04 14:04 | RAD REPORT ---
EXAM DESCRIPTION: CT - Spine Lumbar Wo Con - 05/04/2023 12:59 pm CLINICAL HISTORY: LOWER BACK PAIN COMPARISON: No comparisons TECHNIQUE: Axial noncontrast CT imaging of the lumbar spine was performed with coronal and sagittal re-formatted images. All CT scans are performed using dose optimization technique as appropriate and may include automated exposure control or mA/KV adjustment according to patient size. FINDINGS: No acute lumbar spine fracture seen. Mild dextroconvex curvature of the lumbar spine is in cidentally noted. This could be positional. No aggressive marrow pattern or malalignment. Paraspinal tissues are normal in thickness. No paraspinal abscess or hematoma seen. Intervertebral disc disease assessment is inherently limited by CT. Within these limitations, central /left subarticular disc extrusion is noted at L4-5, asymmetrically narrowing the left lateral recess and probably resulting in at least mild central canal stenosis. IUD in place. IMPRESSION: No acute traumatic lumbar spine fracture or subluxation. Within limits of noncontrast CT evaluation, a large central/left subarticular disc extrusion is noted at L4-5, resulting in at least mild central canal stenosis and asymmetric left lateral recess narrow ing. The findings, as well as impingement of any neural structures would be better evaluated on dedic ated lumbar spine MRI, as clinically indicated.
[2023-05-04] MEDS ORDERED: predniSONE 20 MG TAB ONE (15:27)
[2023-05-04] MEDS ORDERED: FAMOTIDINE 20 MG/2 ML VIAL IV ONE (15:27)
[2023-05-04] MEDS ORDERED: HYDROCODONE/APAP 5/325 MG TAB ONE (16:10)
--- NOTE | 2023-05-04 17:11 | ER ---
Nurse's Notes [facility] Name: Rod Chiu Age: 27 yrs Sex: Female : 1995 Arrival Date: 05/04/2023 Time: 10:20 Bed 5 Private MD: Diagnosis: Low back pain-Acute exacerbation of chronic back pain Presentation: 05/04 10:26 Chief complaint: Patient states: EMS toned out to patient home for back pain. Reports ld1 sneezing in shower and felt tightness to back. Denies fall. Coronavirus screen: At this time, the client does not indicate any symptoms associated with coronavirus-19. Ebola Screen: No symptoms or risks identified at this time. Risk Assessment: Do you want to hurt yourself or someone else? Patient reports no desire to harm self or others. Onset of symptoms was May 04, 2023. 10:26 Method Of Arrival: EMS: [facility] ld1 10:26 Acuity: JAIDEN 3 hb 10:32 Initial Sepsis Screen: Does the patient meet any 2 criteria? No. Patient's initial ld1 sepsis screen is negative. Does the patient have a suspected source of infection? No. Patient's initial sepsis screen is negative. Care prior to arrival: Medication(s) given: zofran 4 mg, Fentanyl 100mcg. Triage Assessment: 10:27 General: Appears in no apparent distress. uncomfortable, Behavior is calm, cooperative, ld1 appropriate for age. Pain: Complains of pain in back Pain does not radiate. Pain currently is 8 out of 10 on a pain scale. Quality of pain is described as sharp, shooting, throbbing, Pain began 3 hours ago. Is continuous. EENT: No signs and/or symptoms were reported regarding the EENT system. Neuro: Level of Consciousness is awake, alert, obeys commands, Oriented to person, place, time, situation. Cardiovascular: Capillary refill < 3 seconds Patient's skin is warm and dry. Respiratory: Airway is patent Respiratory effort is even, unlabored. GI: Abdomen is round non-distended. : No signs and/or symptoms were reported regarding the genitourinary system. Derm: No signs and/or symptoms reported regarding the dermatologic system. Musculoskeletal: Range of motion: intact in all extremities. Historical: - Allergies: 10:27 No Known Allergies; ld1 - PMHx: 10:27 chronic back pain; HSV 1; ld1 - PSHx: 10:27 section; Cholecystectomy; ld1 - Immunization history:: Adult Immunizations up to date. - Social history:: Smoking status: Patient denies any tobacco usage or history of. Patient/guardian denies using alcohol. Screenin:31 [facility] ED Fall Risk Assessment (Adult) History of falling in the last 3 months, ld1 including since admission No falls in past 3 months (0 pts). Abuse screen: Denies threats or abuse. Denies injuries from another. Nutritional screening: No deficits noted. Tuberculosis screening: No symptoms or risk factors identified. Assessment: 10:30 Reassessment: see triage assessment. Neuro: Level of Consciousness is awake, alert, tm6 obeys commands, Oriented to person, place, time, situation. 12:20 Reassessment: No changes from previously documented assessment. Patient is alert, ld1 oriented x 3, equal unlabored respirations, skin warm/dry/pink. Patient states symptoms have not improved. 13:17 Reassessment: Patient and/or family updated on plan of care and expected duration. Pain tm6 level reassessed. Patient is alert, oriented x 3, equal unlabored respirations, skin warm/dry/pink. 14:46 Reassessment: No changes from previously documented assessment. Patient and/or family tm6 updated on plan of care and expected duration. Pain level reassessed. Patient is alert, oriented x 3, equal unlabored respirations, skin warm/dry/pink. 15:17 Reassessment: Patient and/or family updated on plan of care and expected duration. Pain tm6 level reassessed. Patient is alert, oriented x 3, equal unlabored respirations, skin warm/dry/pink. Patient states symptoms have not improved. 16:00 Reassessment: No changes from previously documented assessment. patient now tm6 experiencing nausea Patient states symptoms have not improved. 17:00 Reassessment: Patient and/or family updated on plan of care and expected duration. Pain tm6 level reassessed. Patient is alert, oriented x 3, equal unlabored respirations, skin warm/dry/pink. Patient states symptoms have not improved. Vital Signs: 10:31 BP 121 / 72; Pulse 86; Resp 18; Temp 97.9(TE); Pulse Ox 96% on R/A; Weight 84.37 kg; ld1 Height 5 ft. 5 in. ; Pain 10/10; 11:10 BP 111 / 70; Pulse 89; Resp 18; Pulse Ox 95% ; ko1 13:15 BP 114 / 73; Pulse 83; Pulse Ox 100% ; Pain 6/10; tm6 14:46 BP 110 / 51; Pulse 94; Pulse Ox 100% on R/A; tm6 15:18 BP 107 / 68; Pulse 91; Pulse Ox 100% on R/A; Pain 9/10; tm6 16:00 Pain 8/10; tm6 16:00 BP 114 / 69; Pulse 93; Pulse Ox 98% ; tm6 16:59 BP 100 / 51; Pulse 83; Pulse Ox 98% on R/A; Pain 8/10; tm6 10:31 Body Mass Index 30.95 (84.37 kg, 165.1 cm) ld1 10:31 Pain Scale: Adult ld1 13:15 Pain Scale: Adult tm6 15:18 Pain Scale: Adult tm6 16:00 Pain Scale: Adult tm6 16:59 Pain Scale: Adult tm6 ED Course: 10:26 Patient arrived in ED. ld1 10:27 Triage completed. ld1 10:27 Alberto Esteban is Attending Physician. ci 10:29 Arm band placed on right wrist. ld1 10:30 Olivia Roy, RN is Primary Nurse. tm6 10:31 Patient has correct armband on for positive identification. Placed in gown. Bed in low ld1 position. Call light in reach. Side rails up X2. schedule clerk on. Pulse ox on. NIBP on. Door closed. Noise minimized. Warm blanket given. 10:31 No provider procedures requiring assistance completed. Maintain EMS IV. Dressing ld1 intact. Good blood return noted. Site clean \T\ dry. Gauge \T\ site: 20G LAC. 10:33 Primary Nurse role handed off by Olivia Roy, RN ld1 10:33 Becki Workman, JORDAN is Primary Nurse. ld1 12:19 Urinalysis w/ reflexes Sent. ld1 12:19 Test, Urine Sent. ld1 13:00 CT Lumbar Spine Wo Con In Process Unspecified. EDMS 17:25 Provided Education on: medication usage. tm6 17:25 IV discontinued, intact, bleeding controlled, No redness/swelling at site. Pressure tm6 dressing applied. Administered Medications: 11:22 Not Given (Physician Discretion): ezwvdtyjv26 mg IM once ld1 11:22 Drug: Ketorolac IVP 15 mg IVP once Route: IVP; Site: left antecubital; ld1 12:35 Drug: Methocarbamol PO 750 mg PO once Route: PO; ld1 12:35 Drug: morphine IVP or IV 4 mg IVP once over 4 mins Route: IVP; Infused Over: 4 mins; ld1 Site: left antecubital; 15:17 Drug: Famotidine IVP 20 mg IVP once; dilute with 10 mL 0.9% NaCl; give over 2 minutes tm6 Route: IVP; Site: left antecubital; 15:17 Drug: predniSONE PO 40 mg PO once Route: PO; tm6 16:00 Drug: HYDROcodone-acetaminophen PO 5 mg-325 mg 1 tabs PO once Route: PO; tm6 Medication: 11:10 VIS not applicable for this client. ko1 Outcome: 17:10 Discharge ordered by . ci 17:25 Discharged to home via wheelchair, with family, tm6 17:25 Condition: stable 17:25 Discharge instructions given to patient, family, Instructed on discharge instructions, follow up and referral plans. medication usage, Demonstrated understanding of instructions, follow-up care, medications, Prescriptions given X 3, 17:25 Patient left the ED. tm6 Signatures: Dispatcher [employer] EDMS Carla Humphreys RN RN Becki Workman RN RN ld1 Kristen Hicks RN RN ko1 Alberto Esteban Tawney, RN RN tm6 Corrections: (The following items were deleted from the chart) 17:06 10:26 Acuity: JAIDEN 4 ld1 hb
--- NOTE | 2023-05-04 17:11 | EDPHYS ---
Physician Documentation [facility] Name: Rod Chiu Age: 27 yrs Sex: Female : 1995 Arrival Date: 05/04/2023 Time: 10:20 Bed 5 Private MD: ED Physician Alberto Esteban HPI: 05/04 12:29 This 27 yrs old Female presents to ER via EMS with complaints of Back Pain. ci 12:29 Patient is a 27-year-old female with PMH herniated disc who presents to the ED with ci chief complaint of low back pain that began this morning. Patient reports she always has low back pain but a few days ago she coughed and that exacerbated her symptoms. She was in the shower this morning and coughed again and pain has been excruciating since then. Pain is sharp, radiates from across the low back and into bilateral legs. She denies any trauma/fall. She denies bowel/bladder dysfunction, denies saddle anesthesia, fever, IVDU, history of cancer. Patient reports she has done physical therapy in the past which seem to help her symptoms. She received fentanyl via EMS with no improvement.. Historical: - Allergies: 10:27 No Known Allergies; ld1 - PMHx: 10:27 chronic back pain; HSV 1; ld1 - PSHx: 10:27 section; Cholecystectomy; ld1 - Immunization history:: Adult Immunizations up to date. - Social history:: Smoking status: Patient denies any tobacco usage or history of. Patient/guardian denies using alcohol. ROS: 12:29 Constitutional: Negative for fever, chills, and weight loss, Skin: Negative for injury, ci rash, and discoloration, Neuro: Negative for headache, weakness, numbness, tingling, and seizure, 12:29 Constitutional: Positive for 12:29 Back: Positive for decreased range of motion, pain at rest, pain with movement, radiated pain, Exam: 12:31 Constitutional: This is a well developed, well nourished patient who is awake, alert, ci and in no acute distress. Head/Face: Normocephalic, atraumatic. Eyes: Pupils equal round and reactive to light, extra-ocular motions intact. Lids and lashes normal. Conjunctiva and sclera are non-icteric and not injected. Cornea within normal limits. Periorbital areas with no swelling, redness, or edema. ENT: Nares patent. No nasal discharge, no septal abnormalities noted. Tympanic membranes are normal and external auditory canals are clear. Oropharynx with no redness, swelling, or masses, exudates, or evidence of obstruction, uvula midline. Mucous membranes moist. Neck: Trachea midline, no thyromegaly or masses palpated, and no cervical lymphadenopathy. Supple, full range of motion without nuchal rigidity, or vertebral point tenderness. No Meningismus. Chest/axilla: Normal chest wall appearance and motion. Nontender with no deformity. No lesions are appreciated. Cardiovascular: Regular rate and rhythm with a normal S1 and S2. No gallops, murmurs, or rubs. Normal PMI, no JVD. No pulse deficits. Respiratory: Lungs have equal breath sounds bilaterally, clear to auscultation and percussion. No rales, rhonchi or wheezes noted. No increased work of breathing, no retractions or nasal flaring. Abdomen/GI: Soft, non-tender, with normal bowel sounds. No distension or tympany. No guarding or rebound. No evidence of tenderness throughout. Back: No spinal tenderness. No costovertebral tenderness. Full range of motion. Skin: Warm, dry with normal turgor. Normal color with no rashes, no lesions, and no evidence of cellulitis. MS/ Extremity: Pulses equal, no cyanosis. Neurovascular intact. Full, normal range of motion. Neuro: Awake and alert, GCS 15, oriented to person, place, time, and situation. Cranial nerves II-XII grossly intact. Motor strength 5/5 in all extremities. Sensory grossly intact. Cerebellar exam normal. Normal gait. Psych: Awake, alert, with orientation to person, place and time. Behavior, mood, and affect are within normal limits. Vital Signs: 10:31 BP 121 / 72; Pulse 86; Resp 18; Temp 97.9(TE); Pulse Ox 96% on R/A; Weight 84.37 kg; ld1 Height 5 ft. 5 in. ; Pain 10/10; 11:10 BP 111 / 70; Pulse 89; Resp 18; Pulse Ox 95% ; ko1 13:15 BP 114 / 73; Pulse 83; Pulse Ox 100% ; Pain 6/10; tm6 14:46 BP 110 / 51; Pulse 94; Pulse Ox 100% on R/A; tm6 15:18 BP 107 / 68; Pulse 91; Pulse Ox 100% on R/A; Pain 9/10; tm6 16:00 Pain 8/10; tm6 16:00 BP 114 / 69; Pulse 93; Pulse Ox 98% ; tm6 16:59 BP 100 / 51; Pulse 83; Pulse Ox 98% on R/A; Pain 8/10; tm6 10:31 Body Mass Index 30.95 (84.37 kg, 165.1 cm) ld1 10:31 Pain Scale: Adult ld1 13:15 Pain Scale: Adult tm6 15:18 Pain Scale: Adult tm6 16:00 Pain Scale: Adult tm6 16:59 Pain Scale: Adult tm6 MDM: 10:27 Patient medically screened. ci 12:32 Differential diagnosis: chronic back pain, Fracture Ligament Injury ruptured disc, ci sprain, vertebral fracture. 12:32 Data reviewed: vital signs, nurses notes. Historians other than the Patient: ci Spouse/Significant Other: Fianc. Medication response: Toradol did not change the patient's pain. 17:06 ED course: Patient ambulated to the bathroom, reports that her pain has improved but ci after walking her pain went back to a 9 out of 10. Will try [place], prednisone. Patient also complaining of heartburn after getting Toradol. Will try some Pepcid.. 05/04 11:38 Order name: Urinalysis w/ reflexes; Complete Time: 14:37 ci 05/04 11:39 Order name: Test, Urine; Complete Time: 14:37 ci 05/04 12:29 Order name: CT Lumbar Spine Wo Con; Complete Time: 14:37 ci Administered Medications: 11:22 Not Given (Physician Discretion): [id number] mg IM once ld1 11:22 Drug: Ketorolac IVP 15 mg IVP once Route: IVP; Site: left antecubital; ld1 12:35 Drug: Methocarbamol PO 750 mg PO once Route: PO; ld1 12:35 Drug: morphine IVP or IV 4 mg IVP once over 4 mins Route: IVP; Infused Over: 4 mins; ld1 Site: left antecubital; 15:17 Drug: Famotidine IVP 20 mg IVP once; dilute with 10 mL 0.9% NaCl; give over 2 minutes tm6 Route: IVP; Site: left antecubital; 15:17 Drug: predniSONE PO 40 mg PO once Route: PO; tm6 16:00 Drug: HYDROcodone-acetaminophen PO 5 mg-325 mg 1 tabs PO once Route: PO; tm6 Disposition Summary: 05/04/23 17:10 Discharge Ordered Notes: Location: Home ci Condition: Stable ci Diagnosis - Low back pain - Acute exacerbation of chronic back pain ci Followup: ci - With: Private Physician - When: 1 - 2 days - Reason: Recheck today's complaints, Re-evaluation by your physician Discharge Instructions: - Discharge Summary Sheet ci - Acute Back Pain, Adult ci - Musculoskeletal Pain ci - Chronic Back Pain, [id number] ci Forms: - Medication Reconciliation Form ci - Thank You Letter ci - Antibiotic Education ci - Prescription Opioid Use ci - Patient Portal Instructions ci - Leadership Thank You Letter ci Prescriptions: - acetaminophen-codeine 300-15 mg Oral tablet - take 1 tablet ORAL route every 6 hours as needed for pain; 12 tablet; Refills: ci 0, Product Selection Permitted - Naprosyn 500 mg Oral Tablet - take 1 tablet ORAL route 2 times per day take with food; 30 tablet; Refills: 0, ci Product Selection Permitted - Medrol ([place]) 4 mg Oral Tablets, Dose Pack - take 1 tablet ORAL route as directed - follow package instructions; 1 packet; ci Refills: 0, Product Selection Permitted Signatures: Dispatcher [employer] Becki Browning RN RN ld1 IhAlberto anguiano Tawney, RN RN tm6
[2023-05-04 17:31] VITALS: TEMP 97.9
[2023-05-04 17:35] VITALS: O2SAT 98
[2023-05-04 17:37] VITALS: BP 100/51
== END 2023-05-04 17:25 | disposition home or self-care (01) ==
LOC: ER 10:20
DX: M54.50 Low back pain, unspecified (principal); G89.29 Other chronic pain
CPT/HCPCS: 72131; 81001; 81025; 96374; 96375; 99285; J7512